=== PATIENT | male | born 1965 | race Caucasian/White ===

== ENCOUNTER 2018-06-07 02:07 | Emergency (ER) | payer OTHER, SELFPAY ==
[2018-06-07 02:08] VITALS: BP 114/82; PULSE 81; RESP 20; TEMP 36.8; O2SAT 96; BMI 32.8
--- NOTE | 2018-06-07 02:18 | EKG12_ITS ---
Test Reason : ABDOMINAL PAIN Blood Pressure : / mmHG Vent. Rate : 069 BPM Atrial Rate : 069 BPM P-R Int : 164 ms QRS Dur : 090 ms QT Int : 382 ms P-R-T Axes : 047 008 034 degrees QTc Int : 409 ms Normal sinus rhythm Normal ECG Confirmed by NATALIE BOLTON, BHAVNA ([id number]), assistant production editor SHELBY NEGRETE ([id number]) on 06/09/2018 8:19:34 AM Referred By: DAREN Confirmed By:BHAVNA ESTRADA MD
--- NOTE | 2018-06-07 02:18 | CT_ITS ---
STUDY: CT ABDOMEN AND PELVIS WITH CONTRAST REASON FOR EXAM: Male, 52 years old. Abdominal pain RADIATION DOSAGE (If Supplied By Facility): CTDIvol = ( 18.95 ) mGy, DLP = ( 1915.61 ) mGycm TECHNIQUE: Transaxial images were obtained from the dome of the diaphragm to the symphysis pubis without oral contrast. 100ml ml of Isovue 300 contrast was administered. Sagittal and coronal images were reconstructed. Individualized dose optimization techniques were used for this CT. COMPARISON: None. FINDINGS: The visualized lung bases are unremarkable. The visualized portions of the heart are within normal limits. Normal liver. Normal gallbladder and extrahepatic biliary system. Normal spleen. The pancreas is slightly edematous. There are numerous calcifications. Findings suggest possibility of mild acute pancreatitis on chronic pancreatitis. There is NO mass, abscess or pseudocyst. Normal bilateral adrenal glands. Normal right kidney. Normal left kidney. Normal visualized stomach. Normal small intestine. Normal colon. The appendix is visualized and appears normal. Normal abdominal aorta. Normal inferior vena cava. Normal retroperitoneum. Normal urinary bladder. There is NO ascites, free air, abscess or adenopathy. Normal abdominal wall. Normal osseous structures. CT/Abdomen/Pelvis W IV Cont ONLY IMPRESSION: The pancreas is slightly edematous. There are numerous calcifications. Findings suggest possibility of mild acute pancreatitis on chronic pancreatitis. There is NO mass, abscess or pseudocyst. Normal bilateral adrenal glands. Normal right kidney. Normal left kidney. Normal visualized stomach. Normal small intestine. Normal colon. The appendix is visualized and appears normal. Normal abdominal aorta. Normal inferior vena cava. Normal retroperitoneum. Normal urinary bladder. There is NO ascites, free air, abscess or adenopathy. Electronically Signed: Gautam Ospina MD at 3:48 EST , Service support ,
--- NOTE | 2018-06-07 02:19 | CT_ITS ---
STUDY: CT CHEST WITH CONTRAST REASON FOR EXAM: Male, 52 years old. Abdominal pain and chest pain RADIATION DOSAGE (If Supplied By Facility): CTDIvol = ( 18.95 ) mGy, DLP = ( 1915.61 ) mGycm TECHNIQUE: Transaxial imaging was performed following intravenous administration of 100ml ml of Isovue 300 contrast material. Individualized dose optimization techniques were used for this CT. COMPARISON: None. FINDINGS: The lungs are normal. There is no demonstrated pleural abnormality. Normal heart and pericardium. Normal mediastinum. Normal hilar regions. Normal enhanced pulmonary arteries. Normal aorta arch and descending thoracic aorta. Normal osseous structures. CT/Chest WITH Contrast IMPRESSION: Normal enhanced CT Chest examination. Electronically Signed: Gautam Ospina MD at 3:53 EST , Service support ,
--- NOTE | 2018-06-07 02:21 | ED.RN ---
NO OLD EKGS IN MUSE
[2018-06-07 02:29] VITALS: PULSE 70; RESP 13; O2SAT 97
[2018-06-07] MEDS: 0.9% Normal Saline 1,000 ML 1000 ML IV (02:29)
[2018-06-07 02:45] LABS: ALB/GLOB Ratio 0.8 RATIO (0.9-2.4); AST(SGOT) 12 U/L (15-37); Alanine Aminotransfer ALT/SGPT 28 U/L (16-61); Albumin, Serum 3.6 g/dL (3.2-5.0); Alkaline Phosphatase 111 U/L (45-117); Anion Gap 9 (5-15); BUN 10 mg/dL (7-18); BUN/Creat Ratio 11.8 RATIO (10-20); Calcium,Total 8.6 mg/dL (8.5-10.1); Chloride 105 mmol/L (98-107); Creatinine, Serum 0.84 mg/dL (0.70-1.30); EST Glomerular Filtration Rate 101 mL/min (>60); Est Glom Filt Rate - Afr Amer 123 mL/min (>60); Estimated Creatinine Clearance 97.27 ml/min; Globulin 4.4 g/dL (2.2-4.2); Glucose 117 mg/dL (74-106); Potassium 3.6 mmol/L (3.5-5.1); Sodium Level 141 mmol/L (136-145)
[2018-06-07 03:02] LABS: Lipase 2920 U/L (73-393)
[2018-06-07 03:10] LABS: Absolute Lymphocyte Count 2.57 X10^3/ul (0.83-4.51); Absolute Neutrophil Count 6.9 X10^3/uL (2.0-7.7); Basophil# 0.06 X10^3/uL; Basophil% 0.5 % (0-1); Eosinophil# 0.36 X10^3/uL; Eosinophils% 3.2 % (0-5); Hematocrit 43.9 % (40-54); Hemoglobin 14.8 g/dl (13.0-16.5); Lymphocyte # 2.57 X10^3/ul (4.0); Lymphocyte % 23.2 % (19-41); Mean Corp Hgb Conc 33.7 g/gl (32-36); Mean Corpuscular Hgb 28.3 pg (27.0-32.0); Mean Corpuscular Volume 83.9 fL (80-94); Mean Platelet Vol. 9.9 fl (6.2-12.0); Monocyte# 1.21 X10^3/uL; Monocyte% 10.9 % (0-10); Neutrophil # 6.86 X10^3/uL (2.7-7.7); Neutrophil % 61.9 % (47-70); POSITIVE COUNT NO; POSITIVE DIFFERENTIAL NO; POSITIVE MORPHOLOGY NO; Platelet Count 298 K/mm3 (150-450); Red Blood Count 5.23 M/mm3 (4.6-6.2); White Blood Count 11.1 K/mm3 (4.4-11.0)
--- NOTE | 2018-06-07 04:04 | ED.VISSUMM ---
- ER Visit Summary Date of Service: 06/07/18 Chief Complaint: [abd pain, back pain] History of Present Illness: The patient is a 52 M [that presents with upper abdominal and back pain for the last 4-5 days. He denies any nausea or vomiting. No other radiation of the pain. He denies any fall or injury. No history of aneurysm. No neurological symptoms. He denies any chest pain or dyspnea. He overall appears well and nontoxic. He has no other complaints.] Physical Examination: [General: The patient appears well and in no apparent distress. Patient is resting comfortably on cart. Skin: Warm, dry, no pallor noted. No rash. Head: Normocephalic, atraumatic Neck: Supple, nontender. Eye: PERRLA, EOMI ENT: Moist mucus membranes, pharynx within normal limits. Cardiovascular: Regular Rate and Rhythm, no gallups or rubs Respiratory: Patient is in no distress, no accessory muscle use, lungs are clear to auscultation, no wheezing, rales or rhonchi Musculoskeletal: normal ROM, no deformity, no tenderness, no swelling. 2+ radial and DP pulses symmetric. GI: Mild epigastric tenderness to palpation, no masses appreciated. No rebound, guarding, or rigidity noted. Neurological: A&O, normal strength and sensation. GCS 15. Psychiatric: Cooperative] Test Results: [] Emergency Department Course and Treatment: [Blood work shows elevated lipase, remainder of transaminases and bilirubin are normal. EKG shows sinus rhythm with a rate of 69, no acute ischemic changes or arrhythmia. Normal intervals. No heart block. Patient was ordered morphine and Zofran however he declined. He would only accept Tylenol for pain which he took and tolerated without difficulty. On reevaluation at 0400 he is resting comfortably and states he feels improved. CT imaging shows edematous pancreas consistent with acute pancreatitis. CT imaging of the chest shows no acute process. There is no evidence of mass or other acute process. At this time I do not feel patient requires hospitalization. His pain is well controlled and he is not actively vomiting. I will write him a prescription for [place] to use for breakthrough pain if needed and instructed him on the use of this medication. He will otherwise use Tylenol [id number] as needed and as directed for pain I instructed him to follow closely with his primary provider within 24 hours He will call first thing this morning for a close follow-up appointment and I instructed him to return to the emergency department with any new or worsening symptoms. He denies any new medications. No significant alcohol intake. Patient and family understand and are agreeable with this plan of care. Patient was discharged home in stable and improved condition.] Treatment Plan: [see above] Disposition: [Discharge home, stable and improved condition] Impression: [Acute pancreatitis ] This note was generated with [employer] dictation software. It may contain incorrect words, spelling, and punctuation that were not noted in review of the chart prior to signing ED Disposition - Plan for ED Patient: Disposition: Home or Assisted Living Chief Complaint: Abd Pain Instructions: ED Pancreatitis Prescriptions: Hydrocodone Bitart/Apap 5-325 [[place] 5MG-325MG] 1 tab PO Q6H PRN PRN 3 Days #12 tab PRN Reason: Pain Referrals: Doe Mcrae, DRIVE IN TELLER-C [Primary Care Provider] -
[2018-06-07] MEDS: Acetaminophen 500 MG Tablet 1000 MG PO (04:07)
--- NOTE | 2018-06-07 04:09 | ED.DCSUM_ITS ---
- ER Visit Summary Date of Service: 06/07/18 Chief Complaint: [abd pain, back pain] History of Present Illness: The patient is a 52 M [that presents with upper abdominal and back pain for the last 4-5 days. He denies any nausea or vomiting. No other radiation of the pain. He denies any fall or injury. No history of aneurysm. No neurological symptoms. He denies any chest pain or dyspnea. He overall appears well and nontoxic. He has no other complaints.] Physical Examination: [General: The patient appears well and in no apparent distress. Patient is resting comfortably on cart. Skin: Warm, dry, no pallor noted. No rash. Head: Normocephalic, atraumatic Neck: Supple, nontender. Eye: PERRLA, EOMI ENT: Moist mucus membranes, pharynx within normal limits. Cardiovascular: Regular Rate and Rhythm, no gallups or rubs Respiratory: Patient is in no distress, no accessory muscle use, lungs are clear to auscultation, no wheezing, rales or rhonchi Musculoskeletal: normal ROM, no deformity, no tenderness, no swelling. 2+ radial and DP pulses symmetric. GI: Mild epigastric tenderness to palpation, no masses appreciated. No rebound, guarding, or rigidity noted. Neurological: A&O, normal strength and sensation. GCS 15. Psychiatric: Cooperative] Test Results: [] Emergency Department Course and Treatment: [Blood work shows elevated lipase, remainder of transaminases and bilirubin are normal. EKG shows sinus rhythm with a rate of 69, no acute ischemic changes or arrhythmia. Normal intervals. No heart block. Patient was ordered morphine and Zofran however he declined. He would only accept Tylenol for pain which he took and tolerated without difficulty. On reevaluation at 0400 he is resting comfortably and states he feels improved. CT imaging shows edematous pancreas consistent with acute pancreatitis. CT imaging of the chest shows no acute process. There is no evidence of mass or other acute process. At this time I do not feel patient requires hospitalization. His pain is well controlled and he is not actively vomiting. I will write him a prescription for [place] to use for breakthrough pain if needed and instructed him on the use of this medication. He will otherwise use Tylenol [id number] as needed and as directed for pain I instructed him to follow closely with his primary provider within 24 hours He will call first thing this morning for a close follow-up appointment and I instructed him to return to the emergency department with any new or worsening symptoms. He denies any new medications. No significant alcohol intake. Patient and family understand and are agreeable with this plan of care. Patient was discharged home in stable and improved condition.] Treatment Plan: [see above] Disposition: [Discharge home, stable and improved condition] Impression: [Acute pancreatitis ] This note was generated with [employer] dictation software. It may contain incorrect words, spelling, and punctuation that were not noted in review of the chart prior to signing ED Disposition - Plan for ED Patient: Disposition: Home or Assisted Living Chief Complaint: Abd Pain Instructions: ED Pancreatitis Prescriptions: Hydrocodone Bitart/Apap 5-325 [[place] 5MG-325MG] 1 tab PO Q6H PRN PRN 3 Days #12 tab PRN Reason: Pain Referrals: Doe Mcrae, DOCK GRADER-C [Primary Care Provider] -
[2018-06-07 04:18] VITALS: BP 127/76; PULSE 60; O2SAT 98
== END 2018-06-07 04:18 | disposition home or self-care (01) ==
PROVIDERS: Emergency Provider Emergency Medicine; Family Provider Nurse Practitioner Family; PCP Nurse Practitioner Family
DX: K85.90 Acute pancreatitis without necrosis or infection, unspecified (principal); Z72.0 Tobacco use
CPT/HCPCS: 71260; 74177; 80053; 83690; 84484; 85025; 93005; 96360; 96361; 99284; J7030; Q9967; A4216; J2405

== ENCOUNTER → 2018-07-13 10:16 | Outpatient (CLI) | payer OTHER, SELFPAY ==
[2018-07-13 12:35] LABS: AST(SGOT) 16 U/L (15-37); Alanine Aminotransfer ALT/SGPT 28 U/L (16-61); Albumin, Serum 3.6 g/dL (3.2-5.0); Alkaline Phosphatase 95 U/L (45-117); Bilirubin, Direct 0.11 mg/dL (0.00-0.30); Globulin 3.8 g/dL (2.2-4.2); Lipase 117 U/L (73-393); Protein, Total 7.4 g/dL (6.4-8.2)
== END ==
PROVIDERS: Family Provider Nurse Practitioner Family; PCP Nurse Practitioner Family; Referring Provider Internal Medicine Gastroenterology; Visit Provider Internal Medicine Gastroenterology
DX: K85.90 Acute pancreatitis without necrosis or infection, unspecified (principal); R10.9 Unspecified abdominal pain; R11.0 Nausea; R63.4 Abnormal weight loss
CPT/HCPCS: 36415; 80076; 83690

== ENCOUNTER 2018-08-25 10:17 | Emergency (ER) | payer OTHER, SELFPAY ==
[2018-08-25 10:18] VITALS: BP 98/86; PULSE 82; RESP 14; TEMP 36.6; O2SAT 96; BMI 31.1
--- NOTE | 2018-08-25 10:31 | EKG12_ITS ---
Test Reason : Blood Pressure : / mmHG Vent. Rate : 073 BPM Atrial Rate : 073 BPM P-R Int : 146 ms QRS Dur : 084 ms QT Int : 388 ms P-R-T Axes : 048 036 043 degrees QTc Int : 427 ms Normal sinus rhythm Normal ECG Confirmed by NATALIE BOLTON, BHAVNA ([id number]), pictures editor JORGE BATISTA ([id number]) on 08/29/2018 10:22:00 AM Referred By: MATTHEW Confirmed By:BHAVNA ESTRADA MD
--- NOTE | 2018-08-25 10:32 | RAD_ITS ---
STUDY: X-RAY CHEST REASON FOR EXAM: Male, 53 years old. Dizziness. Hypotension. TECHNIQUE: Single AP portable view of the chest. COMPARISON: None. FINDINGS: EKG electrodes are seen. The lungs are clear and expanded. There is no demonstrated pleural abnormality. Normal size heart. Normal mediastinum and sobia. Normal visualized pulmonary arteries. Normal visualized aortic arch and descending thoracic aorta. Normal visualized thoracic spine. Normal visualized ribs, clavicles, and shoulders. There is no demonstrated abnormality of the visualized soft tissue structures of the upper abdomen. RAD/Chest 1 View (Portable) IMPRESSION: Normal x-ray examination of the chest. Electronically Signed: Ayo Kwon, at 11:13 EDT , Service support ,
--- NOTE | 2018-08-25 10:51 | ED.VISSUMM ---
- ER Visit Summary Date of Service: 08/25/18 Chief Complaint: [] Vomiting blood today x1 History of Present Illness: The patient is a 53 M [] he indicates he suddenly vomited at least one cupful of bright red blood today, he has no history of GI bleeding nonsteroidal use for anticoagulants, no blood per rectum problems have been normal, he does indicate he has a history of nonspecific abdominal pain he had pancreatitis in June, he was told to take proton pump inhibitors which she has been doing the abdominal discomfort has persisted it is not any different than its baseline, he was seen by Dr. Solo of GI had what sounds like an EGD that showed nothing acute, no ulcers no varices, He has no history of alcohol abuse liver disorder no cardiovascular history, he is known to have a blood pressure of 90 over palp and indicates his normal blood pressure is 120/80 Physical Examination: [] General, no distress resting comfortably he has blood to his mustache HEENT is generally unremarkable The neck is supple no adenopathy Cardiovascular, regular rate and rhythm Lungs, clear bilateral Abdomen, soft nontender, rectal exam shows brown stool Extremities, no clubbing cyanosis or edema Neurologic, awake alert answering questions appropriately moving all 4 extremities Test Results: [] Emergency Department Course and Treatment: [] Given all the above and the hypotension IV fluids x2 fluid bolus, type and screen Protonix, we reached out to [facility] they are both full and cannot accept him, will be calling other tertiary care centers as there is no GI services available here at this facility and arrange for his transfer to an appropriate tertiary care center that has capacity to manage his condition I discussed all the above with him and he agrees, he remains him dynamically stable Treatment Plan: [] The patient's blood pressure after IV fluids is now 105 over about 70, his heart rate is 80 NG tube was placed and is productive about 50-100 cc of red blood on initial insertion and none afterwards, his hemoglobin is 12 his baseline hemoglobin is 15 and the rest of his labs are unremarkable EKG shows a sinus rhythm nothing acute the chest x-ray was unremarkable No GI capability at this facility, as a result we called multiple tertiary care centers to arrange for his transfer including [facility] that could not accept him, [facility] they could not accept him, [facility] but could not accept him and recommended we contact [facility], I felt the patient should be seen at tertiary care center, I called [facility] who accepted him in transfer discussed all the above with the patient and they agree to transfer via paramedics to [facility] he will be taken directly to the emergency department Disposition: [] Transfer to [facility] for management of upper GI bleed Impression: [] Vomiting blood, upper GI bleed, hypotension, history of gastritis This note was generated with [employer] dictation software. It may contain incorrect words, spelling, and punctuation that were not noted in review of the chart prior to signing ED Disposition - Plan for ED Patient: Referrals: Doe Mcrae, FINISHING ROOM OPERATOR-C [Primary Care Provider] -
--- NOTE | 2018-08-25 10:54 | ED.DCSUM_ITS ---
- ER Visit Summary Date of Service: 08/25/18 Chief Complaint: [] Vomiting blood today x1 History of Present Illness: The patient is a 53 M [] he indicates he suddenly vomited at least one cupful of bright red blood today, he has no history of GI bleeding nonsteroidal use for anticoagulants, no blood per rectum problems have been normal, he does indicate he has a history of nonspecific abdominal pain he had pancreatitis in June, he was told to take proton pump inhibitors which she has been doing the abdominal discomfort has persisted it is not any different than its baseline, he was seen by Dr. Solo of GI had what sounds like an EGD that showed nothing acute, no ulcers no varices, He has no history of alcohol abuse liver disorder no cardiovascular history, he is known to have a blood pressure of 90 over palp and indicates his normal blood pressure is 120/80 Physical Examination: [] General, no distress resting comfortably he has blood to his mustache HEENT is generally unremarkable The neck is supple no adenopathy Cardiovascular, regular rate and rhythm Lungs, clear bilateral Abdomen, soft nontender, rectal exam shows brown stool Extremities, no clubbing cyanosis or edema Neurologic, awake alert answering questions appropriately moving all 4 extremities Test Results: [] Emergency Department Course and Treatment: [] Given all the above and the hypotension IV fluids x2 fluid bolus, type and screen Protonix, we reached out to [facility] they are both full and cannot accept him, will be calling other tertiary care centers as there is no GI services available here at this facility and arrange for his transfer to an appropriate tertiary care center that has capacity to manage his condition I discussed all the above with him and he agrees, he remains him dynamically stable Treatment Plan: [] The patient's blood pressure after IV fluids is now 105 over about 70, his heart rate is 80 NG tube was placed and is productive about 50-100 cc of red blood on initial insertion and none afterwards, his hemoglobin is 12 his baseline hemoglobin is 15 and the rest of his labs are unremarkable EKG shows a sinus rhythm nothing acute the chest x-ray was unremarkable No GI capability at this facility, as a result we called multiple tertiary care centers to arrange for his transfer including [facility] that could not accept him, [facility] they could not accept him, [facility] but could not accept him and recommended we contact [facility], I felt the patient should be seen at tertiary care center, I called [facility] who accepted him in transfer discussed all the above with the patient and they agree to transfer via paramedics to [facility] he will be taken directly to the emergency department Disposition: [] Transfer to [facility] for management of upper GI bleed Impression: [] Vomiting blood, upper GI bleed, hypotension, history of gastritis This note was generated with [employer] dictation software. It may contain incorrect words, spelling, and punctuation that were not noted in review of the chart prior to signing ED Disposition - Plan for ED Patient: Referrals: Doe Mcrae, PREPARATION CENTER COORDINATOR-C [Primary Care Provider] -
[2018-08-25] MEDS: 0.9% Normal Saline 1,000 ML 999 ML IV (11:01)
[2018-08-25 11:03] LABS: Absolute Lymphocyte Count 1.04 X10^3/ul (0.83-4.51); Absolute Neutrophil Count 6.7 X10^3/uL (2.0-7.7); Basophil# 0.02 X10^3/uL; Basophil% 0.2 % (0-1); Eosinophil# 0.08 X10^3/uL; Eosinophils% 0.9 % (0-5); Hematocrit 37.5 % (40-54); Hemoglobin 12.2 g/dl (13.0-16.5); Lymphocyte # 1.04 X10^3/ul (4.0); Lymphocyte % 12.1 % (19-41); Mean Corp Hgb Conc 32.5 g/gl (32-36); Mean Platelet Vol. 9.4 fl (6.2-12.0); Monocyte# 0.81 X10^3/uL; Monocyte% 9.4 % (0-10); Neutrophil # 6.66 X10^3/uL (2.7-7.7); Neutrophil % 77.2 % (47-70); Platelet Count 249 K/mm3 (150-450); RBC Distribution Width CV 13.7 % (11.6-14.6); RBC Distribution Width SD 40.6 fl (35.1-43.9); Red Blood Count 4.52 M/mm3 (4.6-6.2); White Blood Count 8.6 K/mm3 (4.4-11.0)
[2018-08-25 11:05] LABS: POSITIVE COUNT NO; POSITIVE DIFFERENTIAL NO; POSITIVE MORPHOLOGY NO
[2018-08-25] MEDS: Ondansetron 4 MG/2 ML Vial IV (11:06)
[2018-08-25 11:10] LABS: International Normalized Ratio 1.1; Prothrombin Time (Protime)PT. 14.3 SECONDS (11.7-14.9)
--- NOTE | 2018-08-25 11:11 | CASEMGMT ---
According to patient insurance [facility] [employer] Fund OA Plus, In Network Hospitals are: [facility], [place], [facility], [facility], , [facility], [facility], [facility], [facility], [facility]. JOVANA GibsonCM
[2018-08-25 11:20] LABS: AST(SGOT) 20 U/L (15-37); Alanine Aminotransfer ALT/SGPT 30 U/L (16-61); Albumin, Serum 3.2 g/dL (3.2-5.0); Alkaline Phosphatase 98 U/L (45-117); Anion Gap 5 (5-15); BUN 11 mg/dL (7-18); BUN/Creat Ratio 13.6 RATIO (10-20); Bilirubin, Direct 0.15 mg/dL (0.00-0.30); Calcium,Total 8.1 mg/dL (8.5-10.1); Chloride 106 mmol/L (98-107); Creatinine, Serum 0.81 mg/dL (0.70-1.30); EST Glomerular Filtration Rate 106 mL/min (>60); Est Glom Filt Rate - Afr Amer 129 mL/min (>60); Estimated Creatinine Clearance 99.74 ml/min; Globulin 3.6 g/dL (2.2-4.2); Glucose 159 mg/dL (74-106); Lipase 68 U/L (73-393); Protein, Total 6.8 g/dL (6.4-8.2); Sodium Level 138 mmol/L (136-145)
--- NOTE | 2018-08-25 11:22 | RAD_ITS ---
STUDY: X-RAY - ABDOMEN/PELVIS REASON FOR EXAM: Male, 53 years old. Nasogastric tube placement. TECHNIQUE: Single AP view of the abdomen / pelvis. COMPARISON: None. FINDINGS: Normal visualized lung bases. The tip of the nasogastric tube is in the body of the stomach. There is a moderate amount of colonic fecal material. The visualized liver, spleen and kidneys are grossly normal in size and morphology. Normal soft tissue structures. Normal visualized osseous structures. RAD/Abdomen Single View (Portable) IMPRESSION: The tip of the nasogastric tube is in the body of the stomach. Electronically Signed: Ayo Kwon, at 12:41 EDT , Service support ,
[2018-08-25] MEDS: Oxymetazoline 0.05% 1 SPRAY SPRAY.BTL NASAL (11:23)
[2018-08-25 11:36] LABS: BNP,B-Type NATRIURETIC PEPTIDE 20.2 pg/mL (0-100)
[2018-08-25 12:16] VITALS: BP 109/75; PULSE 65; RESP 16; O2SAT 98
[2018-08-25 12:31] VITALS: BP 109/75; PULSE 71; RESP 16; TEMP 36.2; O2SAT 98
--- NOTE | 2018-08-25 12:36 | ED.RN ---
CALLED [facility] LINE TO GET THE NUMBER TO CALL NURSE TO NURSE REPORT AND WAS TOLD THE PT IS GOING TOT THE ER AND THEY HAVE ALL THE INFORMATION FROM THE ER DR. REPORT IS NOT NEEDED UNLESS THERE IS A CHANGE IN STATUS.
== END 2018-08-25 13:07 | disposition short-term general hospital (02) ==
LOC: ED 10:41
PROVIDERS: Emergency Provider Emergency Medicine; Family Provider Nurse Practitioner Family; PCP Nurse Practitioner Family
DX: K92.0 Hematemesis (principal); I95.9 Hypotension, unspecified; Z87.19 Personal history of other diseases of the digestive system
CPT/HCPCS: 71045; 74018; 80048; 80076; 83690; 83880; 84484; 85025; 85610; 86850; 86900; 93005; 96361; 96365; 96366; 96375; 99285; J7030; A4216; J2405; J3490

== ENCOUNTER 2018-11-11 09:43 | Day surgery (SDC) | payer OTHER, SELFPAY ==
[2018-11-09 09:10] VITALS: BMI 30.4
[2018-11-11] VITALS (7 sets, daily range): BP systolic 90–98; BP diastolic 58–67; PULSE 53–61; RESP 16; TEMP 36.1–36.7; O2SAT 94–98; BMI 30.7
--- NOTE | 2018-11-11 10:34 | HP.PCM_ITS ---
Problem List (1) Encounter for adjustment or management of vascular access device Status: Acute History and Physical Date of Admission: 11/11/18 Intake Vital Signs 11/09/18 Body Mass Index (BMI) 30.4 11/09/18 Height 5 ft 8 in 11/09/18 Weight: 202 lb 11/09/18 Body Mass Index (BMI) 30.7 11/09/18 Blood Pressure 108/69 11/09/18 Blood Pressure Location Lt brachial 11/09/18 Blood Pressure Position Standing 11/09/18 Respiratory Rate 18 Intake Visit Reasons: Port Placement Chief Complaint: Chemotherapy Education- [employer] Required: No Is patient in pain?: No Allergies No Known Allergies Allergy (Verified 11/09/18 09:10) Medications Omeprazole 40 mg PO DAILY 08/25/18 [History Confirmed 11/09/18] Calcium 600 + Vit D Tablet 11/07/18 [History Confirmed 11/09/18] Lidocaine/Prilocaine [Lidocaine-Prilocaine Cream] 1 applicatio TP DAILY PRN PRN 30 Days #1 tube 11/08/18 [Rx Confirmed 11/09/18] Ondansetron [Ondansetron Odt] 8 mg PO Q8H PRN PRN 30 Days #30 tab.rapdis 11/08/18 [Rx Confirmed 11/09/18] PFSH Medical History Adenocarcinoma of duodenum (Acute) H/O angiography (Acute) Liver lesion (Acute) Pancreatitis, chronic (Chronic) Surgical History History of esophagogastroduodenoscopy (EGD) (Acute) History of liver biopsy (Acute) Family History (Updated 11/09/18 @ 09:08 by Patsy Bernal) Uncle Lung cancer Sister CVA (cerebral vascular accident) Mother Hypertension Kidney disease Grandmother Diabetes Grandfather Diabetes Social History (Updated 11/09/18 @ 09:19 by Kurtis Anderson MD) Smoking Status: Current every day smoker alcohol intake: never HPI HPI HPI: RIZWANA CARTER is a 53 M who presents to the office today for HPI HPI Surgical H&P: Yes HPI: RIZWANA CARTER is a 53 M who presents to the office today for port placement. Patient was diagnosed with metastatic duodenal adenocarcinoma and needs access for port placement. He was originally diagnosed due to upper GI bleed. ROS General General: Yes weight change and fatigue Musc Musculoskeletal: Yes back problems Cardio Cardiovascular: Yes murmur; no pacemaker, heart disease, atrial fibrillation, high blood pressure, heart attack, heart stent, palpitations, shortness of breat with exertion or chest pain Psych Psychiatric: No depression or anxiety Resp Respiratory: No shortness of breath, No sleep apnea, No cough, No COPD, No asth ma, No emphysema, No wheezing Gastro Gastrointestinal: No abdominal pain, No nausea or vomiting, No diarrhea, No constipation, No blood in stool, No acid reflux, No hemorrhoids, Yes ulcers, No gallbladder problem, No black,tarry stools Ant Hematologic: No blood thinners Exam Const General: cooperative Orientation: alert, oriented x3 Resp Effort & Inspection: normal respiratory effort Auscultation: clear to auscultation bilaterally Cardio Rate: regular rate Rhythm: regular rhythm Heart Sounds: murmur GI Inspection: non-distended Palpation: soft, nontender Assessment & Plan Problems 1. 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 Encounter for insertion of venous access port Z45.2 Plan Patient has need for skilled access for chemotherapy for metastatic duodenal adenocarcinoma. I explained port placement to the patient in detail. I explained the risks including but not limited to bleeding, infection, pneumothorax, DVT, line infection. Patient understands the risks and is willing to proceed with surgery. Kurtis Anderson MD Pager: [facility] [address] [place] [address], [address] [place] [address] Office:
[2018-11-11] MEDS: Cefazolin 2 GM in 0.9% Normal Saline 100 ML IV (11:38)
[2018-11-11] MEDS: Bupiv/Epi 0.5% Mpf 30 ML Vial (11:58)
--- NOTE | 2018-11-11 12:22 | RAD_ITS ---
STUDY: X-RAY CHEST REASON FOR EXAM: Male, 53 years old. Port placement. TECHNIQUE: Single AP portable view of the chest. COMPARISON: Comparison is made with prior study dated August 25, 2018. FINDINGS: A right-sided portacatheter has been placed. The tip is in the midportion of the superior vena cava. The lungs are clear and expanded. There is no demonstrated pleural abnormality. Normal size heart. Normal mediastinum and sobia. Normal visualized pulmonary arteries. Normal visualized aortic arch and descending thoracic aorta. Normal visualized thoracic spine. Normal visualized ribs, clavicles, and shoulders. There is no demonstrated abnormality of the visualized soft tissue structures of the upper abdomen. RAD/CXR for Line Placement IMPRESSION: The tip of the right PICC line catheter is in the midportion of the superior vena cava. Electronically Signed: Ayo Kwon, at 13:16 EDT , Service support ,
--- NOTE | 2018-11-11 12:22 | PCM.OPRPT ---
Problem List (1) Encounter for adjustment or management of vascular access device Status: Acute Report of Operation Date of Procedure: 11/11/18 Pre-Operative Diagnosis: Need for vascular access for chemotherapy Post-Operative Diagnosis: Same Surgery/Procedure Performed:: Ultrasound and fluoroscopy guided right chest port utilizing right IJ Description of Procedure: After obtaining informed consent patient was brought back to the operating room MAC anesthesia was induced and the right chest and neck were prepped in normal sterile fashion. Ultrasound was used to evaluate both IJs and the right IJ was selected. Next, using a needle, the right IJ was accessed and a guidewire was passed on into the superior vena cava under fluoroscopy guidance. A small incision was made over the puncture site and the dilator introducer was placed over the guidewire. Next this was capped and the pocket was made for the port. 1% lidocaine with epinephrine was injected in the proposed port site. An incision was made with scalpel. Electrocautery was used to make a pocket under the skin and subcutaneous tissue. Hemostasis was obtained. Next, the catheter was tunneled up to the neck incision site and placed through the introducer. The peel-away introducer was removed and the position of the catheter was confirmed on fluoroscopy. Next, the catheter was trimmed and attached to the port with the locking device. Interrupted 2-0 Vicryl sutures were used to anchor the port to the chest wall and then the port was placed inside the pocket. The pocket was then flushed with saline and the port irrigated with saline. There was good blood return and the port flushed easily. Next, heparin was injected into the port. The skin was closed with subcutaneous interrupted 3-0 Vicryl sutures Steri-Strips. A single 3-0 Vicryl sutures placed under the skin at the neck incision site. Steri-Strips were placed as well as op sites. Patient tolerated procedure well, was taken to PACU in stable condition. Chest x-ray will be obtained. Grafts/Implants Used: 8 [employer] - Admit VTE Documentation VTE Mechan Device Prophylaxis: SCD's
--- NOTE | 2018-11-11 12:24 | DCINST_ITS ---
Discharge Diet: No Restrictions - Pain medication may cause nausea. You should typically eat light foods as you take your pain medication. Discharge Activity: Return to Normal Activity, May Shower - with your bandage in place in 1-2 days after surgery. DO NOT SHOWER WHEN YOUR PORT IS ACCESSED. Call your doctor if your incision/area has: Continuous Slow Oozing, Sudden Increased Bleeding, Increased Pain/ Swelling, Increased Redness Call your doctor if you observe: Fever of 101 or Higher Remove Dressing in (days):: 2 - When you remove the bandage, leave the steri- strips intact until they fall off. Allergies/Adverse Reactions: Allergies No Known Allergies Allergy (Verified 11/09/18 12:17) Medications to take at Discharge Omeprazole 40 mg PO BID 08/25/18 Primary Care Physician: Doe Mcrae, ROBERT-C [Primary Care Provider] - Test Results: Test results from this visit will be discussed in further detail at your follow- up appointment, if applicable. Please Follow Up With: Kurtis Anderson MD When: Please call to schedule 2 week follow up appointment. [phone]
== END 2018-11-11 14:00 | disposition home or self-care (01) ==
LOC: SDC 09:43 → AC 09:44
PROVIDERS: Family Provider Nurse Practitioner Family; PCP Nurse Practitioner Family; Referring Provider Surgery; Visit Provider Surgery
PROC: (CPT 36561; principal; 2018-11-11 11:40)
DX: Z45.2 Encounter for adjustment and management of vascular access device (principal); C17.0 Malignant neoplasm of duodenum; F17.200 Nicotine dependence, unspecified, uncomplicated; C78.7 Secondary malignant neoplasm of liver and intrahepatic bile duct; R01.1 Cardiac murmur, unspecified
CPT/HCPCS: 36561; 71045; 77001; J7120; C1788

== ENCOUNTER → 2019-01-12 06:19 | Outpatient (CLI) | payer OTHER, SELFPAY ==
[2019-01-02 08:30] VITALS: BMI 30.1
--- NOTE | 2019-01-12 06:21 | CT_ITS ---
STUDY: CT ABDOMEN AND PELVIS WITH CONTRAST REASON FOR EXAM: Male, 53 years old. 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 RADIATION DOSAGE (If Supplied By Facility): CTDIvol = ( 14.34 ) mGy, DLP = ( 963.22 ) mGycm TECHNIQUE: Transaxial images were obtained from the dome of the diaphragm to the symphysis pubis with oral contrast. 100cc IV/Oral Isovue 300 was administered. Sagittal and coronal images were reconstructed. Individualized dose optimization techniques were used for this CT. COMPARISON: Comparison is made with prior study dated December 05, 2018. FINDINGS: The visualized lung bases are unremarkable. The visualized portions of the heart are within normal limits. There is decreased attenuation of the liver consistent with steatosis. Normal gallbladder and extrahepatic biliary system. Normal spleen. There are pancreatic calcifications in the distribution of the ducts consistent with chronic pancreatitis. Since prior study, the head and uncinate process of the pancreas have decreased in size. Surgical clips are seen in the region of the uncinate process of the pancreas. Normal bilateral adrenal glands. Normal right kidney. Normal left kidney. The stomach is distended with oral contrast and residual particles. Normal small intestine. Normal colon. The appendix is visualized and appears normal. Normal abdominal aorta. Normal inferior vena cava. Normal retroperitoneum. Normal urinary bladder. Normal abdominal wall. There are mild degenerative changes of the visualized lumbar spine. CT/Abdomen/Pelvis WITH Contrast IMPRESSION: Fatty infiltration of the liver. Stable calcifications throughout the pancreas suggestive of chronic pancreatitis. Interval decrease in size of the head and uncinate process of the pancreas. Dilatation of the stomach with the oral contrast and residual food particles. Electronically Signed: Ayo Kwon, at 14:07 EDT , Service support ,
== END ==
PROVIDERS: Family Provider Nurse Practitioner Family; PCP Nurse Practitioner Family; Referring Provider Internal Medicine Medical Oncology; Visit Provider Internal Medicine Medical Oncology
DX: C17.0 Malignant neoplasm of duodenum (principal)
CPT/HCPCS: 74177; Q9967; A4216

== ENCOUNTER → 2019-03-16 07:24 | Outpatient (CLI) | payer OTHER, SELFPAY ==
[2019-03-06 08:30] VITALS: BMI 29.9
--- NOTE | 2019-03-16 07:27 | CT_ITS ---
STUDY: CT ABDOMEN AND PELVIS WITH CONTRAST REASON FOR EXAM: Male, 53 years old. Follow-up examination for duodenal carcinoma. Patient received chemotherapy. Prior treatment for fistula. RADIATION DOSAGE (If Supplied By Facility): CTDIvol = ( 13.17 ) mGy, DLP = ( 831.04 ) mGycm TECHNIQUE: Transaxial images were obtained from the dome of the diaphragm to the symphysis pubis with oral contrast. Oral and amp; IV Readi-CAT and amp; 100mL Isovue-300 100 was administered. Sagittal and coronal images were reconstructed. Individualized dose optimization techniques were used for this CT. COMPARISON: Comparison is made with prior examination dated January 12, 2019. FINDINGS: The visualized lung bases are unremarkable. The visualized portions of the heart are within normal limits. There is decreased attenuation of the liver consistent with steatosis. Mild hepatomegaly. The gallbladder is contracted. Small amount of pericholecystic fluid. There is mild splenomegaly. There are pancreatic calcifications in the distribution of the ducts consistent with chronic pancreatitis. Once again, surgical clips are seen in the region of the uncinate process of the pancreas. Normal bilateral adrenal glands. Normal right kidney. Normal left kidney. There is a marked degree of distention of the stomach with oral contrast and fluid as well as residual food particles. There is dilatation of the second portion of the duodenum as well. Normal colon. The appendix is visualized and appears normal. There is scattered atherosclerotic calcification of the abdominal aorta, without a demonstrated aneurysm. Normal inferior vena cava. Normal retroperitoneum. Normal urinary bladder. There are prostatic calcifications. There is a small umbilical hernia containing fat. There are mild degenerative changes of the visualized lumbar spine. CT/Abdomen/Pelvis WITH Contrast IMPRESSION: Mild degree of splenomegaly and hepatomegaly with diffuse fatty infiltration of the liver. Contracted gallbladder with a small amount of pericholecystic fluid. Persistent dilatation of the stomach and second portion of the duodenum with retention of fluid, oral contrast and food particles. Electronically Signed: Ayo Kwon, at 14:58 EST , Service support ,
[2019-03-16] MEDS: 0.9% Saline Lock 10 ML Syringe IV (07:50)
== END ==
PROVIDERS: Family Provider Nurse Practitioner Family; PCP Nurse Practitioner Family; Referring Provider Nurse Practitioner Family; Visit Provider Nurse Practitioner Family
DX: C17.0 Malignant neoplasm of duodenum (principal)
CPT/HCPCS: 74177; Q9967; A4216

== ENCOUNTER 2019-03-31 16:29 | Observation (INO) | payer OTHER, SELFPAY ==
[2019-03-20 08:55] VITALS: BMI 30.7
[2019-03-31] VITALS (10 sets, daily range): BP systolic 114–127; BP diastolic 70–82; PULSE 71–94; RESP 14–26; TEMP 37.3; O2SAT 91–98; BMI 31.0; BMI 30.6
--- NOTE | 2019-03-31 16:33 | EKG12_ITS ---
Test Reason : AM EKG Blood Pressure : / mmHG Vent. Rate : 087 BPM Atrial Rate : 087 BPM P-R Int : 148 ms QRS Dur : 086 ms QT Int : 348 ms P-R-T Axes : 055 032 039 degrees QTc Int : 418 ms Normal sinus rhythm Normal ECG When compared with ECG of 31-MAR-2019 16:50, MANUAL COMPARISON REQUIRED, DATA IS UNCONFIRMED Confirmed by BRETT BIRMINGHAM ([id number]), tape editor SHELBY NEGRETE ([id number]) on 04/07/2019 11:54:15 AM Referred By: Tania Kithcen Confirmed By:BRETT BIRMINGHAM
--- NOTE | 2019-03-31 16:43 | CT_ITS ---
STUDY: CTA CHEST REASON FOR EXAM: Male, 53 years old. Shortness of breath, duodenal cancer RADIATION DOSAGE (If Supplied By Facility): CTDIvol = ( 10.91 ) mGy, DLP = ( 432.29 ) mGycm TECHNIQUE: The examination was performed with the intravenous administration of IV Isovue 370 100. Post-processing of the angiographic images was performed, with multiplanar reformation and 3D reconstruction. Individualized dose optimization techniques were used for this CT. COMPARISON: 07 June 2018 FINDINGS: There is an isolated heterogeneous density in the left lower lobe anterior segmental pulmonary artery, possibly artifact versus small volume of pulmonary embolism. Remainder of the pulmonary arteries are clear. Occlusive index is estimated at less than 5%. Central pulmonary artery and right ventricle are normal without strain. Lung parenchyma is clear. Airways are patent. Pleural surfaces are intact. There is no pulmonary edema or pneumothorax. There are ill-defined subcarinal mediastinal lymph nodes measuring up to 1.1 cm. Aorta is normal. Cardiac chambers are normal in size and shape. Pericardium is normal. There are calcifications in the pancreas, refer to abdominal imaging. Osseous structures are intact. Infusion port is present in the right upper chest entering the jugular entry meeting with its tip in the SVC. CT/CTA Chest W/WO Contrast IMPRESSION: 1. Possible low volume isolated segmental pulmonary embolism. Recommend ultrasonography of the lower extremities for complete risk stratification of this patient at risk for venous thrombi embolism. 2. If pulmonary embolism is confirmed, occlusive index is low, less than 5%. 3. No acute thoracic findings. Electronically Signed: Johanna Gonzales, at 18:27 EST Tel , Service support ,
--- NOTE | 2019-03-31 16:44 | ED.DCSUM_ITS ---
- ER Visit Summary Date of Service: 03/31/19 Chief Complaint: Shortness of breath History of Present Illness: The patient is a 53 M presenting with shortness of breath and left side pain. He states this started today. Pain is worsened with deep inspiration. 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 Last chemo was 2 weeks ago. He has had chills with no fever. He has mild cough with no sputum production. Denies abdominal pain. Denies back pain. Denies other complaints. Physical Examination: Vitals are stable. Temperature 99.2. Patient is afebrile. Alert no acute distress. HEENT exam is unremarkable. Neck is supple. Lungs are clear and equal bilaterally. Heart is regular rate and rhythm. Abdomen is soft nontender nondistended. Extremities are unremarkable. Skin is warm and dry. No focal neurologic deficit. Remainder of exam is unremarkable. Emergency Department Course and Treatment: EKG is sinus rate of 76 with no acute ischemic changes. Patient was given IV fluids, morphine, Zofran. CBC shows hemoglobin 12.4, platelet 123. Chemistries show glucose 171. Urinalysis unremarkable. Troponin is negative. Lactic acid is normal. CTA chest shows possible low volume isolated segmental pulmonary embolism. Recommend ultrasonography of the lower extremities for complete risk stratification of this patient at risk for venous thrombi embolism. If pulmonary embolism is confirmed, occlusive index is low, less than 5%. Bilateral lower extremity venous Doppler shows no evidence of DVT. Patient was given Lovenox subcutaneously. He continues to have significant pain with changing positions. Discussed with hospitalist for admission. Disposition: Admission Impression: Chest pain This note was generated with [employer] dictation software. It may contain incorrect words, spelling, and punctuation that were not noted in review of the chart prior to signing ED Disposition - Plan for ED Patient:
[2019-03-31 17:17] LABS: Absolute Lymphocyte Count 1.78 X10^3/uL (0.83-4.51); Absolute Neutrophil Count 5.7 X10^3/uL (2.0-7.7); Basophil# 0.03 X10^3/uL; Basophil% 0.3 % (0-1); Eosinophil# 0.08 X10^3/uL; Eosinophils% 0.9 % (0-5); Hematocrit 38.6 % (40-54); Hemoglobin 12.4 g/dL (13.0-16.5); Lymphocyte # 1.78 X10^3/ul (4.0); Lymphocyte % 20.1 % (19-41); Mean Corp Hgb Conc 32.1 g/dL (32-36); Mean Corpuscular Hgb 29.2 pg (27.0-32.0); Mean Platelet Vol. 9.4 fl (6.2-12.0); Monocyte# 1.27 X10^3/uL; Monocyte% 14.3 % (0-10); NRBC Flagged by Analyzer 0 % (0-5); Neutrophil # 5.67 X10^3/uL (2.7-7.7); Neutrophil % 63.9 % (47-70); Platelet Count 123 K/mm3 (150-450); RBC Distribution Width CV 19.3 % (11.6-14.6); RBC Distribution Width SD 63.8 fl (35.1-43.9); Red Blood Count 4.24 M/mm3 (4.6-6.2); White Blood Count 8.9 K/mm3 (4.4-11.0)
[2019-03-31 17:18] LABS: Bacteria 0 SEEN /hpf (None Seen); Mucous, Urine 0 SEEN /hpf (<or=2+); Red Blood Cells-Urine 0 SEEN /hpf (0-5); Squamous Epithelial Cells - UA 0 SEEN /hpf (0-5); White Blood Cells 0 SEEN /hpf (0-5)
[2019-03-31] MEDS: 0.9% Normal Saline 1,000 ML 1000 ML IV (17:18)
[2019-03-31] MEDS: Ondansetron 4 MG/2 ML Vial IV (17:18)
[2019-03-31] MEDS: Morphine 4 MG/ML Syringe IV (17:18)
[2019-03-31 17:41] LABS: Anion Gap 8 (5-15); BUN 6 mg/dL (7-18); BUN/Creat Ratio 8.2 RATIO (10-20); Calcium,Total 8.8 mg/dL (8.5-10.1); Chloride 106 mmol/L (98-107); Creatinine, Serum 0.74 mg/dL (0.70-1.30); EST Glomerular Filtration Rate 119 mL/min (>60); Est Glom Filt Rate - Afr Amer 144 mL/min (>60); Estimated Creatinine Clearance 109.17 ml/min; Glucose 171 mg/dL (74-106); Potassium 3.8 mmol/L (3.5-5.1); Sodium Level 139 mmol/L (136-145)
[2019-03-31 17:46] LABS: Lactic Acid 1.3 mmol/L (0.4-2.0)
[2019-03-31 17:48] LABS: Color, Urine Yellow (Yellow); Glucose, Dipstick Normal (Normal); Ketone-Dipstick Negative (Negative); Leukocyte Esterase-Dipstick Negative /ul (Negative); Nitrite-Dipstick Negative (Negative); Occult Blood-Urine Negative /ul (Negative); Protein-Dipstick Negative (Negative); Specific Gravity, Urine 1.005 (1.002-1.030); Urine Bilirubin Dipstick Negative (Negative); Urine Clarity Clear (Clear); Urine Urobilinogen Normal (Normal); Urine pH 6.5 (5.0 - 8.0)
--- NOTE | 2019-03-31 18:37 | US_ITS ---
STUDY: VENOUS DOPPLER ULTRASOUND - BILATERAL LOWER EXTREMITIES REASON FOR EXAM: Male, 53 years old. Shortness of breath TECHNIQUE: Ultrasound evaluation of the deep vein system to include knott-scale imaging and compression was performed. Knott-scale imaging and Doppler sonographic evaluation, including duplex spectral analysis and qualitative color flow sonography, was performed. COMPARISON: None. FINDINGS: RIGHT LEG Common Femoral Vein: Normal compression, spontaneity and augmentation. Normal color Doppler. Common Femoral Vein/Greater Saphenous Junction: Normal compression, spontaneity and augmentation. Normal color Doppler. Superficial Femoral Proximal: Normal compression, spontaneity and augmentation. Normal color Doppler. Superficial Femoral Middle: Normal compression, spontaneity and augmentation. Normal color Doppler. Superficial Femoral Distal: Normal compression, spontaneity and augmentation. Normal color Doppler. Popliteal Vein: Normal compression, spontaneity and augmentation. Normal color Doppler. Posterior Tibial Vein: Normal compression, spontaneity and augmentation. Normal color Doppler. Peroneal Vein: Normal compression, spontaneity and augmentation. Normal color Doppler. The visualized soft tissues are unremarkable. LEFT LEG Common Femoral Vein: Normal compression, spontaneity and augmentation. Normal color Doppler. Common Femoral Vein/Greater Saphenous Junction: Normal compression, spontaneity and augmentation. Normal color Doppler. Superficial Femoral Proximal: Normal compression, spontaneity and augmentation. Normal color Doppler. Superficial Femoral Middle: Normal compression, spontaneity and augmentation. Normal color Doppler. Superficial Femoral Distal: Normal compression, spontaneity and augmentation. Normal color Doppler. Popliteal Vein: Normal compression, spontaneity and augmentation. Normal color Doppler. Posterior Tibial Vein: Normal compression, spontaneity and augmentation. Normal color Doppler. Peroneal Vein: Normal compression, spontaneity and augmentation. Normal color Doppler. The visualized soft tissues are unremarkable. US/Venous Duplex Imag/Patric Extrem IMPRESSION: Normal venous Doppler ultrasound of the bilateral lower extremities. Electronically Signed: Mansoor Osorio, at 19:11 EST Tel , Service support ,
[2019-03-31] MEDS: HYDROmorphone 1 MG/ML Syringe IV (18:41)
--- NOTE | 2019-03-31 20:06 | PCM.HP.STD ---
Problem List (1) Pulmonary embolism Status: Acute Qualifiers: Pulmonary embolism type: unspecified Chronicity: unspecified Acute cor pulmonale presence: unspecified Qualified Code(s): I26.99 - Other pulmonary embolism without acute cor pulmonale (2) Tobacco use Status: Chronic (3) Duodenal adenocarcinoma Status: Chronic (4) Intractable hiccups Status: Chronic (5) Neutropenia, drug-induced Status: Chronic (6) Tinea versicolor Status: Chronic History of Present Illness Date of Admission: 03/31/19 Chief Complaint: Dyspnea, flank pain The patient is a 53 y/o M w/ PMHx: Obesity, Hx Prior GI Bleed, Duodenal Adenocarcinoma w/ liver lesions following w/ Dr. Alvarado, Chronic Pancreatitis, GERD, Ongoing Tobacco use who presents to the [facility] ED on 03/31/19 with onset of dyspnea and concurrent severe 10 out of 10 left flank pain, worsened with any attempted movement and with increased respiratory effort, sudden onset on day of presentation with concurrent history of recent rhinorrhea, mild congestion as well as dry cough ongoing for the last 1 to 2 weeks with no specific fevers or chills. Work-up in the ED included T 99.2, heart rate 90, BP 127/71, respiratory rate 14, 98% on room air, CBC with WC 8.9, hemoglobin 12.4, platelet 123 with no evidence of left shift with increased monocytes, BMP with BUN/creatinine 6/0.74, glucose 171, lactic acid 1.3, troponin less than 0.015, analysis unremarkable, DVT ultrasound assessment of bilateral lower extremities negative for DVT, CTPA with possible low volume isolated segmental pulmonary embolism in the left lower lobe of the anterior segmental pulmonary artery possible artifact however with remainder of the pulmonary arteries clear with no evidence of strain, lung parenchyma clear, airways patent, ill-defined subcarinal mediastinal lymph node measuring up to 1.1 cm, no pulmonary edema or pneumothorax, infusion port present right upper chest. In the ED patient missed her normal saline, Zofran, morphine and Dilaudid therapy. Past Medical History Past Medical History (Chronic Problems): Chronic Problems (Last Reviewed 03/20/19 @ 08:54 by Na Correia) Duodenal adenocarcinoma (Chronic) Intractable hiccups (Chronic) Neutropenia, drug-induced (Chronic) Tinea versicolor (Chronic) Tobacco use (Chronic) Medical History: Medical History (Last Reviewed 03/20/19 @ 08:54 by Na Correia) Adenocarcinoma of duodenum C17.0 H/O angiography Z92.89 visceral, 08/27/18 Liver lesion K76.9 Pancreatitis, chronic K86.1 Allergies No Known Allergies Allergy (Verified 03/31/19 16:32) Home Medications: Ambulatory Orders Medication Instructions Recorded Omeprazole 40 mg PO BID 90 Days #180 12/19/18 capsule. Clotrimazole/Betamethasone Dip 45 gm TP BID #45 cream..g. 03/20/19 [Lotrisone Cream] Gabapentin [Neurontin] 100 mg PO PRN PRN 03/31/19 Surgical History: Surgical History (Last Reviewed 03/20/19 @ 08:54 by Na Correia) History of esophagogastroduodenoscopy (EGD) Z98.890 With US 09/29/18 With US 08/27/18 History of liver biopsy Z98.890 Surgical History: - - Port, Liver Bx, intervention for bleeding ulcer. Psychiatric History: No pertinent psych hx Lives: Spouse/ Significant Other Smoking Status: Current every day smoker - Patient with ongoing 1/2 pack/day cigarette tobacco usage. Tobacco Use: Cigarettes Alcohol: None Drugs: None - *Family History Maternal Family History: Family History (Last Reviewed 03/20/19 @ 08:54 by Na Correia) Uncle Lung cancer Sister CVA (cerebral vascular accident) Mother Hypertension Kidney disease Grandmother Diabetes Grandfather Diabetes History Items: Hypertension, Renal Disease Paternal Family History: Family History (Last Reviewed 03/20/19 @ 08:54 by Na Correia) Uncle Lung cancer Sister CVA (cerebral vascular accident) Mother Hypertension Kidney disease Grandmother Diabetes Grandfather Diabetes History Items: - - Patient denies any market paternal family history including heart disease, diabetes or cancer. Review of Systems Constitutional: Reports: Malaise, Weakness, Fatigue. Denies: Chills, Fever, Weight Change HEENT: Reports: Nasal Congestion, Sinus Congestion. Denies: Head Aches, Sinus Drainage Cardiovascular: Reports: Chest Pain. Denies: Light Headedness, Orthopnea, Palpitations, Syncope Respiratory: Reports: Cough, Shortness of Breath, Shortness of breath at rest, Shortness of breath upon exertion. Denies: Sputum production, Wheezing Gastrointestinal: Denies: Abdominal Pain, Nausea, Vomiting Genitourinary: Denies: Dysuria Musculoskeletal: Reports: Back Pain. Denies: Joint Pain, Joint Tenderness Skin: Denies: Rash, Wounds Neurological: Denies: Numbness, Tingling, Focal weakness Psychiatric: Denies: Anxiety, Depression, Homicidal Ideations, Suicidal Ideations Hematologic/ Lymphatic: Reports: Anemia, Easy Bruising, Easy Bleeding VTE Information - Inpt Only VTE Present on Admission: No VTE Mechan Device Prophylaxis: SCD's VTE Pharm Prophylaxis ordered?: Yes Patient Problems: Active and Suspected Problems (Last Reviewed 03/20/19 @ 08:54 by Na Correia) Pulmonary embolism (Acute) Subjective: Seated upright in the ED bed, no acute distress except with movement onset of left-sided lateral chest wall and flank severe discomfort, worse with deep respiratory effort for examination. Objective: Physical Examination: General: awake, alert, oriented x 3 and cooperative, seated upright in the ED bed, mildly fatigued appearance, no acute distress except with movement and requested deep inspiratory effort. Skin: normal color, turgor, no icterus, cyanosis. HEENT: AT/NC, EOMI, PERRLA, dry MM, no carotid bruits or JVD noted. Lungs: Decreased effort secondary to discomfort, diminished bases, no obvious rales, rhonchi or wheezing. Heart: Regular rate and rhythm; no gallop, rub audible, no reproducible discomfort with palpation of the left chest and flank region. Abdomen: soft, NTTP, ND, normal BS, no HSM. Extremities: no cyanosis, clubbing, or edema. Neurological: patient awake, alert, oriented x 3; cognitive function intact; pupils equally reactive to light and accomodation; cranial nerves II-XII grossly normal, moving all 4 extremities, no focal deficits, strength severely global decrease secondary to acute complaints. Psychiatric: affect appears fatigued, mildly uncomfortable following examination, no acute evidence of depressive or anxiety feelings. - Physical Exam Vitals/I&O's: Vital Signs Temp Pulse Resp BP Pulse Ox 99.2 F H 80 16 114/73 94 03/31/19 16:30 03/31/19 19:33 03/31/19 19:33 03/31/19 19:33 03/31/19 19:33 Oxygen Delivery Method Room Air Weight: 198 lb 3.129 oz Body Mass Index (BMI) 31.0 Intake and Output for Last 24 Hours 03/29/19 03/30/19 03/31/19 23:59 23:59 23:59 Intake Total 1000 / 1000 Balance 1000 / 1000 Laboratory Results 03/31/19 17:04: WBC 8.9, RBC 4.24 L, Hgb 12.4 L, Hct 38.6 L, MCV 91.0, MCH 29.2, MCHC 32.1, RDW Std Deviation 63.8 H, RDW Coeff of Rc 19.3 H, Plt Count 123 L, MPV 9.4, Immature Gran % (Auto) 0.500, Neut % (Auto) 63.9, Lymph % (Auto) 20.1, [place] % (Auto) 14.3 H, Eos % (Auto) 0.9, Baso % (Auto) 0.3, Absolute Neuts (auto) 5.7, Absolute Lymphs (auto) 1.78, Nucleated RBC % 0 03/31/19 17:04: Sodium 139, Potassium 3.8, Chloride 106, Carbon Dioxide 25.0, Anion Gap 8, BUN 6 L, Creatinine 0.74, Estim Creat Clear Calc 109.17, Est GFR (MDRD) Af Amer 144, Est GFR (MDRD) Non-Af 119, BUN/Creatinine Ratio 8.2 L, Glucose 171 H, Calcium 8.8, Troponin I < 0.015 03/31/19 17:04: Lactic Acid 1.3 03/31/19 17:14: Urine Color Yellow, Urine Clarity Clear, Urine pH 6.5, Ur Specific [place] 1.005, Urine Protein Negative, Urine Glucose (UA) Normal, Urine Ketones Negative, Urine Occult Blood Negative, Urine Nitrite Negative, Urine Bilirubin Negative, Urine Urobilinogen Normal, Ur Leukocyte Esterase Negative, Urine RBC 0 SEEN, Urine WBC 0 SEEN, Ur Squamous Epith Cells 0 SEEN, Urine Bacteria 0 SEEN, Urine Mucus 0 SEEN Assessment/Plan All Active Problems (Last Reviewed 03/20/19 @ 08:54 by Na Correia) Encounter for education (Acute) Encounter for adjustment or management of vascular access device (Acute) Chemotherapy management, encounter for (Acute) Toothache (Acute) Pulmonary embolism (Acute) The patient is a 53 y/o M w/ PMHx: Obesity, Hx Prior GI Bleed, Duodenal Adenocarcinoma w/ liver lesions following w/ Dr. Alvarado, Chronic Pancreatitis, GERD, Ongoing Tobacco use who presents to the [facility] ED on 03/31/19 with onset of dyspnea and concurrent severe 10 out of 10 left flank pain, worsened with any attempted movement and with increased respiratory effort, sudden onset on day of presentation with concurrent history of recent rhinorrhea, mild congestion as well as dry cough ongoing for the last 1 to 2 weeks with no specific fevers or chills. 1. Dyspnea, pleuritic chest discomfort, questionable pulmonary embolism: DVT ultrasound assessment of bilateral lower extremities negative for DVT, CTPA with possible low volume isolated segmental pulmonary embolism in the left lower lobe of the anterior segmental pulmonary artery possible artifact however with remainder of the pulmonary arteries clear with no evidence of strain, lung parenchyma clear, airways patent, ill-defined subcarinal mediastinal lymph node measuring up to 1.1 cm, no pulmonary edema or pneumothorax, infusion port present right upper chest, EKG without acute findings, trop x 1 normal. Will admit to PCU, maintain on cardiac telemetry, obtain cardiac enzyme series, obtain mag and supplement if needed, obtain repeat AM EKG, also per discussion with ED physician will initiate therapeutic lovenox as a caution but still lower suspicion for PE, will hydrate, repeat CXR in AM and obtain respiratory viral panel as possibly viral etiology. If decision to continue therapeutic lovenox will need cost investigation. 2. Duodenal Adenocarcinoma: Patient w/ duodenal adenocarcinoma w/ liver lesions following w/ Dr. Alvarado, EGD on 09/29/2018 which showed a 4 cm nonobstructing, nonbleeding duodenal ulcer w/ Bx duodenal ulcer showed poorly differentiated carcinoma with ulceration, follow-up CT chest abdomen and pelvis on 10/20/2018 showed no metastasis in the lungs, abdomen showed 2 hypodense lesions suggestive of metastatic disease 1.5 and 1.6 cm each w/ CT-guided biopsy of the liver lesions 11/02/2018 w/ adenocarcinoma poorly differentiated, findings compatible with metastatic adenocarcinoma of duodenal origin. 03/20/19 Dr. Alvarado visit w/ noted planned chemotherapy with folfox q 2 weeks without 5FU bolus and Oxaliplatin 75mg/m2, most recently CT on 03/16/2019 shows no liver lesions, dilated duodenum, planned outpatient EGD per Dr. Solo. Will consult Dr. Alvarado, obtain mag and phos levels and replete. 3. Chronic Normocytic Anemia: Admission Hgb 12.4, appears baseline 4. Chronic Thrombocytopenia: Admission Plt 123, stable from prior, ongoing chemotherapy as etiology. 5. Tinea Versicolor: Initiated recently on treatment with Lotrisone. 6. Chronic Hiccups: Continued on neurontin therapy. 7. Tobacco Abuse: Encouraged cessation, inpatient consultation per RT, NR if desired. 8. GERD w/ Hx GI Bleed: Maintain on protonix, complicates presentation. 9. DVT Prophylaxis: SCDs, lovenox. Code Visit OBSV E&M: 26876 Initial observation care L3
[2019-03-31] MEDS: Enoxaparin 100 MG/ML Syringe 90 MG SC (20:43)
--- NOTE | 2019-03-31 21:13 | ECHOD_ITS ---
Reason For Study: Dyspnea/SOB Procedure This was a 2D Doppler, Color Flow transthoracic echocardiogram. Myocardial strain analysis was performed in this exam to aid in the assessment of cardiac function. Exam performed portable in patient room. Left Ventricle Normal LV size. Left ventricular systolic function is normal. The estimated ejection fraction is 60 %. Stage 2 diastolic dysfunction. No regional wall motion abnormalities noted. Right Ventricle Normal RV size. Normal systolic function. Atria Normal left atrium. Normal right atrium. Mitral Valve Normal mitral valve. Tricuspid Valve Normal tricuspid valve. Mild (1+) tricuspid valve insufficiency. Pulmonary artery systolic pressure is 36 mmHg. Aortic Valve Normal aortic valve. Pulmonic Valve Normal pulmonic valve. Great Vessels Normal aortic root. Pericardium/Pleural No pericardial effusion. MMode/2D Measurements & Calculations LVIDd: 5.3 cm IVSd: 1.0 cm Ao root diam: 3.2 cm LVIDs: 3.5 cm LVPWd: 0.97 cm RVDd: 4.3 cm FS: 33.7 % LAV(MOD-bp): 46.1 ml LVAd ap4: 37.1 cm2 SV(MOD-sp4): 90.7 ml LAV(MOD-bp) Indexed: 22.9 ml/m2 EDV(MOD-sp4): 133.2 ml LAV(MOD-sp2): 45.7 ml EDV(sp4-el): 135.7 ml LAV(MOD-sp4): 40.4 ml LVAs ap4: 18.3 cm2 ESV(MOD-sp4): 42.5 ml ESV(sp4-el): 42.7 ml EF(MOD-sp4): 68.1 % EF(sp4-el): 68.5 % SV(sp4-el): 93.0 ml LA A4 area: 16.6 cm2 LA dimension(2D): 3.9 cm RA A4 area: 18.7 cm2 Doppler Measurements & Calculations MV E max patrice: 87.6 cm/sec Lat Peak E' Patrice: 12.8 cm/sec Med Peak E' Patrice: 10.5 cm/sec MV A max patrice: 74.7 cm/sec E/E' lat: 6.9 E/E' med: 8.3 MV E/A: 1.2 Ao V2 max: 181.2 cm/sec LV V1 max: 151.1 cm/sec PA V2 max: 116.3 cm/sec Ao max P.1 mmHg LV V1 max P.1 mmHg Ao V2 mean: 125.2 cm/sec Ao mean P.0 mmHg Ao V2 VTI: 30.4 cm TR max patrice: 285.3 cm/sec TR max P.6 mmHg Interpretation Summary Normal LV size. Left ventricular systolic function is normal. The estimated ejection fraction is 60 %. Stage 2 diastolic dysfunction. Mild (1+) tricuspid valve insufficiency. Pulmonary artery systolic pressure is 36 mmHg. The global longitudinal strain = -21.2% (abnormal). Ordering Physician: Tania Kitchen Referring Physician: Doe Mcrae Performed By: Briseyda Rhodes, PACO, RVT
[2019-03-31 21:30] LABS: Magnesium 2.2 mg/dL (1.6-2.6); Phosphorus 3.2 mg/dL (2.5-4.9)
[2019-03-31] MEDS: 0.9% Normal Saline 1,000 ML 100 ML IV (21:35)
[2019-03-31 21:39] LABS: BNP,B-Type NATRIURETIC PEPTIDE 3.8 pg/mL (0-100)
[2019-03-31] MEDS: HYDROcodone Bitartrate/Apap 5/325 Tablet PO (22:39)
[2019-03-31] MEDS: Pantoprazole Sodium 40 MG Tablet PO (22:39)
[2019-03-31] MEDS: Ipratropium/Albuterol Sulfate 3 ML AMPUL.NEB INHALATION (23:06)
[2019-04-01 03:15] VITALS: PULSE 86
[2019-04-01 03:30] VITALS: BP 98/68; PULSE 91; RESP 16; TEMP 37.3; O2SAT 96
[2019-04-01 03:53] LABS: Absolute Lymphocyte Count 1.71 X10^3/uL (0.83-4.51); Absolute Neutrophil Count 5.2 X10^3/uL (2.0-7.7); Basophil# 0.03 X10^3/uL; Basophil% 0.3 % (0-1); Eosinophil# 0.05 X10^3/uL; Eosinophils% 0.6 % (0-5); Hematocrit 34.9 % (40-54); Hemoglobin 11.2 g/dL (13.0-16.5); Lymphocyte # 1.71 X10^3/ul (4.0); Lymphocyte % 19.5 % (19-41); Mean Corp Hgb Conc 32.1 g/dL (32-36); Mean Corpuscular Hgb 29.5 pg (27.0-32.0); Mean Corpuscular Volume 91.8 fL (80-94); Mean Platelet Vol. 8.9 fl (6.2-12.0); Monocyte# 1.76 X10^3/uL; NRBC Flagged by Analyzer 0 % (0-5); Neutrophil # 5.19 X10^3/uL (2.7-7.7); POSITIVE DIFFERENTIAL YES; POSITIVE MORPHOLOGY YES; Platelet Count 102 K/mm3 (150-450); RBC Distribution Width CV 19.5 % (11.6-14.6); RBC Distribution Width SD 65.2 fl (35.1-43.9); White Blood Count 8.8 K/mm3 (4.4-11.0)
[2019-04-01 04:06] LABS: Anion Gap 7 (5-15); BUN 6 mg/dL (7-18); BUN/Creat Ratio 9.4 RATIO (10-20); Calcium,Total 8.4 mg/dL (8.5-10.1); Chloride 106 mmol/L (98-107); Creatinine, Serum 0.64 mg/dL (0.70-1.30); EST Glomerular Filtration Rate 139 mL/min (>60); Est Glom Filt Rate - Afr Amer 168 mL/min (>60); Estimated Creatinine Clearance 126.23 ml/min; Glucose 101 mg/dL (74-106); Potassium 3.9 mmol/L (3.5-5.1); Sodium Level 140 mmol/L (136-145)
[2019-04-01 04:08] LABS: Differential Indicated SCAN CRITERIA MET
[2019-04-01 04:40] LABS: Anisocytosis 1+; Differential Comment SCANNED
[2019-04-01] MEDS: 0.9% Saline Lock 10 ML Syringe IV (05:25)
[2019-04-01] MEDS: Enoxaparin 100 MG/ML Syringe 90 MG SC (05:25)
--- NOTE | 2019-04-01 05:55 | EKG12_ITS ---
Test Reason : SOB Blood Pressure : / mmHG Vent. Rate : 076 BPM Atrial Rate : 076 BPM P-R Int : 158 ms QRS Dur : 084 ms QT Int : 364 ms P-R-T Axes : 058 022 044 degrees QTc Int : 409 ms Normal sinus rhythm Normal ECG Confirmed by DEBI BOLTON, APRIL ([id number]), city editor MURPHY MCCLENDON ([id number]) on 04/03/2019 9:46:50 AM Referred By: Tania Kitchen Confirmed By:APRIL CARRERA MD
[2019-04-01] MEDS: 0.9% Normal Saline 1,000 ML 100 ML IV (06:50)
[2019-04-01] MEDS: Ipratropium/Albuterol Sulfate 3 ML AMPUL.NEB INHALATION ×2 (06:51→10:35)
[2019-04-01 06:52] VITALS: PULSE 81; RESP 18; O2SAT 90
[2019-04-01 07:03] VITALS: PULSE 80
--- NOTE | 2019-04-01 07:45 | RAD_ITS ---
STUDY: X-RAY CHEST REASON FOR EXAM: Male, 53 years old. Shortness of breath, chest pain. TECHNIQUE: PA and lateral views of the chest. COMPARISON: 11/11/2018. FINDINGS: There is a right-sided Port-A-Cath with its tip in stable position in the superior vena cava. There is mild stranding in the left lung base. There is blunting of the left costophrenic angle. Normal size heart. Normal mediastinum and sobia. Normal visualized pulmonary arteries. Normal visualized aortic arch and descending thoracic aorta. The osseous structures are unchanged. There is no demonstrated abnormality of the visualized soft tissue structures of the upper abdomen. RAD/Chest PA and Lateral IMPRESSION: Mild left lower lung infiltrate or atelectasis and small left pleural effusion. Electronically Signed: Arden Stewart MD at 14:53 EST Tel , Service support ,
[2019-04-01] MEDS: Clotrimazole/Betamethasone 1 Tube 1 APPLIC TOPICAL (08:04)
[2019-04-01] MEDS: Pantoprazole Sodium 40 MG Tablet PO (08:05)
[2019-04-01 09:30] VITALS: BP 104/70; PULSE 77; RESP 14; TEMP 37.1; O2SAT 95
[2019-04-01 10:35] VITALS: PULSE 77; RESP 18
--- NOTE | 2019-04-01 11:53 | DCINST_ITS ---
- Discharge Diagnoses Current Active Problems: Current Active and Chronic Problems (Last Reviewed 03/20/19 @ 08:54 by Na Correia) Pulmonary embolism (Acute) Tobacco use (Chronic) You will use the following diet at home:: No restrictions Your food should be the consistency of: Regular Your liquids should be the consistency of: Regular/Thin Discharge Activity: Return to Normal Activity Weight Bearing Status: Full weight bearing Additional Instructions: take Tylenol only for pain-do not take Ibuprofen, aspirin, or Alleve for pain Allergies/Adverse Reactions: Allergies No Known Allergies Allergy (Verified 03/31/19 16:32) Medications to take at Discharge Omeprazole 40 mg PO BID 90 Days #180 capsule.dr 12/19/18 Clotrimazole/Betamethasone Dip [Lotrisone Cream] 45 gm TP BID #45 cream..g. 03/20/19 Gabapentin [Neurontin] 100 mg PO PRN PRN 03/31/19 Primary Care Physician: Doe Mcrae, ROBERT-C [Primary Care Provider] - Please follow up with your Primary Care Physician in: in 2 weeks Test Results: Test results from this visit will be discussed in further detail at your follow- up appointment, if applicable.
--- NOTE | 2019-04-02 08:47 | DS.PCM_ITS ---
Discharge Date and Diagnosis Date of Admission: 03/31/19 Date of Discharge: 04/01/19 - Primary Discharge Diagnosis #1 musculoskeletal chest pain #2 duodenal cancer metastatic to the liver - Secondary Discharge Diagnosis Chronic Problems (Last Reviewed 03/20/19 @ 08:54 by Na Correia) Duodenal adenocarcinoma (Chronic) Intractable hiccups (Chronic) Neutropenia, drug-induced (Chronic) Tinea versicolor (Chronic) Tobacco use (Chronic) Hospital Course and Treatment Operations: None Procedures: 2-D Echocardiogram Summary of Care Provided: The patient is a 53 year old M seen in the emergency room at [facility] with a chief complaint of left-sided chest discomfort, patient has a history of duodenal carcinoma which was recently diagnosed, it is metastatic to liver and he has received chemotherapy. Patient also had a history of recent upper GI bleed secondary to his duodenal cancer. Work-up in the emergency room included an EKG which showed no evidence of ischemic changes, patient had a CTA of his chest which indicated a possible PE-this was however question and not definite. Cardiac enzymes were unremarkable. Patient was placed in observation status on MedSurg, cardiac enzymes were cycled and these remain normal. Echocardiogram was ordered-this was performed and did not show any evidence of LV dysfunction or reduced ejection fraction. Patient underwent Doppler scan of his veins of his lower extremities, no evidence of VTE was noted. I had a lengthy discussion with the patient, I did not feel the patient had a PE, I felt his complaints of chest discomfort was much more in keeping with musculoskeletal chest pain. On 04/01/2019, patient was seen and examined: On examination he appeared in good health and spirits. Vital signs as documented. Skin warm and dry and without overt rashes. Neck without JVD. Lungs clear. Heart exam notable for regular rhythm, normal sounds and absence of murmurs, rubs or gallops. Abdomen unremarkable and without evidence of organomegaly, masses, or abdominal aortic enlargement. Extremities nonedematous. Neuro: Cranial nerves II through XII are grossly intact, no focal motor deficits were noted, sensation to light touch and pinprick intact. Psych: Patient is alert and oriented x3, he does not appear anxious or depressed On 04/01/2019, patient was seen and examined and felt to be in stable condition for discharge home. I had a lengthy discussion with the patient and his concerning his diagnosis. - Physical Exam Vitals/I&O's: Vital Signs Temp Pulse Resp BP Pulse Ox 98.7 F 77 18 104/70 95 04/01/19 09:30 04/01/19 10:35 04/01/19 10:35 04/01/19 09:30 04/01/19 09:30 Oxygen Delivery Method Room Air Weight: 88.6 kg Body Mass Index (BMI) 30.6 Intake and Output for Last 24 Hours 03/31/19 04/01/19 04/02/19 23:59 23:59 23:59 Intake Total 1693.33 / 1693.33 2348.34 / 2348.34 Balance 1693.33 / 1693.33 2348.34 / 2348.34 Microbiology Past 72 Hours 03/31/19 23:10 Mucosa - Nose Respiratory Panel (PCR) - Final Discharge Activity: Return to Normal Activity Weight Bearing Status: Full weight bearing Home Medications: Medications to take at Discharge Omeprazole 40 mg PO BID 90 Days #180 capsule.dr 12/19/18 Clotrimazole/Betamethasone Dip [Lotrisone Cream] 45 gm TP BID #45 cream..g. 03/20/19 Gabapentin [Neurontin] 100 mg PO PRN PRN 03/31/19 Primary Care Physician: Deo Mcrae NP-C [Primary Care Provider] - Please follow up with your Primary Care Physician in: in 2 weeks Disposition: Home Minutes spent on discharge:: 30 Patient Condition:: Stable Medical Necessity - Tobacco Use Smoking Status: Current every day smoker Tobacco Use: Cigarettes Meaningful Use Info Meaningful Use Diagnoses (Choose all that apply): None applicable Code Visit OBSV E&M: 55997 Observation care discharge
== END 2019-04-01 11:54 | disposition home or self-care (01) ==
LOC: ED 16:49 → PCU 20:35
PROVIDERS: Admitting Provider Family Medicine; Emergency Provider Emergency Medicine; Family Provider Nurse Practitioner Family; PCP Nurse Practitioner Family; Referring Provider Family Medicine; Visit Provider Internal Medicine
DX: R07.89 Other chest pain (principal); I26.99 Other pulmonary embolism without acute cor pulmonale; R06.02 Shortness of breath; C17.0 Malignant neoplasm of duodenum; C78.7 Secondary malignant neoplasm of liver and intrahepatic bile duct; K86.1 Other chronic pancreatitis; K21.9 Gastro-esophageal reflux disease without esophagitis; E66.9 Obesity, unspecified; F17.210 Nicotine dependence, cigarettes, uncomplicated; D64.9 Anemia, unspecified; B36.0 Pityriasis versicolor; R06.6 Hiccough; D69.59 Other secondary thrombocytopenia; T45.1X5A Adverse effect of antineoplastic and immunosuppressive drugs, initial encounter; D70.2 Other drug-induced agranulocytosis; Z68.30 Body mass index [BMI] 30.0-30.9, adult; Z79.899 Other long term (current) drug therapy; Z71.3 Dietary counseling and surveillance
CPT/HCPCS: 36591; 71046; 71275; 80048; 81001; 83605; 83735; 83880; 84100; 84484; 85025; 87633; 93005; 93306; 93970; 94640; 96361; 96365; 96372; 96374; 96375; 99218; 99251; 99285; J7030; Q9967; A4216; G0378; G0463; J2405

== ENCOUNTER 2019-08-16 04:43 | Emergency (ER) | payer OTHER, SELFPAY ==
[2019-07-11 14:16] VITALS: BMI 29.7
[2019-08-09 08:10] VITALS: BMI 29.6
[2019-08-16 04:45] VITALS: BP 108/72; PULSE 65; RESP 16; TEMP 36.6; O2SAT 98; BMI 30.4
[2019-08-16] MEDS: Ondansetron 4 MG/2 ML Vial IV (05:15)
[2019-08-16] MEDS: Morphine 4 MG/ML Syringe IV (05:15)
[2019-08-16] MEDS: 0.9% Normal Saline 1,000 ML 1000 ML IV (05:15)
[2019-08-16 05:33] LABS: Absolute Lymphocyte Count 0.83 X10^3/uL (0.83-4.51); Absolute Neutrophil Count 4.2 X10^3/uL (2.0-7.7); Basophil# 0.03 X10^3/uL; Basophil% 0.5 % (0-1); Eosinophil# 0.19 X10^3/uL; Eosinophils% 3.2 % (0-5); Hematocrit 30.3 % (40-54); Hemoglobin 10.1 g/dL (13.0-16.5); Lymphocyte # 0.83 X10^3/ul (4.0); Lymphocyte % 13.9 % (19-41); Mean Corp Hgb Conc 33.3 g/dL (32-36); Mean Corpuscular Hgb 28.6 pg (27.0-32.0); Mean Corpuscular Volume 85.8 fL (80-94); Monocyte# 0.67 X10^3/uL; Monocyte% 11.2 % (0-10); NRBC Flagged by Analyzer 0 % (0-5); Neutrophil # 4.23 X10^3/uL (2.7-7.7); Neutrophil % 70.7 % (47-70); Platelet Count 194 K/mm3 (150-450); RBC Distribution Width SD 41.1 fl (35.1-43.9); Red Blood Count 3.53 M/mm3 (4.6-6.2)
[2019-08-16 05:53] LABS: AST(SGOT) 21 U/L (15-37); Alanine Aminotransfer ALT/SGPT 43 U/L (16-61); Albumin, Serum 3.3 g/dL (3.2-5.0); Alkaline Phosphatase 165 U/L (45-117); Anion Gap 4 (5-15); BUN 7 mg/dL (7-18); BUN/Creat Ratio 11.2 RATIO (10-20); Calcium,Total 8.8 mg/dL (8.5-10.1); Chloride 108 mmol/L (98-107); Creatinine, Serum 0.62 mg/dL (0.70-1.30); EST Glomerular Filtration Rate 143 mL/min (>60); Est Glom Filt Rate - Afr Amer 174 mL/min (>60); Estimated Creatinine Clearance 128.82 ml/min; Globulin 3.4 g/dL (2.2-4.2); Glucose 122 mg/dL (74-106); Lipase 40 U/L (73-393); Potassium 3.6 mmol/L (3.5-5.1); Protein, Total 6.7 g/dL (6.4-8.2); Sodium Level 140 mmol/L (136-145)
--- NOTE | 2019-08-16 06:21 | ED.DCSUM_ITS ---
- ER Visit Summary Date of Service: 08/16/19 Chief Complaint: Abdominal pain History of Present Illness: The patient is a [address] Alvarado. He has a history of duodenal adenocarcinoma that he is getting palliative radiation and chemotherapy for. Last dose of chemo was 4 days ago. Last dose of radiation was 4 days ago. He reports that he was admitted at [facility] for the past 3 days for an upper GI bleed. Patient reports that 8 PM last night he had the onset of a sharp epigastric p ain. Is 10 of 10 at worst and 7 out of 10 currently. Is worsened by nothing. Is taken oxycodone with minimal relief. Denies any associated nausea, vomiting, or diarrhea. His last bowel was today. No melena medication. No dysuria or frequency. He reports that he has had this previously with pancreatitis. Physical Examination: Vitals: Stable. Afebrile. General: Well-nourished and well-developed. Head: Normocephalic atraumatic. Neck: Supple, no lymphadenopathy. No JVD. Nontender. Cardiovascular: Regular rate and rhythm. No murmurs. Respiratory: No respiratory distress. Clear to auscultation bilaterally. Abdominal: Soft, moderate epigastric tenderness to palpation, nondistended, normal bowel sounds. No guarding, rebound, or peritoneal signs. Back: Nontender. Extremities: Nontender, no edema. Skin: Normal color, no rash. Neurologic: Alert and oriented ?3. Cranial nerves II through XII are intact. Normal strength and sensation. Psych: Normal affect. Test Results: CBC shows an H&H 10.1 30.3, segmented for 71, lymphocytes 14, monocytes of 11. Chem-7 shows a chloride of 108, glucose 120, creatinine 0.62. LFTs show an alk phos 165. Lipase is 40. Emergency Department Course and Treatment: Patient was given a dose of morphine and Zofran IV. He is resting more comfortably. I had a prolonged discussion with him about possible treatment of his pain on a more long-term basis. We discussed possibility of fentanyl patch. He was given a dose of fentanyl IV to see if this does help with his pain. Treatment Plan: Patient will be discharged with instructions to follow-up with his oncologist in 2 hours as previously scheduled. Speak with him about a fentanyl patch or other opioid pain control. Return to the emergency department for any worsening symptoms. Disposition: To home in improved and stable condition. Impression: 1. Duodenal cancer with metastases. This note was generated with [employer] dictation software. It may contain incorrect words, spelling, and punctuation that were not noted in review of the chart prior to signing ED Disposition - Plan for ED Patient: Instructions: ED Chronic Pain Referrals: Doctor,Your [STAFF PHYSICIAN] - Keep Sara appointment
[2019-08-16] MEDS: fentaNYL 100 MCG/2 ML Ampul 25 MCG IV (06:38)
[2019-08-16 06:45] VITALS: BP 105/69; PULSE 57; RESP 16; O2SAT 98
== END 2019-08-16 06:51 | disposition home or self-care (01) ==
LOC: ED 05:05
PROVIDERS: Emergency Provider Emergency Medicine; PCP Nurse Practitioner Family
DX: C17.0 Malignant neoplasm of duodenum (principal); C79.9 Secondary malignant neoplasm of unspecified site; Z87.19 Personal history of other diseases of the digestive system; Z86.711 Personal history of pulmonary embolism; Z79.899 Other long term (current) drug therapy
CPT/HCPCS: 36591; 80053; 83690; 85025; 96361; 96374; 96375; 99284; J7030; A4216; J2405

== ENCOUNTER 2019-09-12 08:47 | Outpatient (RCR) | payer OTHER, SELFPAY ==
[2019-07-11 14:16] VITALS: BMI 29.7
[2019-09-04 08:45] VITALS: BMI 28.0
== END 2019-10-08 23:59 ==
LOC: NS 08:47
PROVIDERS: PCP Nurse Practitioner Family; Visit Provider Student in an Organized Health Care Education/Training Program
DX: Z71.3 Dietary counseling and surveillance (principal); C17.0 Malignant neoplasm of duodenum
CPT/HCPCS: 97802

== ENCOUNTER 2019-10-11 08:49 | Emergency (ER) | payer OTHER, SELFPAY ==
[2019-07-11 14:16] VITALS: BMI 29.7
[2019-10-05 12:56] VITALS: BMI 28.0
[2019-10-11 08:50] VITALS: BP 126/68; PULSE 53; RESP 18; TEMP 36.6; O2SAT 100; BMI 27.1
--- NOTE | 2019-10-11 08:56 | CT_ITS ---
STUDY: CT ABDOMEN AND PELVIS WITHOUT CONTRAST REASON FOR EXAM: Male, 54 years old. ABD PAIN, HX DUODENAL CANCER RADIATION DOSAGE (If Supplied By Facility): CTDIvol = ( 8.25 ) mGy, DLP = ( 397.91 ) mGycm TECHNIQUE: Transaxial images were obtained from the dome of the diaphragm to the symphysis pubis without oral contrast, and without intravenous contrast. Sagittal and coronal images were reconstructed. Individualized dose optimization techniques were used for this CT. COMPARISON: Comparison is made with prior examination dated March 16, 2019. FINDINGS: The visualized lung bases are unremarkable. The visualized portions of the heart are within normal limits. There is decreased attenuation of the liver consistent with steatosis. There are surgical clips in the gallbladder fossa consistent with a prior cholecystectomy. Normal spleen. There are pancreatic calcifications in the distribution of the ducts consistent with chronic pancreatitis. Surgical clips are seen in the region of the head and uncinate process of the pancreas. Since prior study, there is progressive soft tissue density in the region of the head of the pancreas and adjacent second portion of the duodenum. A repeat scan with oral contrast is recommended for better delineation of the process. Normal bilateral adrenal glands. Normal right kidney. Normal left kidney. Normal visualized stomach. Normal small intestine. Normal colon. The appendix is visualized and appears normal. Normal abdominal aorta. Normal inferior vena cava. Normal retroperitoneum. Normal urinary bladder. Normal abdominal wall. There are degenerative changes of the visualized lumbar spine. CT/Abdomen/Pelvis without Cont IMPRESSION: Since prior study, there has been progressive soft tissue density in the region of the head of the pancreas as well as the posterior pancreas and the descending portion of the duodenum. Progressive neoplastic involvement should be ruled out. A repeat CT scan with oral contrast is recommended. Diffuse pancreatic calcifications suggestive of chronic pancreatitis. Electronically Signed: Ayo Kwon, at 10:31 EDT , Service support ,
[2019-10-11] MEDS: 0.9% Normal Saline 1,000 ML 125 ML IV (09:17)
[2019-10-11] MEDS: Ondansetron 4 MG/2 ML Vial IV (09:19)
[2019-10-11] MEDS: Morphine 4 MG/ML Syringe IV (09:19)
[2019-10-11 09:26] VITALS: BP 126/84; PULSE 47; RESP 18; O2SAT 98
[2019-10-11 09:33] LABS: Absolute Lymphocyte Count 0.59 X10^3/uL (0.83-4.51); Absolute Neutrophil Count 5.1 X10^3/uL (2.0-7.7); Basophil# 0.03 X10^3/uL; Basophil% 0.5 % (0-1); Eosinophil# 0.12 X10^3/uL; Eosinophils% 1.8 % (0-5); Hemoglobin 10.5 g/dL (13.0-16.5); Lymphocyte # 0.59 X10^3/ul (4.0); Mean Corp Hgb Conc 31.8 g/dL (32-36); Mean Corpuscular Hgb 28.3 pg (27.0-32.0); Mean Corpuscular Volume 88.9 fL (80-94); Mean Platelet Vol. 9.6 fl (6.2-12.0); Monocyte# 0.65 X10^3/uL; Monocyte% 9.9 % (0-10); NRBC Flagged by Analyzer 0 % (0-5); Neutrophil # 5.14 X10^3/uL (2.7-7.7); Neutrophil % 78.2 % (47-70); POSITIVE DIFFERENTIAL YES; Platelet Count 362 K/mm3 (150-450); RBC Distribution Width CV 19.9 % (11.6-14.6); RBC Distribution Width SD 64.1 fl (35.1-43.9); Red Blood Count 3.71 M/mm3 (4.6-6.2); White Blood Count 6.6 K/mm3 (4.4-11.0)
[2019-10-11 09:34] LABS: Differential Indicated SCAN CRITERIA MET
[2019-10-11 10:00] LABS: ALB/GLOB Ratio 0.7 RATIO (0.9-2.4); AST(SGOT) 125 U/L (15-37); Alanine Aminotransfer ALT/SGPT 141 U/L (16-61); Albumin, Serum 2.7 g/dL (3.2-5.0); Alkaline Phosphatase 946 U/L (45-117); Anion Gap 6 (5-15); BUN 9 mg/dL (7-18); BUN/Creat Ratio 17.4 RATIO (10-20); Calcium,Total 8.7 mg/dL (8.5-10.1); Chloride 107 mmol/L (98-107); Creatinine, Serum 0.52 mg/dL (0.70-1.30); EST Glomerular Filtration Rate 178 mL/min (>60); Est Glom Filt Rate - Afr Amer 216 mL/min (>60); Globulin 3.8 g/dL (2.2-4.2); Glucose 153 mg/dL (74-106); Lipase 18 U/L (73-393); Potassium 3.5 mmol/L (3.5-5.1); Protein, Total 6.5 g/dL (6.4-8.2); Sodium Level 141 mmol/L (136-145)
[2019-10-11 11:00] VITALS: PULSE 46; RESP 13; O2SAT 100
[2019-10-11 11:11] VITALS: BP 116/76
--- NOTE | 2019-10-11 11:14 | ED.DCSUM_ITS ---
History of Present Illness Chief Complaint: Abd Pain Informant: Patient Onset: Month(s) Current Severity: Mild Maximum Severity: Mild Narrative: The patient has a known history of nonresectable either duodenal or pancreatic cancer He had an extensive evaluation that discovered the above he was seen at [facility] he was to the operating room to have a Whipple procedure a few months ago and during the operative time it was determined that the tumor was not resectable and the incision was closed He has been undergoing radiation therapy, he has been having abdominal pain intermittently for months, the abdominal pain is paroxysmal, nothing makes it better or worse nothing triggers it he had exacerbation of this chronic abdominal pain yesterday it persisted he came in for evaluation This is identical to pain syndrome he is had before, he is had no nausea vomiting fever no cough normal bowel bladder habits no exposures Past Medical History - Allergies and Home Meds Allergies/Adverse Reactions: Allergies No Known Allergies Allergy (Verified 10/11/19 08:50) Primary Care Physician: Doe Mcrae, [employer]-C [Primary Care Provider] - Past Medical History: - - Nonresectable duodenal or pancreatic cancer Surgical History: - Smoking Status: Former smoker Review of Systems General: Denies: Chills, Fever, Sweats Eyes: Denies: Visual changes - bilaterally, Diplopia ENT: Denies: Rhinorrhea, Sore throat Cardiovascular: Denies: Chest pain, Palpitations Respiratory: Denies: Dyspnea, Cough, Dyspnea on exertion Gastrointestinal: Reports: Abdominal pain. Denies: Nausea, Vomiting, Diarrhea, Melena, Hematochezia Genitourinary: Denies: Dysuria, Hematuria, Frequency Musculoskeletal: Denies: Back pain, Extremity Pain Skin: Denies: Rash, Wounds Neurological: Denies: Headache, Weakness, Numbness Physical Exam Vital Signs/Narrative: Vital Signs Temp Pulse Resp BP Pulse Ox 10/11/19 11:11 116/76 10/11/19 11:00 46 L 13 100 10/11/19 09:26 47 L 18 126/84 H 98 10/11/19 08:50 98 F 53 L 18 126/68 H 100 General: Well nourished, Well developed, No Acute Distress Head: Normocephalic, Atraumatic Eyes: Perrl, EOMI ENT: Moist mucous membranes, No rhinorrhea Neck: Supple, Nontender Cardiovascular: Regular rate, Regular rhythm, No murmurs Respiratory: No distress, CTA bilaterally, Chest nontender Abdomen: Soft, Nontender, Nondistended, Normal bowel sounds, - - Nonspecific pain to the right flank that radiates around to the right middle abdomen there is no rebound guarding organomegaly just his complaints of pain there is no fullness no warmth no signs of bowel obstruction Back: Nontender, Normal Inspection Extremities: Nontender, No edema Skin: Normal color, No rash Neurological: Alert, Oriented x3, Cranial nerves II-XII grossly intact, Normal Strength, Normal Sensation Psychological: Normal affect, Normal Mood Diagnostic/Tx/Re-eval - Medical Decision Making Given all the above screening labs CT and pain management He is under the care of oncology he has completed his radiation therapy course he scheduled for additional testing to see about prognosis other management options Patient's ED screening evaluation was unremarkable, the CT scan does show the mass, No other acute abnormalities, He has been medicated feels better at this time he is feeling comfortable discharge home to follow-up with his oncologist in a day or 2 [place] as a rescue medicine and return for change in symptoms Home stable Final impression unresectable abdominal cancer, acute recurrent abdominal pain ED Disposition - Plan for ED Patient: Diagnosis: Abdominal pain, Radiation gastritis Instructions: ED Unknown Causes of Abdominal Pain Male Prescriptions: Hydrocodone Bitart/Apap 5-325 [[place] 5MG-325MG] 1 tab PO Q4H PRN PRN 2 Days #10 tab PRN Reason: Pain Prescription Printed Referrals: Doe Mcrae, ROBERT-C [Primary Care Provider] -
[2019-10-11 11:22] LABS: Red Blood Cells-Urine 0 SEEN /hpf (0-5); Squamous Epithelial Cells - UA 0 SEEN /hpf (0-5); White Blood Cells 0 SEEN /hpf (0-5)
[2019-10-11 11:24] LABS: Color, Urine Yellow (Yellow); Glucose, Dipstick Normal (Normal); Ketone-Dipstick Negative (Negative); Leukocyte Esterase-Dipstick Negative /ul (Negative); Nitrite-Dipstick Negative (Negative); Occult Blood-Urine Negative /ul (Negative); Protein-Dipstick Negative (Negative); Specific Gravity, Urine 1.015 (1.002-1.030); Urine Bilirubin Dipstick Negative (Negative); Urine Clarity Sl. Cloudy (Clear); Urine Urobilinogen Normal (Normal)
[2019-10-11 11:29] LABS: Bacteria 1+ /hpf (None Seen); Mucous, Urine 1+ /hpf (<or=2+)
[2019-10-11 12:38] VITALS: BP 104/59; PULSE 56; RESP 19; O2SAT 100
== END 2019-10-11 12:39 | disposition home or self-care (01) ==
LOC: ED 11:03
PROVIDERS: Emergency Provider Emergency Medicine; PCP Nurse Practitioner Family
DX: K52.0 Gastroenteritis and colitis due to radiation (principal); Z87.891 Personal history of nicotine dependence
CPT/HCPCS: 36591; 74176; 80053; 81001; 83690; 85025; 96361; 96374; 96375; 99282; J2405

== ENCOUNTER → 2019-10-13 07:45 | Outpatient (CLI) | payer OTHER, SELFPAY ==
[2019-07-11 14:16] VITALS: BMI 29.7
[2019-09-04 08:45] VITALS: BMI 28.0
[2019-10-11 08:50] VITALS: BMI 27.1
--- NOTE | 2019-10-13 07:47 | CT_ITS ---
STUDY: CT ABDOMEN AND PELVIS WITH CONTRAST REASON FOR EXAM: Male, 54 years old. ASSESSING RESPONSE TO CHEMO- SMALL BOWEL CANCER RADIATION DOSAGE (If Supplied By Facility): CTDIvol = ( 13.58 ) mGy, DLP = ( 716.40 ) mGycm TECHNIQUE: Transaxial images were obtained from the dome of the diaphragm to the symphysis pubis with oral contrast. Oral and amp; IV and amp; 100mL Isovue-370 was administered. Sagittal and coronal images were reconstructed. Individualized dose optimization techniques were used for this CT. COMPARISON: Comparison is made with prior examination dated October 11, 2019. FINDINGS: The visualized lung bases are unremarkable. The visualized portions of the heart are within normal limits. There is decreased attenuation of the liver consistent with steatosis. There is evidence of a intrahepatic biliary ductal dilatation more pronounced than on prior examination. There are surgical clips in the gallbladder fossa consistent with a prior cholecystectomy. Normal spleen. There are pancreatic calcifications in the distribution of the ducts consistent with chronic pancreatitis. The pancreatic duct is dilated. Normal bilateral adrenal glands. Normal right kidney. Normal left kidney. There is soft tissue density and circumferential narrowing of the distal portion of the stomach involving the antrum and possibly the first portion of the duodenum. This evidence of a 2.3 cm x 1.7 cm soft tissue density within the second portion of the duodenum. Soft tissue density is seen along the anterior aspect of the right pararenal space. Normal colon. The appendix is visualized and appears normal. Normal abdominal aorta. Normal inferior vena cava. Normal retroperitoneum. Normal urinary bladder. Normal abdominal wall. There are degenerative changes of the visualized lumbar spine. CT/Abdomen/Pelvis WITH Contrast IMPRESSION: Intrahepatic bladder ductal dilatation as well as dilated pancreatic duct. Soft tissue mass causing circumferential narrowing of the distal stomach extending into the duodenum. Soft tissue density is also seen in the right anterior pararenal space. Recurrent or progressive carcinoma should be ruled out. Diffuse pancreatic calcifications. The remainder of examination is unchanged. Electronically Signed: Ayo Kwon, at 9:41 EDT , Service support ,
[2019-10-13] MEDS: 0.9% Saline Lock 10 ML Syringe IV (08:02)
== END ==
PROVIDERS: PCP Nurse Practitioner Family; Referring Provider Internal Medicine Medical Oncology; Visit Provider Internal Medicine Medical Oncology
DX: C17.0 Malignant neoplasm of duodenum (principal); Z79.899 Other long term (current) drug therapy
CPT/HCPCS: 74177; Q9967; A4216

== ENCOUNTER 2019-12-07 14:07 | Observation (INO) | payer OTHER, SELFPAY ==
[2019-07-11 14:16] VITALS: BMI 29.7
[2019-12-07 08:15] VITALS: BMI 25.4
[2019-12-07 09:15] LABS: Absolute Lymphocyte Count 0.58 X10^3/uL (0.83-4.51); Absolute Neutrophil Count 6.1 X10^3/uL (2.0-7.7); Basophil# 0.04 X10^3/uL; Basophil% 0.5 % (0-1); Eosinophils% 1.3 % (0-5); Hematocrit 33.3 % (40-54); Lymphocyte # 0.58 X10^3/ul (4.0); Lymphocyte % 7.4 % (19-41); Mean Corpuscular Hgb 27.8 pg (27.0-32.0); Mean Corpuscular Volume 84.3 fL (80-94); Mean Platelet Vol. 9.8 fl (6.2-12.0); Monocyte# 0.87 X10^3/uL; Monocyte% 11.1 % (0-10); NRBC Flagged by Analyzer 0 % (0-5); Neutrophil # 6.11 X10^3/uL (2.7-7.7); Neutrophil % 77.9 % (47-70); POSITIVE DIFFERENTIAL YES; Platelet Count 343 K/mm3 (150-450); RBC Distribution Width CV 18.8 % (11.6-14.6); RBC Distribution Width SD 55.8 fl (35.1-43.9); Red Blood Count 3.95 M/mm3 (4.6-6.2); White Blood Count 7.8 K/mm3 (4.4-11.0)
[2019-12-07 09:22] LABS: Differential Indicated SCAN CRITERIA MET
[2019-12-07 09:42] LABS: AST(SGOT) 294 U/L (15-37); Alanine Aminotransfer ALT/SGPT 339 U/L (16-61); Albumin, Serum 2.3 g/dL (3.2-5.0); Alkaline Phosphatase 1222 U/L (45-117); Anion Gap 3 (5-15); BUN 7 mg/dL (7-18); Bilirubin, Direct 6.52 mg/dL (0.00-0.30); Calcium,Total 8.7 mg/dL (8.5-10.1); Chloride 104 mmol/L (98-107); Creatinine, Serum 0.63 mg/dL (0.70-1.30); EST Glomerular Filtration Rate 140 mL/min (>60); Est Glom Filt Rate - Afr Amer 170 mL/min (>60); Glucose 118 mg/dL (74-106); Potassium 3.9 mmol/L (3.5-5.1); Protein, Total 6.3 g/dL (6.4-8.2); Sodium Level 135 mmol/L (136-145)
[2019-12-07 13:32] VITALS: BP 106/68; PULSE 78; RESP 18; TEMP 36.6; O2SAT 99
[2019-12-07 13:34] VITALS: BMI 24.3
[2019-12-07 13:40] VITALS: BMI 24.3
--- NOTE | 2019-12-07 14:06 | MRI_ITS ---
STUDY: MR MRCP WITHOUT CONTRAST REASON FOR EXAM: Male, 54 years old. Elevated liver enzymes, history duodenal malignancy, jaundice; hx prev cholecystectomy, attempted Whipple procedure TECHNIQUE: Standard MRCP technique was utilized. COMPARISON: CT dated 10/13/19 FINDINGS: This study is limited by patient motion and lack of contrast. The patient is status post cholecystectomy. There is moderate to severe intrahepatic biliary duct dilatation which is increased when compared with the prior exam. The common bile duct is dilated, measuring up to 13 mm. There are no ductal stones identified. The pancreatic duct is dilated, measuring up to 5 mm. There is a 2.5 x 2.0 cm ill-defined soft tissue mass in the region of the duodenum/pancreatic head. This likely represents the patient''s known duodenal malignancy. This is not well evaluated without contrast. There is a small amount of ascites noted. MRI/MRCP Abdomen without Contrast IMPRESSION: Study limited by patient motion and lack of contrast. 2.5 x 2.0 cm ill-defined soft tissue mass in the region of the duodenum/pancreatic head. This is not well evaluated without contrast, but likely represents the patient''s known duodenal malignancy. Moderate to severe intrahepatic biliary duct dilatation which is increased when compared with the prior exam. Dilated common bile duct, measuring up to 13 mm. No ductal stones identified. Dilated pancreatic duct, measuring up to 5 mm Electronically Signed: Franki Irvin, at 16:18 EDT Tel , Service support ,
--- NOTE | 2019-12-07 14:45 | HP.PCM_ITS ---
Problem List (1) Obstructive jaundice Status: Acute (2) Duodenal adenocarcinoma Status: Chronic History of Present Illness Date of Admission: 12/07/19 The patient is a 54 year old M who presented to my office today for EGD to evaluate a PET avid lesion in the duodenum. 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 The patient notes that for the last few days he has had jaundice as well as itching. His has noted that he is not been doing well for the last few days either. 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 H/O angiography Z92.89 visceral, 08/27/18 Liver lesion K76.9 Pancreatitis, chronic K86.1 Allergies No Known Allergies Allergy (Verified 12/07/19 08:14) Home Medications: Ambulatory Orders Medication Instructions Recorded Morphine Sulfate 15 mg PO TID 10/19/19 Ondansetron [Ondansetron Odt] 4 mg PO TID PRN PRN #30 tab.rapdis 10/19/19 Oxycodone [Oxyir] 5 mg PO Q8H PRN 10/19/19 Tizanidine HCl [Zanaflex] 4 mg PO BID 10/19/19 Surgical History: Surgical History (Last Reviewed 12/07/19 @ 08:12 by Priscilla Huerta) History of cholecystectomy Z90.49 2020 [facility] History of esophagogastroduodenoscopy (EGD) Z98.890 With US 09/29/18 With US 08/27/18 History of liver biopsy Z98.890 Surgical History: - - Port placement, attempted Whipple Psychiatric History: No pertinent psych hx Smoking Status: Current some day smoker - *Family History Maternal Family History: Family History (Last Reviewed 12/07/19 @ 08:12 by Priscilla Huerta) Uncle Lung cancer Sister CVA (cerebral vascular accident) Mother Hypertension Kidney disease Grandmother Diabetes Grandfather Diabetes Review of Systems Constitutional: Denies: Anorexia, Fever HEENT: Denies: Difficulty Hearing, Difficulty Swallowing Respiratory: Denies: Cough, Shortness of Breath Gastrointestinal: Denies: Abdominal Pain, Nausea, Vomiting Skin: Reports: Jaundice Neurological: Denies: Balance problems Hematologic/ Lymphatic: Denies: Anemia VTE Information - Inpt Only VTE Present on Admission: No VTE Mechan Device Prophylaxis: SCD's Patient Problems: Active and Suspected Problems (Last Reviewed 12/07/19 @ 08:12 by Priscilla Huerta) Obstructive jaundice (Acute) - Physical Exam Vitals/I&O's: Vital Signs Temp Pulse Resp BP Pulse Ox 97.9 F 78 18 106/68 99 12/07/19 13:32 12/07/19 13:32 12/07/19 13:32 12/07/19 13:32 12/07/19 13:32 Oxygen Delivery Method Room Air Weight: 155 lb Body Mass Index (BMI) 24.3 General: Alert, Oriented x3 Neck: No JVD Lungs: Normal air movement Cardiovascular: Regular rate, Regular Rhythm Abdomen: Soft, Non Tender, Non-Distended Skin: - - Jaundice Musculoskeletal: No Muscle Wasting Neurological: Cranial nerves II-XII grossly intact Laboratory Results 12/07/19 08:45: WBC 7.8, RBC 3.95 L, Hgb 11.0 L, Hct 33.3 L, MCV 84.3, MCH 27.8, MCHC 33.0, RDW Std Deviation 55.8 H, RDW Coeff of Rc 18.8 H, Plt Count 343, MPV 9.8, Immature Gran % (Auto) 1.800 H, Neut % (Auto) 77.9 H, Lymph % (Auto) 7.4 L, [place] % (Auto) 11.1 H, Eos % (Auto) 1.3, Baso % (Auto) 0.5, Absolute Neuts (auto) 6.1, Absolute Lymphs (auto) 0.58 L, Nucleated RBC % 0 12/07/19 08:45: Sodium 135 L, Potassium 3.9, Chloride 104, Carbon Dioxide 28.0, Anion Gap 3 L, BUN 7, Creatinine 0.63 L, Est GFR (MDRD) Af Amer 170, Est GFR (MDRD) Non-Af 140, BUN/Creatinine Ratio 11.0, Glucose 118 H, Calcium 8.7, Total Bilirubin 8.10 H, Direct Bilirubin 6.52 H, AST 294 H, ALT 339 H, Alkaline Phosphatase 1222 H, Total Protein 6.3 L, Albumin 2.3 L, Globulin 4.0 12/07/19 13:45: COVID-19 (CHANELLE) Pending Current Medications Acetaminophen (Tylenol) 650 mg PO Q4H PRN PRN PRN Reason: Pain 1-10/10 or Fever Heparin Sodium (Beef Lung) () 50 units IV UD PRN PRN Reason: PICC Line Heparin Flush Sodium Chloride () 1,000 mls @ 60 mls/hr IV .[id number] KULWANT Piperacillin Sod/Tazobactam (Sod 3.375 gm/ Sodium Chloride) 50 mls @ 12.5 mls/hr IV Q8 KULWANT Piperacillin Sod/Tazobactam (Sod 3.375 gm/ Sodium Chloride) 50 mls @ 12.5 mls/hr IV X1 ONE Stop: 12/07/19 18:24 Morphine Sulfate () 2 - 4 mg IV Q2H PRN PRN PRN Reason: Pain Score 4-10/10 Morphine Sulfate () 2 - 4 mg IV Q2H PRN PRN PRN Reason: Pain Score 4-10/10 Ondansetron HCl (Zofran) 4 mg IV Q6H PRN PRN PRN Reason: NAUSEA Sodium Chloride () 10 - 40 ml IV UD PRN PRN Reason: Open End PICC Flush Sodium Chloride (0.9% Nacl (Sterile) Posiflush) 10 - 40 ml IV UD PRN PRN Reason: Port access or dressing change Assessment/Plan All Active Problems (Last Reviewed 12/07/19 @ 08:12 by Priscilla Huerta) Encounter for education (Acute) Encounter for adjustment or management of vascular access device (Acute) Chemotherapy management, encounter for (Acute) Toothache (Acute) Pulmonary embolism (Acute) Radiation gastritis (Acute) Abdominal pain (Acute) Obstructive jaundice (Acute) 54-year-old male with obstructive jaundice and scleral icterus 1. The patient has scleral icterus and upon reviewing his labs he appears to have obstructive jaundice. I have admitted the patient I will start him on IV fluids as well as IV antibiotics to prevent cholangitis. I will order an MRCP this evening to evaluate for causes of obstruction but I believe it is most likely due to his cancer. 2. I discussed ERCP in the morning with him and I will order COVID test tonight. I discussed ERCP with EGD and biopsies of this area as well as possible stent placement in the biliary duct. I discussed the risks of ERCP and EGD including but not limited to bleeding, infection, perforation of the bile duct or bowel, pancreatitis. The patient understands and is well to proceed. Kurtis Anderson MD Pager: [facility] [address] [place] [address] [address] [place] [address] Office:
[2019-12-07] MEDS: 0.9% Normal Saline 1,000 ML 60 ML IV (15:45)
[2019-12-07] MEDS: 0.9% Saline Lock 10 ML Syringe IV (15:46)
[2019-12-07] MEDS: Morphine 2 MG/ML Syringe IV (18:02)
[2019-12-07 19:47] VITALS: BP 101/65; PULSE 68; RESP 18; TEMP 36.9; O2SAT 98
[2019-12-08] VITALS (8 sets, daily range): BP systolic 96–110; BP diastolic 61–73; PULSE 58–66; RESP 16–18; TEMP 36.5–36.9; O2SAT 94–100
[2019-12-08] MEDS: Morphine 2 MG/ML Syringe IV ×2 (02:10→05:34)
[2019-12-08] MEDS: 0.9% Saline Lock 10 ML Syringe IV ×2 (02:11→05:34)
--- NOTE | 2019-12-08 05:00 | EKG12_ITS ---
Test Reason : AM EKG Blood Pressure : / mmHG Vent. Rate : 069 BPM Atrial Rate : 069 BPM P-R Int : 144 ms QRS Dur : 088 ms QT Int : 394 ms P-R-T Axes : 064 042 047 degrees QTc Int : 422 ms Normal sinus rhythm Normal ECG When compared with ECG of 01-APR-2019 05:37, No significant change was found Confirmed by LEO BOLTON, LEONARDO ([id number]), web editor MURPHY MCCLENDON ([id number]) on 12/11/2019 2:06:33 PM Referred By: Kurtis Anderson Confirmed By:DA BAILEY MD
[2019-12-08 07:15] LABS: Absolute Lymphocyte Count 0.57 X10^3/uL (0.83-4.51); Absolute Neutrophil Count 4.4 X10^3/uL (2.0-7.7); Basophil# 0.04 X10^3/uL; Basophil% 0.7 % (0-1); Eosinophil# 0.11 X10^3/uL; Eosinophils% 1.9 % (0-5); Hematocrit 29.6 % (40-54); Hemoglobin 10.1 g/dL (13.0-16.5); Lymphocyte # 0.57 X10^3/ul (4.0); Lymphocyte % 9.7 % (19-41); Mean Corp Hgb Conc 34.1 g/dL (32-36); Mean Corpuscular Hgb 27.9 pg (27.0-32.0); Mean Corpuscular Volume 81.8 fL (80-94); Mean Platelet Vol. 9.7 fl (6.2-12.0); Monocyte# 0.62 X10^3/uL; Monocyte% 10.6 % (0-10); NRBC Flagged by Analyzer 0 % (0-5); Neutrophil # 4.41 X10^3/uL (2.7-7.7); Neutrophil % 75.4 % (47-70); POSITIVE DIFFERENTIAL YES; Platelet Count 287 K/mm3 (150-450); RBC Distribution Width CV 18.7 % (11.6-14.6); RBC Distribution Width SD 53.6 fl (35.1-43.9); Red Blood Count 3.62 M/mm3 (4.6-6.2); White Blood Count 5.9 K/mm3 (4.4-11.0)
[2019-12-08 07:36] LABS: Phosphorus 2.9 mg/dL (2.5-4.9)
[2019-12-08 07:38] LABS: Differential Indicated SCAN CRITERIA MET
--- NOTE | 2019-12-08 07:43 | PCM.PN.SRG ---
Patient Problems: Active and Suspected Problems (Last Reviewed 12/07/19 @ 08:12 by Priscilla Huerta) Obstructive jaundice (Acute) Subjective: Patient had no changes overnight - Physical Exam Vitals/I&O's: Vital Signs Temp Pulse Resp BP Pulse Ox 98 F 66 18 99/63 94 12/08/19 02:07 12/08/19 02:07 12/08/19 02:07 12/08/19 02:07 12/08/19 02:07 Oxygen Delivery Method Room Air Weight: 155 lb Body Mass Index (BMI) 24.3 Intake and Output for Last 24 Hours 12/06/19 12/07/19 12/08/19 23:59 23:59 23:59 Intake Total 1031.75 / 1491.75 567.75 / 567.75 Output Total 1850 / 1850 Balance 1031.75 / 1241.75 -1282.25 / -1282.25 General: Alert, Oriented x3 Lungs: Normal air movement Abdomen: Soft, Non Tender, Non-Distended Laboratory Results 12/07/19 08:45: WBC 7.8, RBC 3.95 L, Hgb 11.0 L, Hct 33.3 L, MCV 84.3, MCH 27.8, MCHC 33.0, RDW Std Deviation 55.8 H, RDW Coeff of Rc 18.8 H, Plt Count 343, MPV 9.8, Immature Gran % (Auto) 1.800 H, Neut % (Auto) 77.9 H, Lymph % (Auto) 7.4 L, [place] % (Auto) 11.1 H, Eos % (Auto) 1.3, Baso % (Auto) 0.5, Absolute Neuts (auto) 6.1, Absolute Lymphs (auto) 0.58 L, Nucleated RBC % 0 12/07/19 08:45: Sodium 135 L, Potassium 3.9, Chloride 104, Carbon Dioxide 28.0, Anion Gap 3 L, BUN 7, Creatinine 0.63 L, Est GFR (MDRD) Af Amer 170, Est GFR (MDRD) Non-Af 140, BUN/Creatinine Ratio 11.0, Glucose 118 H, Calcium 8.7, Total Bilirubin 8.10 H, Direct Bilirubin 6.52 H, AST 294 H, ALT 339 H, Alkaline Phosphatase 1222 H, Total Protein 6.3 L, Albumin 2.3 L, Globulin 4.0 12/07/19 13:45: COVID-19 (CHANELLE) Not Detected 12/08/19 06:41: WBC 5.9, RBC 3.62 L, Hgb 10.1 L, Hct 29.6 L, MCV 81.8, MCH 27.9, MCHC 34.1, RDW Std Deviation 53.6 H, RDW Coeff of Rc 18.7 H, Plt Count 287, MPV 9.7, Immature Gran % (Auto) 1.700 H, Neut % (Auto) 75.4 H, Lymph % (Auto) 9.7 L, [place] % (Auto) 10.6 H, Eos % (Auto) 1.9, Baso % (Auto) 0.7, Absolute Neuts (auto) 4.4, Absolute Lymphs (auto) 0.57 L, Nucleated RBC % 0 12/08/19 06:41: Sodium Pending, Potassium Pending, Chloride Pending, Carbon Dioxide Pending, Anion Gap Pending, BUN Pending, Creatinine Pending, Est GFR (MDRD) Af Amer Pending, Est GFR (MDRD) Non-Af Pending, BUN/Creatinine Ratio Pending, Glucose Pending, Calcium Pending, Magnesium Pending, Total Bilirubin Pending, AST Pending, ALT Pending, Alkaline Phosphatase Pending, Total Protein Pending, Albumin Pending 12/08/19 06:41: PT Pending, INR Pending, APTT Pending 12/08/19 06:41: Phosphorus 2.9 Current Medications Acetaminophen (Tylenol) 650 mg PO Q4H PRN PRN PRN Reason: Pain 1-10/10 or Fever Heparin Sodium (Beef Lung) () 50 units IV UD PRN PRN Reason: PICC Line Heparin Flush Sodium Chloride () 1,000 mls @ 60 mls/hr IV .[id number] [facility] Last Infusion: 12/07/19 21:39 Dose: 60 mls/hr Documented by: Piperacillin Sod/Tazobactam (Sod 3.375 gm/ Sodium Chloride) 50 mls @ 12.5 mls/hr IV Q8 KULWANT Last Admin: 12/08/19 05:30 Dose: 12.5 mls/hr Documented by: Sodium Chloride () 250 mls @ 15 mls/hr IV .[id number] PRN PRN Reason: Saline Flush Last Infusion: 12/08/19 05:30 Dose: 0 mls/hr Documented by: Sodium Chloride () 250 mls @ 15 mls/hr IV .[id number] PRN PRN Reason: Additional IVPB Infusion Morphine Sulfate () 2 - 4 mg IV Q2H PRN PRN PRN Reason: Pain Score 4-10/10 Last Admin: 12/08/19 05:34 Dose: 2 mg Documented by: Morphine Sulfate () 2 - 4 mg IV Q2H PRN PRN PRN Reason: Pain Score 4-10/10 Ondansetron HCl (Zofran) 4 mg IV Q6H PRN PRN PRN Reason: NAUSEA Sodium Chloride () 10 - 40 ml IV UD PRN PRN Reason: Open End PICC Flush Last Admin: 12/08/19 05:34 Dose: 10 ml Documented by: Sodium Chloride (0.9% Nacl (Sterile) Posiflush) 10 - 40 ml IV UD PRN PRN Reason: Port access or dressing change Medical Necessity - Tobacco Use Smoking Status: Current some day smoker Assessment/Plan All Active Problems (Last Reviewed 12/07/19 @ 08:12 by Priscilla Huerta) Encounter for education (Acute) Encounter for adjustment or management of vascular access device (Acute) Chemotherapy management, encounter for (Acute) Toothache (Acute) Pulmonary embolism (Acute) Radiation gastritis (Acute) Abdominal pain (Acute) Obstructive jaundice (Acute) 54-year-old male with obstructive jaundice 1. MRCP revealed that he does indeed still have a mass at the duodenum adjacent to the pancreas. Patient has obstructive jaundice and I recommend ERCP to place stent. I will also biopsy the duodenum and ensure that there is continued malignancy. Kurtis Anderson MD Pager: [facility] [address] [place] [address], [address] [place] [address] Office:
[2019-12-08 07:47] LABS: ALB/GLOB Ratio 0.5 RATIO (0.9-2.4); AST(SGOT) 283 U/L (15-37); Alanine Aminotransfer ALT/SGPT 294 U/L (16-61); Albumin, Serum 1.9 g/dL (3.2-5.0); Alkaline Phosphatase 1101 U/L (45-117); Anion Gap 3 (5-15); BUN 5 mg/dL (7-18); BUN/Creat Ratio 10.9 RATIO (10-20); Calcium,Total 8.2 mg/dL (8.5-10.1); Chloride 104 mmol/L (98-107); Creatinine, Serum 0.46 mg/dL (0.70-1.30); EST Glomerular Filtration Rate 205 mL/min (>60); Est Glom Filt Rate - Afr Amer 248 mL/min (>60); Estimated Creatinine Clearance 173.63 ml/min; Globulin 3.7 g/dL (2.2-4.2); Glucose 89 mg/dL (74-106); Magnesium 2.1 mg/dL (1.6-2.6); Potassium 3.6 mmol/L (3.5-5.1); Protein, Total 5.6 g/dL (6.4-8.2); Sodium Level 135 mmol/L (136-145)
[2019-12-08 07:49] LABS: International Normalized Ratio 1.1; Partial Thromboplast Time 32.6 Seconds (24.1-36.2); Prothrombin Time (Protime)PT. 13.3 SECONDS (11.7-14.9)
[2019-12-08] MEDS: 0.9% Normal Saline 1,000 ML 60 ML IV ×2 (08:17→11:53)
--- NOTE | 2019-12-08 09:06 | PCA ---
pt off floor
--- NOTE | 2019-12-08 10:50 | OP.CCLET_ITS ---
12/08/2019 oDe Mcrae Re : ERCP procedure for Tj Tobin Dear Thor This procedure was performed on Sunday, December 08, 2019. My impressions and recommendations are as follows: Impressions : - Gastritis with hemorrhage. - Malignant duodenal mass. Recommendations : - Transfer patient to another hospital. My findings are described in the full procedure note, which is enclosed. If I can be of further assistance, please feel free to contact me at Doctor phone number(s): , Work: . Sincerely, Kurtis Anderson MD 12/08/2019 10:49:31 AM This report has been signed electronically.
--- NOTE | 2019-12-08 10:50 | OP.ERCP_ITS ---
Patient Name: Tj Tobin Procedure Date: 12/08/2019 10:06 AM Date of : 1965 Age: 54 Procedure: ERCP Indications: Jaundice, Elevated liver enzymes Providers: Kurtis Anderson MD Referring MD: Kurtis Anderson MD Medicines: General Anesthesia Patient Profile: Patient has history of duodenal adenocarcinoma Complications: No immediate complications. Procedure: Pre-Anesthesia Assessment: - Prior to the procedure, a History and Physical was performed, and patient medications and allergies were reviewed. The patient's tolerance of previous anesthesia was also reviewed. The risks and benefits of the procedure and the sedation options and risks were discussed with the patient. All questions were answered, and informed consent was obtained. Prior Anticoagulants: The patient has taken no previous anticoagulant or antiplatelet agents. After reviewing the risks and benefits, the patient was deemed in satisfactory condition to undergo the procedure. After obtaining informed consent, the scope was passed under direct vision. Throughout the procedure, the patient's blood pressure, pulse, and oxygen saturations were monitored continuously. The duodenoscope was introduced through the mouth, with the intention of advancing to the bile ducts. The scope was advanced to the duodenum before the procedure was aborted. Medications were not given. Scope In: 10:25:36 AM Scope Out: 10:40:17 AM Total Procedure Duration Time 0 hours 14 minutes 41 seconds Findings: A standard esophagogastroduodenoscopy scope was used for the examination of the upper gastrointestinal tract. The scope was passed under direct vision through the upper GI tract. Diffuse severe inflammation with hemorrhage characterized by adherent blood was found in the stomach. The scope was passed under direct vision through the upper GI tract. A large mass with bleeding was found in the second portion of the duodenum. The ampulla was unable to be identified. There was a small amount of bile in the duodenum but its source was unable to be located. The distal duodenum was very friable due to radiation. Procedure was aborted and pt will be transferred to tertiary care center for percutaneous drainage and possible rendezvous stent placement. Impression: - Gastritis with hemorrhage. - Malignant duodenal mass. Recommendation: - Transfer patient to another hospital. Procedure Code(s): --- Professional --- 69698, Esophagogastroduodenoscopy, flexible, transoral; diagnostic, including collection of specimen(s) by brushing or washing, when performed (separate procedure) Diagnosis Code(s): --- Professional --- K29.71, Gastritis, unspecified, with bleeding C17.0, Malignant neoplasm of duodenum R17, Unspecified jaundice R74.8, Abnormal levels of other serum enzymes CPT copyright 2017 [employer]. All rights reserved. The codes documented in this report are preliminary and upon natural developer review may be revised to meet current compliance requirements. Kurtis Anderson MD 12/08/2019 10:49:31 AM This report has been signed electronically. Number of Addenda: 0 Note Initiated On: 12/08/2019 10:06 AM
[2019-12-08] MEDS: Calcium Carbonate 500 MG Tablet PO (18:55)
[2019-12-08] MEDS: Pantoprazole Sodium 40 MG Tablet PO (18:55)
== END 2019-12-08 20:50 | disposition short-term general hospital (02) ==
PROVIDERS: Anesthesiology; Admitting Provider Surgery; PCP Nurse Practitioner Family; Referring Provider Surgery; Visit Provider Surgery
PROC: (CPT 43260; principal; 2019-12-08 09:10)
DX: K83.1 Obstruction of bile duct (principal); R74.8 Abnormal levels of other serum enzymes; C17.0 Malignant neoplasm of duodenum; Z79.899 Other long term (current) drug therapy; F17.200 Nicotine dependence, unspecified, uncomplicated; K29.71 Gastritis, unspecified, with bleeding; K44.9 Diaphragmatic hernia without obstruction or gangrene
CPT/HCPCS: 43260; 36415; 74181; 80048; 80053; 80076; 83735; 84100; 85025; 85610; 85730; 87635; 93005; 94799; 96365; 96366; 96375; 96376; 99218; J7030; J7050; A4216; G0378; G0379; J2405; U0003

== ENCOUNTER 2020-01-29 15:03 | Inpatient (IN) | payer OTHER, SELFPAY ==
[2019-07-11 14:16] VITALS: BMI 29.7
[2020-01-18 09:01] VITALS: BMI 21.9
[2020-01-29 15:04] VITALS: BP 88/60; PULSE 127; RESP 18; TEMP 36.1; O2SAT 100; BMI 21.9
--- NOTE | 2020-01-29 15:23 | EKG12_ITS ---
Test Reason : LOWER EXTREMITY Blood Pressure : / mmHG Vent. Rate : 110 BPM Atrial Rate : 110 BPM P-R Int : 124 ms QRS Dur : 076 ms QT Int : 350 ms P-R-T Axes : 053 049 041 degrees QTc Int : 473 ms Sinus tachycardia Otherwise normal ECG Confirmed by APRIL CARRERA MD ([id number]), department editor MURPHY MCCLENDON ([id number]) on 01/30/2020 1:29:09 PM Referred By: ESTRELLITA Confirmed By:APRIL CARRERA MD
--- NOTE | 2020-01-29 15:24 | VDLE_ITS ---
Reason For Study: Pain LLE RIGHT LEFT CFV is compressible, spontaneous, phasic, GSV is normal. competent and demonstrates normal Lt CFV, Lt FV, Lt PopV, Lt T/P Trunk, Lt augmentation. GastrocV, Lt PTV, Lt PeroV, and Lt SoleusV Procedure are dilated and non compressible consistent Exam performed portable in ED. with acute DVT. A preliminary report was called and/or faxed to Dr. Linda. Interpretation Summary Acute deep venous thrombosis left common femoral, femoral, popliteal, tibioperoeal trunk, gastrocnemius, posterior tibial, peroneal, and soleus veins Patent, compressible left great saphenous vein Normal flow patterns right common femoral vein Ordering Physician: Watson Linda Referring Physician: Doe Mcrae Performed By: Briseyda Rhodes, PACO, RVT
--- NOTE | 2020-01-29 15:25 | ED.DCSUM_ITS ---
- ER Visit Summary Date of Service: 01/29/20 Chief Complaint: Left calf pain History of Present Illness: The patient is a [address] Alvarado and Kurt Isbell. He has a history of duodenal cancer with metastases. He is currently on oral chemotherapy and took a dose today. He is unsure what this is. He does have a history of DVT/PE. He is not anticoagulated at this time. Patient reports that he has left calf pain that began today. It is 10 out of 10 at worst and 7 out of 10 currently. He describes it as sharp. Is worsened by walking. Is relieved by rest. He is taken his morphine and oxycodone without relief. States this is similar to when he had a DVT in the past. He denies any chest pain or shortness of breath. He denies any palpitations. No fever or chills. He reports he has chronic abdominal pain that is unchanged. Physical Examination: Vitals: 97.0, 88/60, 127, 18, 100% on room air which is not hypoxic. General: Well-nourished and well-developed. Head: Normocephalic atraumatic. Neck: Supple, no lymphadenopathy. No JVD. Nontender. Cardiovascular: Tachycardic regular rhythm. No murmurs. Respiratory: No respiratory distress. Clear to auscultation bilaterally. Abdominal: Soft, nontender, nondistended, normal bowel sounds. No guarding, rebound, or peritoneal signs. His external biliary drain in the right upper quadrant is clean, dry, intact. There is no erythema. There is no tenderness to palpation. Back: Nontender. Extremities: 1+ pitting edema of his left foot. Moderate tenderness palpation to his left calf. He does have 2+ dorsalis pedis pulse on the left. Skin: Normal color, no rash. Neurologic: Alert and oriented ?3. Cranial nerves II through XII are intact. Normal strength and sensation. Psych: Normal affect. Test Results: EKG is sinus tach at [address] changes. Left lower extremity Doppler shows a DVT that extends from his foot all the way up to his groin. Chem-7 shows a sodium of 134, calcium of 8.1, glucose 136, creatinine 0.56. LFTs show an albumin of 3.3 and globulin of 4.3, ALT of 15 and AST of 12. Lactic acid is 1.5. CBC shows a white count of 11.6 with 83 segmented neutrophils, 5 lymphocytes, and 11 monocytes. H&H is 10.1 and 30.5. INR is 1.4. PTT is 38.0. Clinical Impression(s) from Imaging Studies Chest CTA 01/29/20 15:50 IMPRESSION: Positive for pulmonary embolism of the distal main right pulmonary artery extending into the descending and ascending pulmonary arteries. Electronically Signed: Doe Barragan MD at 17:35 EDT Tel , Service support , Emergency Department Course and Treatment: Patient had an IV placed. He was given a liter normal saline. He was given Dilaudid and Zofran IV. He is resting more comfortably. Patient was discussed with Dr. Alvarado and was started on heparin with a bolus. Treatment Plan: The patient's PE severity index is 143. He will be admitted to the hospital for further evaluation and treatment. Disposition: Admitted in improved condition. Impression: 1. Pulmonary embolus. 2. Left lower extremity DVT. 3. Duodenal cancer with metastases. This note was generated with [employer] dictation software. It may contain incorrect words, spelling, and punctuation that were not noted in review of the chart prior to signing ED Disposition - Plan for ED Patient: Referrals: Doe Mcrae CONTINUOUS IMPROVEMENT LEAD, CONTINUOUS IMPROVEMENT LEAD-C [Primary Care Provider] -
--- NOTE | 2020-01-29 15:50 | CT_ITS ---
STUDY: CTA CHEST REASON FOR EXAM: Male, 54 years old. LEFT LEG SWELLING. H/O BLOOD CLOTS. DUODENAL CANCER WITH CHEMO AND RADIATION/STENT RADIATION DOSAGE (If Supplied By Facility): CTDIvol = ( 4.44 ) mGy, DLP = ( 180.55 ) mGycm TECHNIQUE: The examination was performed with the intravenous administration of IV 75mL Isovue-370. Post-processing of the angiographic images was performed, with multiplanar reformation and 3D reconstruction. Individualized dose optimization techniques were used for this CT. COMPARISON: None. FINDINGS: Right internal jugular chest port. Normal enhancement of the main pulmonary artery and right and left pulmonary arteries. Normal enhancement of the bilateral peripheral pulmonary arteries. Tubular branching defect within the distal main right pulmonary artery extending into the descending and ascending pulmonary arteries consistent with pulmonary embolism. Normal thoracic aorta and visualized great vessels. There is no demonstrated aortic dissection. Normal heart and pericardium. Normal mediastinum. Normal hilar regions. Normal visualized trachea and bronchi. The lungs are well expanded. Normal pulmonary parenchyma. Normal pleura. Normal chest wall structures. Normal osseous structures. Pneumobilia likely related to prior sphincterotomy. Small amount of ascites. CT/CTA Chest W/WO Contrast IMPRESSION: Positive for pulmonary embolism of the distal main right pulmonary artery extending into the descending and ascending pulmonary arteries. Electronically Signed: Doe Barragan MD at 17:35 EDT Tel , Service support ,
[2020-01-29] MEDS: HYDROmorphone 1 MG/ML Syringe IV (16:05)
[2020-01-29] MEDS: 0.9% Normal Saline 1,000 ML 999 ML IV (16:05)
[2020-01-29] MEDS: Ondansetron 4 MG/2 ML Vial IV (16:05)
[2020-01-29 16:47] LABS: ALB/GLOB Ratio 0.5 RATIO (0.9-2.4); AST(SGOT) 12 U/L (15-37); Alanine Aminotransfer ALT/SGPT 15 U/L (16-61); Albumin, Serum 2.3 g/dL (3.2-5.0); Alkaline Phosphatase 98 U/L (45-117); Anion Gap 7 (5-15); BUN 9 mg/dL (7-18); BUN/Creat Ratio 15.9 RATIO (10-20); Calcium,Total 8.1 mg/dL (8.5-10.1); Chloride 101 mmol/L (98-107); Creatinine, Serum 0.56 mg/dL (0.70-1.30); EST Glomerular Filtration Rate 160 mL/min (>60); Est Glom Filt Rate - Afr Amer 194 mL/min (>60); Estimated Creatinine Clearance 137.02 ml/min; Globulin 4.3 g/dL (2.2-4.2); Glucose 136 mg/dL (74-106); Magnesium 1.9 mg/dL (1.6-2.6); Phosphorus 2.7 mg/dL (2.5-4.9); Potassium 3.9 mmol/L (3.5-5.1); Protein, Total 6.6 g/dL (6.4-8.2); Sodium Level 134 mmol/L (136-145)
[2020-01-29 16:52] LABS: Absolute Lymphocyte Count 0.63 X10^3/uL (0.83-4.51); Absolute Neutrophil Count 9.6 X10^3/uL (2.0-7.7); Basophil# 0.03 X10^3/uL; Basophil% 0.3 % (0-1); Eosinophil# 0.05 X10^3/uL; Eosinophils% 0.4 % (0-5); Hematocrit 30.5 % (40-54); Hemoglobin 10.1 g/dL (13.0-16.5); Lymphocyte # 0.63 X10^3/ul (4.0); Lymphocyte % 5.4 % (19-41); Mean Corp Hgb Conc 33.1 g/dL (32-36); Mean Corpuscular Hgb 27.5 pg (27.0-32.0); Mean Corpuscular Volume 83.1 fL (80-94); Monocyte# 1.24 X10^3/uL; Monocyte% 10.7 % (0-10); NRBC Flagged by Analyzer 0 % (0-5); Neutrophil # 9.56 X10^3/uL (2.7-7.7); Neutrophil % 82.6 % (47-70); Platelet Count 185 K/mm3 (150-450); RBC Distribution Width CV 15.3 % (11.6-14.6); RBC Distribution Width SD 46.5 fl (35.1-43.9); Red Blood Count 3.67 M/mm3 (4.6-6.2); White Blood Count 11.6 K/mm3 (4.4-11.0)
[2020-01-29 16:55] LABS: Lactic Acid 1.5 mmol/L (0.4-1.9)
[2020-01-29 16:56] LABS: International Normalized Ratio 1.4
[2020-01-29 17:35] VITALS: BP 103/67; PULSE 95; RESP 16; O2SAT 99
--- NOTE | 2020-01-29 17:48 | HP.PCM_ITS ---
History of Present Illness Date of Admission: 01/29/20 Chief Complaint: left calf pain The patient is a 54 year old M with a past medical history as outlined which includes duodenal cancer with metastasis currently on chemotherapy. He was admitted through the ED on 01/29/2020 with a complaint of left calf pain which started on the day of admission and rated at 10 out of 10. He described it as sharp and aggravated by walking and relieved by rest. His oral pain medication did not help with his pain. He stated was similar to how he felt when he had a DVT in the past. He had no associated chest pain or shortness of breath, denied any palpitation, dizziness, nausea vomiting or diarrhea. Review of consult otherwise negative. In the ED, vitals showed temperature of 97 Fahrenheit with blood pressure of 103/67, pulse rate of 95 respiratory of 16. Pulse ox was 99% on room air. Chemistry essentially unremarkable. CBC showed hemoglobin of 10.1 with WBC of 11.6 and platelets of 185. Initial troponin was not done. CTA of the chest was positive for PE in the distal main right pulmonary arteries ext ending into the descending and ascending pulmonary arteries. EKG showed sinus tachycardia with heart rate of [address] changes. Duplex of the lower extremity showed DVT that extended from his foot all the way to the groin. He has been admitted and managed for DVT of the left lower extremity as well as PE. [] Past Medical History Past Medical History (Chronic Problems): Chronic Problems Duodenal adenocarcinoma (Chronic) Intractable hiccups (Chronic) Neutropenia, drug-induced (Chronic) Tinea versicolor (Chronic) Tobacco use (Chronic) Medical History: Medical History (Last Reviewed 01/18/20 @ 08:31 by Raissa Mariee) Adenocarcinoma of duodenum C17.0 H/O angiography Z92.89 visceral, 08/27/18 Liver lesion K76.9 Pancreatitis, chronic K86.1 Allergies No Known Allergies Allergy (Verified 01/29/20 15:04) Home Medications: Ambulatory Orders Medication Instructions Recorded Morphine Sulfate 15 mg PO TID 10/19/19 Oxycodone [Oxyir] 5 mg PO Q8H PRN 10/19/19 Dexamethasone [Decadron] 2 mg PO DAILY@0800 30 Days #30 tab 12/25/19 Ondansetron [Ondansetron Odt] 4 mg PO TID PRN PRN 10 Days #30 12/25/19 tab.rapdis Calcium Carbonate [Tums] 1,000 mg PO Q4H PRN PRN 01/29/20 Surgical History: Surgical History (Last Reviewed 01/18/20 @ 08:31 by Raissa Mariee) History of cholecystectomy Z90.49 2019 [facility] History of esophagogastroduodenoscopy (EGD) Z98.890 With US 09/29/18 With US 08/27/18 History of liver biopsy Z98.890 Surgical History: - - Port placement, attempted [facility] Psychiatric History: No pertinent psych hx Smoking Status: Current every day smoker Drugs: None - *Family History Maternal Family History: Family History (Last Reviewed 01/18/20 @ 08:31 by Raissa Mariee) Uncle Lung cancer Sister CVA (cerebral vascular accident) Mother Hypertension Kidney disease Grandmother Diabetes Grandfather Diabetes Review of Systems Constitutional: Denies: Chills, Fever, Weight Change HEENT: Denies: Head Aches, Sinus Congestion, Sinus Drainage Cardiovascular: Denies: Chest Pain, Chest Tightness, Edema, Heaviness, Light Headedness, Orthopnea, Palpitations, Paroxysmal Noc. Dyspnea, Syncope Respiratory: Denies: Cough, Shortness of Breath, Shortness of breath at rest, Shortness of breath upon exertion, Sputum production Gastrointestinal: Denies: Abdominal Pain, Nausea, Vomiting Genitourinary: Denies: Dysuria Musculoskeletal: Reports: Leg Pain, Muscle pain. Denies: Joint Pain, Joint Tenderness Skin: Denies: Rash, Wounds Neurological: Denies: Numbness, Tingling, Focal weakness Psychiatric: Denies: Anxiety, Depression, Homicidal Ideations, Suicidal Ideations Hematologic/ Lymphatic: Denies: Easy Bruising, Easy Bleeding VTE Information - Inpt Only VTE Present on Admission: Yes - Physical Exam Vitals/I&O's: Vital Signs Temp Pulse Resp BP Pulse Ox 97 F L 95 16 103/67 99 01/29/20 15:04 01/29/20 17:35 01/29/20 17:35 01/29/20 17:35 01/29/20 17:35 Oxygen Delivery Method Room Air Weight: 140 lb Body Mass Index (BMI) 21.9 General: Alert, Oriented x3, Cooperative, No apparent distress HEENT: Atraumatic, PERRLA, EOMI, Normocephalic Oral: Moist Mucosa Neck: Supple, No JVD, Negative Carotid Bruits Lungs: Clear to auscultation, Normal air movement, No rhonchi, No wheeze, No rales Cardiovascular: Regular rate, Regular Rhythm, Normal S1, Normal S2, No murmurs Abdomen: Bowel Sounds Present, Soft, Non Tender, Non-Distended, No Hepato- splenomegaly Extremities: No clubbing, No cyanosis, No edema, Capillary Refill Less than 3 Seconds Skin: No rashes, No breakdown, - - left chest port Musculoskeletal: No Tenderness to Palpation of Joints or Extremities Lymphatic: No Cervical, Supraclavicular, or Inguinal Adenopathy Neurological: Cranial nerves II-XII grossly intact, Neuro grossly intact, Motor Exam 5/5 strength throughout Psych/Mental Status: Normal Affect, Appropriate, Alert and oriented to time, place, person, mood and affect Laboratory Results 01/29/20 16:10: PT 17.0 H, INR 1.4, APTT 38.0 H 01/29/20 16:13: WBC 11.6 H, RBC 3.67 L, Hgb 10.1 L, Hct 30.5 L, MCV 83.1, MCH 27.5, MCHC 33.1, RDW Std Deviation 46.5 H, RDW Coeff of Rc 15.3 H, Plt Count 185, MPV 9.0, Immature Gran % (Auto) 0.600, Neut % (Auto) 82.6 H, Lymph % (Auto) 5.4 L, Dickey % (Auto) 10.7 H, Eos % (Auto) 0.4, Baso % (Auto) 0.3, Absolute Neuts (auto) 9.6 H, Absolute Lymphs (auto) 0.63 L, Nucleated RBC % 0 01/29/20 16:13: Sodium 134 L, Potassium 3.9, Chloride 101, Carbon Dioxide 26.0, Anion Gap 7, BUN 9, Creatinine 0.56 L, Estim Creat Clear Calc 137.02, Est GFR (MDRD) Af Amer 194, Est GFR (MDRD) Non-Af 160, BUN/Creatinine Ratio 15.9, Glucose 136 H, Calcium 8.1 L, Phosphorus 2.7, Magnesium 1.9, Total Bilirubin 0.90, AST 12 L, ALT 15 L, Alkaline Phosphatase 98, Total Protein 6.6, Albumin 2.3 L, Globulin 4.3 H, Albumin/Globulin Ratio 0.5 L 01/29/20 16:13: Lactic Acid 1.5 01/29/20 16:13: APTT Cancelled Diagnostic Data Chest CTA 01/29/20 15:50 IMPRESSION: Positive for pulmonary embolism of the distal main right pulmonary artery extending into the descending and ascending pulmonary arteries. Electronically Signed: Doe Barragan MD at 17:35 EDT Tel , Service support , Current Medications Heparin Sodium (Porcine) (Heparin Na) 0 unit IV UD PRN; Protocol PRN Reason: DOSAGE ADJUSTMENT NOMOGRAM Heparin Sodium/Sodium Chloride () 25,000 unit in 250 mls @ 10 mls/hr IV .Q25H KULWANT; Protocol Assessment/Plan All Active Problems (Last Reviewed 01/18/20 @ 08:31 by Raissa Mariee) Encounter for education (Acute) Encounter for adjustment or management of vascular access device (Acute) Chemotherapy management, encounter for (Acute) Toothache (Acute) Pulmonary embolism (Acute) Radiation gastritis (Acute) Abdominal pain (Acute) Obstructive jaundice (Acute) 54-year-old admitted with a complaint of left calf pain. #DVT and PE * likely due to duodenal cancer with metastasis. * Mid to PCU with telemetry * Check troponins. * Started on heparin drip after ED doctor spoke to his oncologist Dr. Reid. Will continue heparin drip. Plan per ED doctor who discussed with his oncologist this is switched to subcu Lovenox. * Get 2D echo. * Titrate oxygen as needed to maintain saturation above 90%. * #History of duodenal cancer with metastasis * On chemotherapy via his port. To follow-up with oncologist on outpatient basis. * Also on dexamethasone and morphine as well as oxycodone. * Prophylaxis: Not needed as patient is being treated for acute DVT and PE CODE STATUS: DNRCCA * Patient counseled extensively about different types of CODE STATUS including full code, DNR CCA and DNR CCA. * Patient elects to be DNRCCA. * Total [id number] time 16 minutes. # Inpatient E&M: 58297 Init Hosp L3 Procedures: 30171 Advncd Care Plan 30 Min
[2020-01-29] MEDS: Heparin Injection (Vial) 5,000 UNIT/ML VIAL 4500 UNIT IV (17:51)
--- NOTE | 2020-01-29 18:02 | ED.RN ---
HEPARIN BOLUS AND INFUSION VERIFIED BY JOVANA SERRATO.
[2020-01-29 18:11] LABS: Bacteria 0 SEEN /hpf (None Seen); Mucous, Urine 0 SEEN /hpf (<or=2+); Red Blood Cells-Urine 0 SEEN /hpf (0-5); Squamous Epithelial Cells - UA 0 SEEN /hpf (0-5)
[2020-01-29 18:19] LABS: Color, Urine Yellow (Yellow); Glucose, Dipstick Normal (Normal); Ketone-Dipstick Negative (Negative); Leukocyte Esterase-Dipstick 25 /ul (Negative); Nitrite-Dipstick Negative (Negative); Occult Blood-Urine Negative /ul (Negative); Protein-Dipstick 30 mg/dl (Negative); Specific Gravity, Urine 1.005 (1.002-1.030); Urine Bilirubin Dipstick Negative (Negative); Urine Clarity Clear (Clear); Urine Urobilinogen Normal (Normal)
[2020-01-29 18:23] VITALS: BMI 22.0
[2020-01-29 18:24] VITALS: BMI 21.9
[2020-01-29 18:50] VITALS: BP 92/59; PULSE 97; RESP 16; TEMP 36.8; O2SAT 100
[2020-01-29 18:55] VITALS: PULSE 97
[2020-01-29 19:13] LABS: White Blood Cells 0-5 SEEN /hpf (0-5)
[2020-01-29 19:18] LABS: BNP,B-Type NATRIURETIC PEPTIDE 17.2 pg/mL (0-100)
[2020-01-29 19:44] VITALS: PULSE 100
[2020-01-29] MEDS: morphine SR 15 MG Tablet PO (22:38)
[2020-01-29 22:40] VITALS: BP 92/50; PULSE 97; RESP 16; TEMP 36.6; O2SAT 97
[2020-01-29] MEDS: Calcium Carbonate 500 MG Tablet 1000 MG PO (22:45)
[2020-01-29 22:55] LABS: Partial Thromboplast Time 90.4 Seconds (24.1-36.2)
[2020-01-30] VITALS (11 sets, daily range): BP systolic 88–98; BP diastolic 54–64; PULSE 69–99; RESP 16–18; TEMP 36.4–37.2; O2SAT 97–100
[2020-01-30 05:24] LABS: Absolute Lymphocyte Count 0.85 X10^3/uL (0.83-4.51); Absolute Neutrophil Count 6.6 X10^3/uL (2.0-7.7); Basophil# 0.03 X10^3/uL; Basophil% 0.3 % (0-1); Eosinophil# 0.14 X10^3/uL; Eosinophils% 1.6 % (0-5); Hemoglobin 9.2 g/dL (13.0-16.5); Lymphocyte # 0.85 X10^3/ul (4.0); Lymphocyte % 9.8 % (19-41); Mean Corp Hgb Conc 32.9 g/dL (32-36); Mean Corpuscular Hgb 27.2 pg (27.0-32.0); Mean Corpuscular Volume 82.8 fL (80-94); Mean Platelet Vol. 8.9 fl (6.2-12.0); Monocyte# 1.01 X10^3/uL; Monocyte% 11.7 % (0-10); NRBC Flagged by Analyzer 0 % (0-5); Neutrophil # 6.56 X10^3/uL (2.7-7.7); Neutrophil % 75.9 % (47-70); Platelet Count 154 K/mm3 (150-450); RBC Distribution Width CV 15.3 % (11.6-14.6); RBC Distribution Width SD 46.5 fl (35.1-43.9); Red Blood Count 3.38 M/mm3 (4.6-6.2); White Blood Count 8.7 K/mm3 (4.4-11.0)
[2020-01-30 05:34] LABS: Partial Thromboplast Time 69.5 Seconds (24.1-36.2)
[2020-01-30 05:47] LABS: Anion Gap 7 (5-15); BUN 9 mg/dL (7-18); BUN/Creat Ratio 16.6 RATIO (10-20); Calcium,Total 7.7 mg/dL (8.5-10.1); Chloride 101 mmol/L (98-107); Creatinine, Serum 0.54 mg/dL (0.70-1.30); EST Glomerular Filtration Rate 168 mL/min (>60); Est Glom Filt Rate - Afr Amer 203 mL/min (>60); Estimated Creatinine Clearance 142.31 ml/min; Glucose 116 mg/dL (74-106); Potassium 3.6 mmol/L (3.5-5.1); Sodium Level 132 mmol/L (136-145)
--- NOTE | 2020-01-30 05:55 | ECHOD_ITS ---
Reason For Study: PE Procedure This was a 2D Doppler, Color Flow transthoracic echocardiogram. The study was technically difficult. Exam performed portable in patient room. Left Ventricle Normal LV size. Segmental dysfunction with preserved ejection fraction (see wall motion). The estimated ejection fraction is 55 %. Transmitral doppler flow suggestive of impaired relaxation of left ventricle. Mid-inferoseptal : Hypokinetic. Mid-anteroseptal : Hypokinetic. Right Ventricle Normal RV size. Normal systolic function. Atria Normal left atrium. Normal right atrium. No doppler evidence for ASD. Bubble contrast study negative for right to left interatrial shunt. Mitral Valve There is no mitral annular calcification. Normal mitral valve. Trivial mitral valve insufficiency. Tricuspid Valve Normal tricuspid valve. Trivial tricuspid valve insufficiency. Unable to estimate RV systolic pressure/pulmonary artery pressure due to technically difficult study. Aortic Valve Trisinus/trileaflet aortic valve. Mild focal aortic valve calcification. Pulmonic Valve The pulmonic valve is not well visualized. Great Vessels Normal sized aortic root. Pericardium/Pleural No pericardial effusion. Medication Performed a rapid injection of agitated mix of 9 cc saline and 1cc air to assess for atrial septal defect. MMode/2D Measurements & Calculations LVIDd: 4.4 cm IVSd: 0.75 cm Ao root diam: 3.5 cm LVIDs: 3.1 cm LVPWd: 0.92 cm RVDd: 3.6 cm FS: 29.9 % LAV(MOD-bp): 32.8 ml LVAd ap4: 29.6 cm2 SV(MOD-sp4): 45.0 ml LAV(MOD-bp) Indexed: 18.8 ml/m2 EDV(MOD-sp4): 87.7 ml LAV(MOD-sp2): 32.2 ml EDV(sp4-el): 89.5 ml LAV(MOD-sp4): 30.2 ml LVAs ap4: 18.8 cm2 ESV(MOD-sp4): 42.8 ml ESV(sp4-el): 42.5 ml EF(MOD-sp4): 51.2 % EF(sp4-el): 52.5 % SV(sp4-el): 47.0 ml LA A4 area: 14.1 cm2 LA dimension(2D): 2.9 cm RA A4 area: 15.5 cm2 Doppler Measurements & Calculations MV E max patrice: 44.6 cm/sec Lat Peak E' Patrice: 14.7 cm/sec Med Peak E' Patrice: 7.6 cm/sec MV A max patrice: 59.3 cm/sec E/E' lat: 3.0 E/E' med: 5.8 MV E/A: 0.75 Ao V2 max: 145.5 cm/sec LV V1 max: 112.5 cm/sec Ao max P.5 mmHg LV V1 max P.1 mmHg Interpretation Summary The study was technically difficult. Segmental dysfunction with preserved ejection fraction (see wall motion). The estimated ejection fraction is 55 %. Trivial mitral valve insufficiency. Trivial tricuspid valve insufficiency. Mild focal aortic valve calcification. Unable to estimate RV systolic pressure/pulmonary artery pressure due to technically difficult study. Transmitral doppler flow suggestive of impaired relaxation of left ventricle Bubble contrast study negative for right to left interatrial shunt. Ordering Physician: Viv Rich Referring Physician: Doe Mcrae Performed By: Calli Ness RDCS
[2020-01-30] MEDS: morphine SR 15 MG Tablet PO ×3 (05:59→21:22)
[2020-01-30] MEDS: dexAMETHasone 4 MG Tablet 2 MG PO (07:59)
[2020-01-30] MEDS: 0.9% Saline Lock 10 ML Syringe IV (07:59)
[2020-01-30] MEDS: oxyCODONE 5 MG Tablet PO ×2 (08:01→17:53)
[2020-01-30] MEDS: Enoxaparin 60 MG/0.6 ML Syringe SC ×2 (10:04→21:23)
--- NOTE | 2020-01-30 11:15 | CASEMGMT ---
JOVANA VALENCIA assessment: Face to Face with patient for initial transition planning/care coordination assessment. JOVANA VALENCIA introduced self and role at [facility], pt voices understanding and consents to assessment at this time. Pt is sitting up in bed in no distress at this time. Pt is A/Ox4 at this time and answers all questions appropriately at this time. Care providers, pharmacy, and demographics verified at this time. Presentation: Left leg swelling/pain that started this am, hx of blood clots Admitting dx: PE, DVT PCP: Doe Mcrae [employer] INSTRUMENT MECH[employer] Specialists: Prah, onc Preferred [facility]acy[facility]pt to be sent home on Lovenox at discharge. Pt states has been on this in the past while on his [employer] insurance and states no concerns with cost at this time. Pt also states no concerns with giving injections at this time. Insurance: [employer] Prescription Benefit: [employer] Living Will/HPOA: Pt states has a LW/HPOA and is aware that they are not on file at [facility] at this time. Pt states his HPOA is his , Chrystal Tobin. LNOK: Chrystal Tobni, ; Kierra Christianson, daughter Living Arrangements: Pt states lives with on main level of home and states no concerns at home at this time. Pt states is independent with ADL's. Transportation: Pt states drives and states no transportation concerns at this time. DME/HHC: Pt states has a cane and states no need for any further DME at this time. Pt states no hx of HHC or SNF in the past. Pt states no concerns with going home at time of discharge. Pt states is currently on NING from job d/t cancer treatment. Pt states smokes 1/2pk/day of cigarettes and does not drink ETOH. Pt states no further concerns/needs at this time. CM to follow for home oxygen testing and any further discharge planning/needs. Advised pt to ask for CM if any further questions/concerns/needs arise, voices understanding. Pt Goal: Home Plan: [place] JOVANA VALENCIA
--- NOTE | 2020-01-30 11:34 | PN_ITS ---
<Darius Goel - Last Filed: 01/30/20 11:34> Reason for Visit: PE DVT Subjective: Pt with previous hx of lovenox use for blood clots at home and he feels he will be able to continue doing this at home. No SOB at rest. Pt has not ambulated yet. He c/o fatigue and weakness. No CP. No LH / dizziness. No fever/chills, na usea, vomiting, or diarrhea. Vitals/I&O's: Vital Signs Temp Pulse Resp BP Pulse Ox 98.1 F 92 18 93/58 L 97 01/30/20 09:24 01/30/20 09:24 01/30/20 09:24 01/30/20 09:24 01/30/20 09:24 Oxygen Delivery Method Room Air Weight: 140 lb 3.424 oz Body Mass Index (BMI) 21.9 Intake and Output for Last 24 Hours 01/28/20 01/29/20 01/30/20 23:59 23:59 23:59 Intake Total 1281 / 1281 319.9 / 319.9 Output Total 250 / 250 125 / 125 Balance 1031 / 1031 194.9 / 194.9 General: Alert, Oriented x3, Cooperative, - - frail HEENT: Atraumatic, PERRLA, EOMI, Normocephalic Neck: Supple, No JVD, Negative Carotid Bruits Lungs: Clear to auscultation, Normal air movement Cardiovascular: Regular rate, No murmurs Abdomen: Bowel Sounds Present, Soft, Non Tender Extremities: No edema, Capillary Refill Less than 3 Seconds Skin: No rashes, No breakdown Musculoskeletal: No Tenderness to Palpation of Joints or Extremities Neurological: Cranial nerves II-XII grossly intact Psych/Mental Status: Normal Affect, Appropriate, Alert and oriented to time, place, person, mood and affect Laboratory Results 01/29/20 16:10: PT 17.0 H, INR 1.4, APTT 38.0 H 01/29/20 16:13: WBC 11.6 H, RBC 3.67 L, Hgb 10.1 L, Hct 30.5 L, MCV 83.1, MCH 27.5, MCHC 33.1, RDW Std Deviation 46.5 H, RDW Coeff of Rc 15.3 H, Plt Count 185, MPV 9.0, Immature Gran % (Auto) 0.600, Neut % (Auto) 82.6 H, Lymph % (Auto) 5.4 L, [place] % (Auto) 10.7 H, Eos % (Auto) 0.4, Baso % (Auto) 0.3, Absolute Neuts (auto) 9.6 H, Absolute Lymphs (auto) 0.63 L, Nucleated RBC % 0 01/29/20 16:13: Sodium 134 L, Potassium 3.9, Chloride 101, Carbon Dioxide 26.0, Anion Gap 7, BUN 9, Creatinine 0.56 L, Estim Creat Clear Calc 137.02, Est GFR (MDRD) Af Amer 194, Est GFR (MDRD) Non-Af 160, BUN/Creatinine Ratio 15.9, Glucose 136 H, Calcium 8.1 L, Phosphorus 2.7, Magnesium 1.9, Total Bilirubin 0.90, AST 12 L, ALT 15 L, Alkaline Phosphatase 98, Total Protein 6.6, Albumin 2.3 L, Globulin 4.3 H, Albumin/Globulin Ratio 0.5 L 01/29/20 16:13: Lactic Acid 1.5 01/29/20 16:13: APTT Cancelled 01/29/20 16:13: B-Natriuretic Peptide 17.2 01/29/20 16:13: Troponin I < 0.015 01/29/20 17:55: Urine Color Yellow, Urine Clarity Clear, Urine pH 7.0, Ur Specific [place] 1.005, Urine Protein 30 H, Urine Glucose (UA) Normal, Urine Ketones Negative, Urine Occult Blood Negative, Urine Nitrite Negative, Urine Bilirubin Negative, Urine Urobilinogen Normal, Ur Leukocyte Esterase 25 H, Urine RBC 0 SEEN, Urine WBC 0-5 SEEN, Ur Squamous Epith Cells 0 SEEN, Urine Bacteria 0 SEEN, Urine Mucus 0 SEEN 01/29/20 19:27: Troponin I < 0.015 01/29/20 22:29: Troponin I < 0.015 01/29/20 22:29: APTT 90.4 H* 01/30/20 05:00: WBC 8.7, RBC 3.38 L, Hgb 9.2 L, Hct 28.0 L, MCV 82.8, MCH 27.2, MCHC 32.9, RDW Std Deviation 46.5 H, RDW Coeff of Rc 15.3 H, Plt Count 154, MPV 8.9, Immature Gran % (Auto) 0.700, Neut % (Auto) 75.9 H, Lymph % (Auto) 9.8 L, [place] % (Auto) 11.7 H, Eos % (Auto) 1.6, Baso % (Auto) 0.3, Absolute Neuts (auto) 6.6, Absolute Lymphs (auto) 0.85, Nucleated RBC % 0 01/30/20 05:00: Sodium 132 L, Potassium 3.6, Chloride 101, Carbon Dioxide 24.0, Anion Gap 7, BUN 9, Creatinine 0.54 L, Estim Creat Clear Calc 142.31, Est GFR (MDRD) Af Amer 203, Est GFR (MDRD) Non-Af 168, BUN/Creatinine Ratio 16.6, Glucose 116 H, Calcium 7.7 L 01/30/20 05:00: APTT 69.5 H 01/30/20 10:40: APTT 47.0 H Current Medications Calcium Carbonate (Tums) 1,000 mg PO Q4H PRN PRN PRN Reason: stomach Last Admin: 01/29/20 22:45 Dose: 1,000 mg Documented by: Dexamethasone (Decadron) 2 mg PO DAILY@0800 [facility] Last Admin: 01/30/20 07:59 Dose: 2 mg Documented by: Enoxaparin Sodium (Lovenox) 60 mg SC Q12 [facility] Last Admin: 01/30/20 10:04 Dose: 60 mg Documented by: Morphine Sulfate (Ms Contin) 15 mg PO TID [facility] Last Admin: 01/30/20 05:59 Dose: 15 mg Documented by: Ondansetron HCl (Zofran Odt) 4 mg PO TID PRN PRN PRN Reason: NAUSEA/VOMITING Ondansetron HCl (Zofran) 4 mg IV Q8H PRN PRN PRN Reason: NAUSEA/VOMITING Oxycodone HCl (Oxyir) 5 mg PO Q8H PRN PRN PRN Reason: Pain Score 1-10/10 Last Admin: 01/30/20 08:01 Dose: 5 mg Documented by: Sodium Chloride () 10 - 40 ml IV UD PRN PRN Reason: Port-a-Cath (VAD) Flush Last Admin: 01/30/20 07:59 Dose: 10 ml Documented by: Sodium Chloride (0.9% Nacl (Sterile) Posiflush) 10 - 40 ml IV UD PRN PRN Reason: Port access or dressing change STROKE Vital Signs/Narrative: Vital Signs Temp Pulse Resp BP Pulse Ox 01/30/20 09:24 98.1 F 92 18 93/58 L 97 01/30/20 07:35 98 Medical Necessity - Tobacco Use Smoking Status: Current every day smoker Tobacco Use: Cigarettes Assessment/Plan All Active Problems (Last Reviewed 01/18/20 @ 08:31 by Raissa Mariee) Encounter for education (Acute) Encounter for adjustment or management of vascular access device (Acute) Chemotherapy management, encounter for (Acute) Toothache (Acute) Pulmonary embolism (Acute) Radiation gastritis (Acute) Abdominal pain (Acute) Obstructive jaundice (Acute) 1. PE/DVT - probably due to malignancy - heparin to lovenox, f/u with oncology. Trop neg. Echo pending. BP borderline but pt states he runs low normally. Will need walking pulse ox. 2. 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 3. Hyponatremia - probably due to malignancy, will trend. DC planning: lovenox at home on discharge This patient was seen by Darius Goel PA-C under the supervision of Dr. Reed. <Abhi eRed - Last Filed: 01/30/20 15:46> Reason for Visit: Patient is being followed for right-sided pulmonary embolism and DVT Objective: Patient has history of pancreatitis and was found to have duodenal ulcer on EGD on 09/29/2018. It was 4 cm nonobstructing, nonbleeding duodenal ulcer which on biopsy came is poorly differentiated carcinoma with ulceration. Patient was also found to have 2 metastatic disease in the liver 1.5 x 1.[address] scan in October 2018 and had chemotherapy, FOLFOX and radiation. He has a right MediPort. Repeat EGD on March 14, 2019 showed dysplastic duodenum with edematous fold and biopsy showed no cancer cells. Patient developed obstructive jaundice and has percutaneous external biliary drainage at [facility] on 12/14/2019. He saw Dr. Cruz at [facility] and was started on ox [place] based chemotherapy. Currently patient is on radiation and Xeloda. He also follows Dr. Matthews for chronic abdominal and back pain Here, patient is admitted for pulmonary embolism in distal main right pulmonary artery extending to descending and ascending pulmonary arteries and left lower extremity from groin to foot DVT. On IV heparin drip changed to Lovenox subcutaneous therapeutic dose Physical exam General: Alert, Oriented x3, Cooperative, weak, mild protein calorie malnutrition, BMI 22, body weight 140 pounds. HEENT: Atraumatic, PERRLA, EOMI, Normocephalic Oral: No Gingival or Mucosal Lesions/ Ulcerations Neck: Supple, No JVD, Negative Carotid Bruits Lungs: Air entry diminished in bilateral lung bases. No crepitation/rhonchi. Right upper chest MediPort. Cardiovascular: Regular rate, Regular Rhythm, Normal S1, Normal S2, No murmurs Abdomen: Bowel Sounds Present, Soft, Non Tender, Non-Distended. Right upper quadrant external biliary drainage draining bile. : No renal angle tenderness. No suprapubic tenderness. Extremities: No edema, Capillary Refill Less than 3 Seconds. Mild muscle atrophy of upper and lower extremity. Left lower extremity is tender, swollen, and indurated due to DVT. Right lower extremity mild weakness with right foot drop. Skin: No rashes, No breakdown Musculoskeletal: No Tenderness to Palpation of Joints or Extremities Neurological: Cranial nerves II-XII grossly intact, Deep Tendon Reflexes 2+/4 and Symmetrical, Neuro grossly intact. No change in sensation. Mild right lower leg weakness. Left leg power was not evaluated due to pain Psych/Mental Status: Normal Affect, Appropriate. Vitals/I&O's: Vital Signs Temp Pulse Resp BP Pulse Ox 98.1 F 80 18 95/64 99 01/30/20 15:12 01/30/20 15:12 01/30/20 15:12 01/30/20 15:12 01/30/20 15:12 Oxygen Delivery Method Room Air Weight: 140 lb 3.424 oz Body Mass Index (BMI) 21.9 Intake and Output for Last 24 Hours 01/28/20 01/29/20 01/30/20 23:59 23:59 23:59 Intake Total 1281 / 1281 719.9 / 719.9 Output Total 250 / 250 125 / 125 Balance 1031 / 1031 594.9 / 594.9 Laboratory Results 01/29/20 16:10: PT 17.0 H, INR 1.4, APTT 38.0 H 01/29/20 16:13: WBC 11.6 H, RBC 3.67 L, Hgb 10.1 L, Hct 30.5 L, MCV 83.1, MCH 27.5, MCHC 33.1, RDW Std Deviation 46.5 H, RDW Coeff of Rc 15.3 H, Plt Count 185, MPV 9.0, Immature Gran % (Auto) 0.600, Neut % (Auto) 82.6 H, Lymph % (Auto) 5.4 L, [place] % (Auto) 10.7 H, Eos % (Auto) 0.4, Baso % (Auto) 0.3, Absolute Neuts (auto) 9.6 H, Absolute Lymphs (auto) 0.63 L, Nucleated RBC % 0 01/29/20 16:13: Sodium 134 L, Potassium 3.9, Chloride 101, Carbon Dioxide 26.0, Anion Gap 7, BUN 9, Creatinine 0.56 L, Estim Creat Clear Calc 137.02, Est GFR (MDRD) Af Amer 194, Est GFR (MDRD) Non-Af 160, BUN/Creatinine Ratio 15.9, Glucose 136 H, Calcium 8.1 L, Phosphorus 2.7, Magnesium 1.9, Total Bilirubin 0.90, AST 12 L, ALT 15 L, Alkaline Phosphatase 98, Total Protein 6.6, Albumin 2.3 L, Globulin 4.3 H, Albumin/Globulin Ratio 0.5 L 01/29/20 16:13: Lactic Acid 1.5 01/29/20 16:13: APTT Cancelled 01/29/20 16:13: B-Natriuretic Peptide 17.2 01/29/20 16:13: Troponin I < 0.015 01/29/20 17:55: Urine Color Yellow, Urine Clarity Clear, Urine pH 7.0, Ur Specific [place] 1.005, Urine Protein 30 H, Urine Glucose (UA) Normal, Urine Ketones Negative, Urine Occult Blood Negative, Urine Nitrite Negative, Urine Bilirubin Negative, Urine Urobilinogen Normal, Ur Leukocyte Esterase 25 H, Urine RBC 0 SEEN, Urine WBC 0-5 SEEN, Ur Squamous Epith Cells 0 SEEN, Urine Bacteria 0 SEEN, Urine Mucus 0 SEEN 01/29/20 19:27: Troponin I < 0.015 01/29/20 22:29: Troponin I < 0.015 01/29/20 22:29: APTT 90.4 H* 01/30/20 05:00: WBC 8.7, RBC 3.38 L, Hgb 9.2 L, Hct 28.0 L, MCV 82.8, MCH 27.2, MCHC 32.9, RDW Std Deviation 46.5 H, RDW Coeff of Rc 15.3 H, Plt Count 154, MPV 8.9, Immature Gran % (Auto) 0.700, Neut % (Auto) 75.9 H, Lymph % (Auto) 9.8 L, [place] % (Auto) 11.7 H, Eos % (Auto) 1.6, Baso % (Auto) 0.3, Absolute Neuts (auto) 6.6, Absolute Lymphs (auto) 0.85, Nucleated RBC % 0 01/30/20 05:00: Sodium 132 L, Potassium 3.6, Chloride 101, Carbon Dioxide 24.0, Anion Gap 7, BUN 9, Creatinine 0.54 L, Estim Creat Clear Calc 142.31, Est GFR (MDRD) Af Amer 203, Est GFR (MDRD) Non-Af 168, BUN/Creatinine Ratio 16.6, Glucose 116 H, Calcium 7.7 L 01/30/20 05:00: APTT 69.5 H 01/30/20 10:40: APTT 47.0 H Current Medications Calcium Carbonate (Tums) 1,000 mg PO Q4H PRN PRN PRN Reason: stomach Last Admin: 01/30/20 13:08 Dose: 1,000 mg Documented by: Dexamethasone (Decadron) 2 mg PO DAILY@0800 [facility] Last Admin: 01/30/20 07:59 Dose: 2 mg Documented by: Enoxaparin Sodium (Lovenox) 60 mg SC Q12 [facility] Last Admin: 01/30/20 10:04 Dose: 60 mg Documented by: Morphine Sulfate (Ms Contin) 15 mg PO TID [facility] Last Admin: 01/30/20 13:07 Dose: 15 mg Documented by: Ondansetron HCl (Zofran Odt) 4 mg PO TID PRN PRN PRN Reason: NAUSEA/VOMITING Ondansetron HCl (Zofran) 4 mg IV Q8H PRN PRN PRN Reason: NAUSEA/VOMITING Oxycodone HCl (Oxyir) 5 mg PO Q8H PRN PRN PRN Reason: Pain Score 1-10/10 Last Admin: 01/30/20 08:01 Dose: 5 mg Documented by: Sodium Chloride () 10 - 40 ml IV UD PRN PRN Reason: Port-a-Cath (VAD) Flush Last Admin: 01/30/20 07:59 Dose: 10 ml Documented by: Sodium Chloride (0.9% Nacl (Sterile) Posiflush) 10 - 40 ml IV UD PRN PRN Reason: Port access or dressing change STROKE Vital Signs/Narrative: Vital Signs Temp Pulse Resp BP Pulse Ox 01/30/20 15:12 98.1 F 80 18 95/64 99 Assessment/Plan This patient was seen in conjunction with Darius GOOD. I have independently interviewed and examined the patient and reviewed pertinent history, examination findings, laboratory and plan of management. I have reviewed the note and agree with the documented findings with the few additional points. In brief, patient is 53-year-old question intermittent with history of pancreatitis and duodenal poorly differentiated carcinoma with ulceration, currently on Xeloda and radiation, being managed by Dr. Alvarado. He is admitted for left lower extremity extensive DVT and right pulmonary main pulmonary artery and major primary division pulmonary embolism. Discussed with oncologist, Dr Alvarado. We agreed to continue Lovenox after discharge. Advised to hold Xeloda while patient is in the hospital. 2D echo was done and reported EF 55% with mild diastolic dysfunction. Normal RV systolic function and size. Troponin and BNP normal. As patient had mild right lower extremity about 1 to 2 weeks ago and right foot drop therefore MRI brain was done. Unenhanced MRI brain reported normal. 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 Patient is on radiation and Xeloda. I have discussed my assessment with Darius GOOD and orders have been reviewed. Total time of the visit including total time spent in counseling or coordination of care, (more than 50% of the total time, spent in obtaining medical informati on from nurses and other ancillary care providers), discussion with the oncologist, Dr. Alvarado, review of labs and imaging is 30 minutes. Clinical Impression(s) from Imaging Studies Chest CTA 01/29/20 15:50 IMPRESSION: Positive for pulmonary embolism of the distal main right pulmonary artery extending into the descending and ascending pulmonary arteries. Brain MRI 09/22/20 11:35 IMPRESSION: Normal unenhanced MRI of the brain. Electronically Signed: Doe Barragan MD at 13:41 EDT Tel , Service support , Inpatient E&M: [id number] Subs Hosp L3
--- NOTE | 2020-01-30 11:35 | MRI_ITS ---
STUDY: MRI BRAIN WITHOUT CONTRAST REASON FOR EXAM: Male, 54 years old. bilateral leg weakness TECHNIQUE: Standardized multiplanar fat and water weighted pulse sequences were obtained. COMPARISON: None. FINDINGS: Normal size of the ventricles and extra-axial spaces for the patient''s age. Normal white matter tracts of the supratentorial brain. There is no evidence for recent intracranial ischemia or other cause of cytotoxic edema on diffusion weighted imaging (DWI). Normal T2* images of the brain without demonstrated susceptibility artifact. There is no demonstrated hemosiderin stain. Normal bilateral basal ganglia. Normal thalami. There is no extra-axial fluid accumulation. Normal flow voids within the major intracranial circulation suggesting patency by spin echo criteria. Normal sella turcica, pituitary gland, infundibular stalk, optic chiasm and hypothalamus. Normal tectal plate and pineal gland. Normal midbrain, zane and medulla. Normal cerebellum. Normal basal cisterns. Normal bilateral temporal bones. Normal bilateral internal auditory canals. No demonstrated orbital abnormality, within the constraints of a routine brain study. Normal visualized paranasal sinuses. Normal calvarium and skull base. Normal visualized soft tissue structures. Normal visualized upper cervical spine. MRI/Brain without Contrast IMPRESSION: Normal unenhanced MRI of the brain. Electronically Signed: Doe Barragan MD at 13:41 EDT Tel , Service support ,
[2020-01-30] MEDS: Calcium Carbonate 500 MG Tablet 1000 MG PO ×2 (13:08→18:40)
--- NOTE | 2020-01-30 14:28 | CHAPLAIN ---
Type of Pastoral Visit _x__ Initial Visit ___ Follow-up Visit ___ On-call Visit ___ General Patient Visit ___ Spiritual Assessment ___ Family Conference ___ Bereavement ___ Rapid Response ___ Code Blue ___ Other (describe below) Pastoral Care Referral From _x__ Patient ___ Family ___ Nurse ___ Physician ___ Rag Shredder ___ Associate Professor Physician ___ Other (describe below) Sacrament/Intervention _x__ Active listening ___ Anointing ___ Christian ___ Bereavement ___ Communion _x__ Keren exploration ___ _x__ Life review _x__ Prayer ___ Reconciliation ___ Sacrament of Sick _x__ Supportive presence ___ Wedding ___ Other (describe below) Pastoral Comments patient is quick to invite this boiler/chiller operator to sit and talk; pt expresses during visit his willingness to talk with someone; pt states I don't think I will be around very long and together this is explored for meaning, emotional and spiritual impact, preparedness for future, family, etc.; pt goal is to be out in nature/on front porch and enjoying the quiet and animals; pt disappointment is not seeing grandchild grow up; pt is open to support and invites this boiler/chiller operator for future visits; pt concern is for his spouse who says she is doing better than she really is
[2020-01-31 03:01] VITALS: PULSE 76
[2020-01-31] MEDS: Calcium Carbonate 500 MG Tablet 1000 MG PO ×3 (04:12→13:20)
[2020-01-31] MEDS: oxyCODONE 5 MG Tablet PO (04:14)
[2020-01-31 04:21] VITALS: BP 100/64; PULSE 73; RESP 17; TEMP 36.7; O2SAT 96
[2020-01-31] MEDS: morphine SR 15 MG Tablet PO ×2 (05:20→13:19)
[2020-01-31 06:25] LABS: Absolute Lymphocyte Count 0.72 X10^3/uL (0.83-4.51); Absolute Neutrophil Count 8.2 X10^3/uL (2.0-7.7); Basophil# 0.02 X10^3/uL; Basophil% 0.2 % (0-1); Eosinophil# 0.02 X10^3/uL; Eosinophils% 0.2 % (0-5); Hematocrit 27.7 % (40-54); Hemoglobin 8.9 g/dL (13.0-16.5); Lymphocyte # 0.72 X10^3/ul (4.0); Lymphocyte % 7.3 % (19-41); Mean Corp Hgb Conc 32.1 g/dL (32-36); Mean Corpuscular Hgb 26.6 pg (27.0-32.0); Mean Corpuscular Volume 82.7 fL (80-94); Mean Platelet Vol. 8.5 fl (6.2-12.0); Monocyte% 9.1 % (0-10); NRBC Flagged by Analyzer 0 % (0-5); Neutrophil # 8.18 X10^3/uL (2.7-7.7); Neutrophil % 82.5 % (47-70); Platelet Count 186 K/mm3 (150-450); RBC Distribution Width SD 45.6 fl (35.1-43.9); Red Blood Count 3.35 M/mm3 (4.6-6.2); White Blood Count 9.9 K/mm3 (4.4-11.0)
[2020-01-31 07:02] LABS: Anion Gap 5 (5-15); BUN 7 mg/dL (7-18); BUN/Creat Ratio 15.9 RATIO (10-20); Calcium,Total 8.2 mg/dL (8.5-10.1); Chloride 101 mmol/L (98-107); Creatinine, Serum 0.44 mg/dL (0.70-1.30); EST Glomerular Filtration Rate 214 mL/min (>60); Est Glom Filt Rate - Afr Amer 259 mL/min (>60); Estimated Creatinine Clearance 174.66 ml/min; Glucose 144 mg/dL (74-106); Potassium 3.9 mmol/L (3.5-5.1); Sodium Level 132 mmol/L (136-145)
[2020-01-31 07:35] VITALS: O2SAT 98
[2020-01-31 07:38] VITALS: PULSE 76
[2020-01-31 09:06] VITALS: BP 101/62; PULSE 83; RESP 16; TEMP 36.8; O2SAT 96
[2020-01-31] MEDS: Enoxaparin 60 MG/0.6 ML Syringe SC (09:09)
[2020-01-31] MEDS: dexAMETHasone 4 MG Tablet 2 MG PO (09:09)
[2020-01-31] MEDS: 0.9% Saline Lock 10 ML Syringe IV ×2 (09:10→13:44)
--- NOTE | 2020-01-31 10:48 | DCINST_ITS ---
You will use the following diet at home:: No restrictions Your food should be the consistency of: Regular Your liquids should be the consistency of: Regular/Thin Discharge Activity: Return to Normal Activity Call your doctor if you observe: Uncontrolled pain Allergies/Adverse Reactions: Allergies No Known Allergies Allergy (Verified 01/29/20 15:04) Medications to take at Discharge Morphine Sulfate 15 mg PO TID 10/19/19 Oxycodone [Oxyir] 5 mg PO Q8H PRN 10/19/19 Dexamethasone [Decadron] 2 mg PO DAILY@0800 30 Days #30 tab 12/25/19 Ondansetron [Ondansetron Odt] 4 mg PO TID PRN PRN 10 Days #30 tab.rapdis 12/25/19 Calcium Carbonate [Tums] 1,000 mg PO Q4H PRN PRN 01/29/20 Enoxaparin Sodium [Lovenox] 100 mg SQ DAILY #30 syringe 01/31/20 The following prescriptions were given: Enoxaparin Sodium [Lovenox] 100 mg SQ DAILY #30 syringe Transmission Status: Pending to [id number] Primary Care Physician: Doe Mcrae [employer] ADMINISTRATOR, [employer] ADMINISTRATOR-C [Primary Care Provider] - Please follow up with your Primary Care Physician in: 1-2 weeks Test Results: Test results from this visit will be discussed in further detail at your follow- up appointment, if applicable. Please Follow Up With: Roberto Alvarado MD When: 1 week Proposed Discharge Date: 01/31/20
--- NOTE | 2020-01-31 11:30 | CASEMGMT ---
Therapy is recommending further therapy for pt at this time and per Rafaela ACEVES, pt is agreeable to OP therapy at [facility] at this time. This RN CM to room and pt states the same. Order obtained for OP PT/OT at [facility] and faxed to [facility] at this time and original to pt. Pt voices no further questions/concerns/needs at this time. SStaten JOVANA CM
--- NOTE | 2020-01-31 12:28 | PHA.DC.MC ---
Pharmacy Service has performed discharge medication reconciliation and counseling for this patient. 1. ENOXAPARIN 100MG SC DAILY The patient's discharge medication list was reviewed for discrepancies and discrepancies were resolved. Home Medications Morphine Sulfate 15 mg PO TID 10/19/19 Oxycodone [Oxyir] 5 mg PO Q8H PRN 10/19/19 Dexamethasone [Decadron] 2 mg PO DAILY@0800 30 Days #30 tab 12/25/19 Ondansetron [Ondansetron Odt] 4 mg PO TID PRN PRN 10 Days #30 tab.rapdis 12/25/19 Calcium Carbonate [Tums] 1,000 mg PO Q4H PRN PRN 01/29/20 Enoxaparin Sodium [Lovenox] 100 mg SQ DAILY #30 syringe 01/31/20 The patient was counseled on the following discharge medications and changes in medications for homegoing were reviewed. The Reason for Use, instructions for use, and potential side effects were reviewed for all new medications. The patient's questions regarding all of their medications were answered. The patient was able to verbally demonstrate an understanding of their discharge medications. Patient was counseled by hospital pharmacy director, Ina.
--- NOTE | 2020-01-31 14:22 | PCM.DC.SUM ---
<Darius Goel - Last Filed: 01/31/20 14:22> Discharge Date and Diagnosis Date of Admission: 01/29/20 Date of Discharge: 01/31/20 - Primary Discharge Diagnosis Acute Problems: DVT, PE right foot drop unclear etiology Stroke, brain mets ruled out Duodenal cancer hyponatremia - Secondary Discharge Diagnosis Chronic Problems: Chronic Problems Duodenal adenocarcinoma (Chronic) Intractable hiccups (Chronic) Neutropenia, drug-induced (Chronic) Tinea versicolor (Chronic) Tobacco use (Chronic) Hospital Course and Treatment Imaging Results: IMAGING: Venous US: Interpretation Summary Acute deep venous thrombosis left common femoral, femoral, popliteal, tibioperoeal trunk, gastrocnemius, posterior tibial, peroneal, and soleus veins Patent, compressible left great saphenous vein Normal flow patterns right common femoral vein CT/CTA Chest W/WO Contrast IMPRESSION: Positive for pulmonary embolism of the distal main right pulmonary artery extending into the descending and ascending pulmonary arteries. Echo: Interpretation Summary The study was technically difficult. Segmental dysfunction with preserved ejection fraction (see wall motion). The estimated ejection fraction is 55 %. Trivial mitral valve insufficiency. Trivial tricuspid valve insufficiency. Mild focal aortic valve calcification. Unable to estimate RV systolic pressure/pulmonary artery pressure due to technically difficult study. Transmitral doppler flow suggestive of impaired relaxation of left ventricle Bubble contrast study negative for right to left interatrial shunt. MRI/Brain without Contrast IMPRESSION: Normal unenhanced MRI of the brain. Operations: None Procedures: 2-D Echocardiogram Summary of Care Provided: Hospital course: The patient is a 54 year old M with pmhx of duodenal cancer prior DVT/PE who presents to the ER with c/o left calf pain. Venous US demonstrated extensive DVT. CTA showed PE. He was placed on heparin drip. He was admitted to the PCU. He had no respiratory complaints but did continue to have left calf pain. This interfered with his walking, and was further complicated by right foot drop that started recently after a fall. With his cancer hx an MRI was obtained to look for mass or stroke. This was negative. PTOT was provided and recommended ongoing PTOT - this was arranged for him to have as an outpatient. He was transitioned to lovenox for treatment of DVT/PE. He was discharged home in stable condition and will need close follow up with his oncologist- keep prior appointment. He will also have routine follow up with his PCP in 1-2 weeks. This patient was seen by Darius Geol PA-C under the supervision of Doctor Derek. [] - Physical Exam Vitals/I&O's: Vital Signs Temp Pulse Resp BP Pulse Ox 98.2 F 83 16 101/62 96 01/31/20 09:06 01/31/20 09:06 01/31/20 09:06 01/31/20 09:06 01/31/20 09:06 Oxygen Delivery Method Room Air Weight: 140 lb 3.424 oz Body Mass Index (BMI) 21.9 Intake and Output for Last 24 Hours 01/29/20 01/30/20 01/31/20 23:59 23:59 23:59 Intake Total 1281 / 1281 1559.9 / 1559.9 240 / 240 Output Total 250 / 250 325 / 325 Balance 1031 / 1031 1234.9 / 1234.9 240 / 240 General: Alert, Oriented x3, Cooperative HEENT: Atraumatic, PERRLA, EOMI, Normocephalic Neck: Supple, No JVD, Negative Carotid Bruits Lungs: Clear to auscultation, Normal air movement Cardiovascular: Regular rate, No murmurs Abdomen: Bowel Sounds Present, Soft, Non Tender Extremities: No edema, Capillary Refill Less than 3 Seconds Skin: No rashes, No breakdown Musculoskeletal: No Tenderness to Palpation of Joints or Extremities, - - right foot drop, left calf + francisca sign Neurological: Cranial nerves II-XII grossly intact Psych/Mental Status: Normal Affect, Appropriate, Alert and oriented to time, place, person, mood and affect Laboratory Results 01/31/20 06:15: WBC 9.9, RBC 3.35 L, Hgb 8.9 L, Hct 27.7 L, MCV 82.7, MCH 26.6 L, MCHC 32.1, RDW Std Deviation 45.6 H, RDW Coeff of Rc 15.0 H, Plt Count 186, MPV 8.5, Immature Gran % (Auto) 0.700, Neut % (Auto) 82.5 H, Lymph % (Auto) 7.3 L, [place] % (Auto) 9.1, Eos % (Auto) 0.2, Baso % (Auto) 0.2, Absolute Neuts (auto) 8.2 H, Absolute Lymphs (auto) 0.72 L, Nucleated RBC % 0 01/31/20 06:15: Sodium 132 L, Potassium 3.9, Chloride 101, Carbon Dioxide 26.0, Anion Gap 5, BUN 7, Creatinine 0.44 L, Estim Creat Clear Calc 174.66, Est GFR (MDRD) Af Amer 259, Est GFR (MDRD) Non-Af 214, BUN/Creatinine Ratio 15.9, Glucose 144 H, Calcium 8.2 L Discharge Diet: Low fat/ Low Cholesterol, 2000 mg Sodium Diet Discharge Activity: Return to Normal Activity Call your doctor if you observe: Uncontrolled pain Home Medications: Medications to take at Discharge Morphine Sulfate 15 mg PO TID 10/19/19 Oxycodone [Oxyir] 5 mg PO Q8H PRN 10/19/19 Dexamethasone [Decadron] 2 mg PO DAILY@0800 30 Days #30 tab 12/25/19 Ondansetron [Ondansetron Odt] 4 mg PO TID PRN PRN 10 Days #30 tab.rapdis 12/25/19 Calcium Carbonate [Tums] 1,000 mg PO Q4H PRN PRN 01/29/20 Enoxaparin Sodium [Lovenox] 100 mg SQ DAILY #30 syringe 01/31/20 Following Prescriptions Were Given to Patient: Enoxaparin Sodium [Lovenox] 100 mg SQ DAILY #30 syringe Transmission Status: Received by [facility][id number] Primary Care Physician: Doe Mcrae [employer]INKLING SYSTEM INSTALLER, SPRINKLING SYSTEM INSTALLER-C [Primary Care Provider] - Please follow up with your Primary Care Physician in: 1-2 weeks Please Follow Up With: Roberto Alvarado MD When: 1 week Disposition: Home Minutes spent on discharge:: 35 Patient Condition:: Stable Medical Necessity - Tobacco Use Smoking Status: Current every day smoker Tobacco Use: Cigarettes Meaningful Use Info Meaningful Use Diagnoses (Choose all that apply): VTE - VTE Anticoag overlap given w/in hospital stay or rx'd at ca?: No Pt receive overlap for 5 days?: No Reason overlap not ordered, prescribed, or given for 5 days: Procedure Not Indicated <Abhi Reed - Last Filed: 01/31/20 16:33> Discharge Date and Diagnosis - Secondary Discharge Diagnosis Chronic Problems: Chronic Problems Duodenal adenocarcinoma (Chronic) Intractable hiccups (Chronic) Neutropenia, drug-induced (Chronic) Tinea versicolor (Chronic) Tobacco use (Chronic) Hospital Course and Treatment Summary of Care Provided: This patient was seen in conjunction with Darius GOOD. I have independently interviewed and examined the patient and reviewed pertinent history, examination findings, laboratory and plan of management. I have reviewed the note and agree with the documented findings with the few additional points. In brief, patient is 53-year-old question intermittent with history of pancreatitis and duodenal poorly differentiated carcinoma with ulceration, currently on Xeloda and radiation, being managed by Dr. Alvarado. He is admitted for left lower extremity extensive DVT and right pulmonary main pulmonary artery and major primary division pulmonary embolism. Discussed with oncologist, Dr Alvarado. We agreed to continue Lovenox after discharge. Patient is discharged on Lovenox 100 mg subcu daily. The doses of Lovenox discussed with oncologist. Xeloda was hold while patient is in the hospital and advised to complete the course of the medication at home. 2D echo was done and reported EF 55% with mild diastolic dysfunction. Normal RV systolic function and size. Troponin and BNP normal. As patient had mild right lower extremity about 1 to 2 weeks ago and right foot drop therefore MRI brain was done. Unenhanced MRI brain reported normal. 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 Patient is on radiation and Xeloda. I have discussed my assessment with Darius GOOD and orders have been reviewed. Home with outpatient physical therapy for right foot drop Discharge medication reconciliation done. Discharge follow-up instructions completed. Discharge process discussed with the patient and all questions were answered to patient's satisfaction. Total time spent, exact 35 minutes on discharge meds reconciliation, examination, coordination of care with nurses and ancillary staff, review of imaging and blood test and discussion with the patient on follow-up instructions Clinical Impression(s) from Imaging Studies Chest CTA 01/29/20 15:50 IMPRESSION: Positive for pulmonary embolism of the distal main right pulmonary artery extending into the descending and ascending pulmonary arteries. Brain MRI 01/30/20 11:35 IMPRESSION: Normal unenhanced MRI of the brain. [] Objective: Seen and examined. No new complaint. Patient has left foot drop probably secondary to neuropathy or side/adverse effect of chemotherapy. Vitals are stable. Patient pulse ox 96% on room air. Physical exam General: Alert, Oriented x3, Cooperative, weak, mild protein calorie malnutrition, BMI 22, body weight 140 pounds. HEENT: Atraumatic, PERRLA, EOMI, Normocephalic Oral: No Gingival or Mucosal Lesions/ Ulcerations Neck: Supple, No JVD, Negative Carotid Bruits Lungs: Air entry diminished in bilateral lung bases. No crepitation/rhonchi. Right upper chest MediPort. Cardiovascular: Regular rate, Regular Rhythm, Normal S1, Normal S2, No murmurs Abdomen: Bowel Sounds Present, Soft, Non Tender, Non-Distended. Right upper quadrant external biliary drainage draining bile. : No renal angle tenderness. No suprapubic tenderness. Extremities: No edema, Capillary Refill Less than 3 Seconds. Mild muscle atrophy of upper and lower extremity. Left lower extremity is tender, swollen, and indurated due to DVT. Right lower extremity mild weakness with right foot drop. Skin: No rashes, No breakdown Musculoskeletal: No Tenderness to Palpation of Joints or Extremities Neurological: Cranial nerves II-XII grossly intact, Deep Tendon Reflexes 2+/4 and Symmetrical, Neuro grossly intact. No change in sensation. Mild right lower leg weakness. Left leg power was not evaluated due to pain Psych/Mental Status: Normal Affect, Appropriate. - Physical Exam Vitals/I&O's: Vital Signs Temp Pulse Resp BP Pulse Ox 98.2 F 83 16 101/62 96 01/31/20 09:06 01/31/20 09:06 01/31/20 09:06 01/31/20 09:06 01/31/20 09:06 Oxygen Delivery Method Room Air Weight: 140 lb 3.424 oz Body Mass Index (BMI) 21.9 Intake and Output for Last 24 Hours 01/29/20 01/30/20 01/31/20 23:59 23:59 23:59 Intake Total 1281 / 1281 1559.9 / 1559.9 240 / 240 Output Total 250 / 250 325 / 325 Balance 1031 / 1031 1234.9 / 1234.9 240 / 240 Laboratory Results 01/31/20 06:15: WBC 9.9, RBC 3.35 L, Hgb 8.9 L, Hct 27.7 L, MCV 82.7, MCH 26.6 L, MCHC 32.1, RDW Std Deviation 45.6 H, RDW Coeff of Rc 15.0 H, Plt Count 186, MPV 8.5, Immature Gran % (Auto) 0.700, Neut % (Auto) 82.5 H, Lymph % (Auto) 7.3 L, [place] % (Auto) 9.1, Eos % (Auto) 0.2, Baso % (Auto) 0.2, Absolute Neuts (auto) 8.2 H, Absolute Lymphs (auto) 0.72 L, Nucleated RBC % 0 01/31/20 06:15: Sodium 132 L, Potassium 3.9, Chloride 101, Carbon Dioxide 26.0, Anion Gap 5, BUN 7, Creatinine 0.44 L, Estim Creat Clear Calc 174.66, Est GFR (MDRD) Af Amer 259, Est GFR (MDRD) Non-Af 214, BUN/Creatinine Ratio 15.9, Glucose 144 H, Calcium 8.2 L Inpatient E&M: [id number] Disch Hosp
--- NOTE | 2020-02-01 15:52 | CASEMGMT ---
JOVANA VALENCIA Discharge F/U Phone Call LACE: 12 Strata: 3 Discharge date: 01/31/2020 Call date: 02/01/2020 Call time: [id number] Admission dx: PE/DVT Pt states has been doing 'pretty good' since discharge and states no questions regarding discharge instructions/medications at this time. Pt states has f/u appt's all scheduled and plans to keep. Pt states no suggestions for [facility] at this time. Pt voices no further questions/concerns/needs at this time. [place] JOVANA VALENCIA
== END 2020-01-31 13:55 | disposition home or self-care (01) | DRG 299 ==
LOC: ED 16:15 → PCU 17:53
PROVIDERS: Physician Assistant; Admitting Provider Student in an Organized Health Care Education/Training Program; Emergency Provider Emergency Medicine; PCP Nurse Practitioner Family; Visit Provider Internal Medicine
DX: I82.412 Acute embolism and thrombosis of left femoral vein (principal); I26.99 Other pulmonary embolism without acute cor pulmonale; C17.0 Malignant neoplasm of duodenum; C78.7 Secondary malignant neoplasm of liver and intrahepatic bile duct; E87.1 Hypo-osmolality and hyponatremia; K86.1 Other chronic pancreatitis; E44.1 Mild protein-calorie malnutrition; I82.432 Acute embolism and thrombosis of left popliteal vein; I82.442 Acute embolism and thrombosis of left tibial vein; I82.452 Acute embolism and thrombosis of left peroneal vein; I82.492 Acute embolism and thrombosis of other specified deep vein of left lower extremity; I82.462 Acute embolism and thrombosis of left calf muscular vein; Z86.711 Personal history of pulmonary embolism; Z86.718 Personal history of other venous thrombosis and embolism; F17.210 Nicotine dependence, cigarettes, uncomplicated; Z79.899 Other long term (current) drug therapy; B36.0 Pityriasis versicolor; M21.371 Foot drop, right foot; Z90.49 Acquired absence of other specified parts of digestive tract; Z68.22 Body mass index [BMI] 22.0-22.9, adult; G89.29 Other chronic pain
CPT/HCPCS: 36415; 36591; 70551; 71275; 80048; 80053; 81001; 83605; 83735; 83880; 84100; 84484; 85025; 85610; 85730; 87040; 93005; 93306; 93971; 97162; 99284; 99406; J7030; Q9967; A4216; J2405

== ENCOUNTER 2020-02-14 08:47 | Outpatient (RCR) | payer OTHER, SELFPAY ==
[2019-07-11 14:16] VITALS: BMI 29.7
[2020-02-08 08:54] VITALS: BMI 22.4
--- NOTE | 2020-02-14 10:28 | HP.PTEVAL_ITS ---
Patient's Visit Information RIZWANA CARTER is a 54 year old M referred to Physical Therapy by FLORENTINO Guerra with a diagnosis of Weakness-Cancer. Date of Evaluation: 02/14/20 Physical Therapist: Patsy Thompson DPT - Visit Plan Frequency: 2x /Week Duration: 4 Weeks Plan: Focus on LE functional mobility and balance- Caution right foot drop. Gait Belt - Subjective Patient reports that about 2 months ago he has been on chemo/radiation for cancer he got up to and he fell down and busted his head open- then he got blood clots in the left leg and then the right leg stopped working. Reports he has fallen a couple of times- last time was a couple of weeks ago. Uses a quad cane at all times which he started using about a month and a half ago. Fully I prior to cancer diagnosis (about 2 years ago). Lives with his in a single story living arrangment- 3 steps to enter with hand on both sides. No problems getting in/out. Still I with all dressing and bathing but does not drive- due to his LE weakness. No pain in the lower extremeties- he does have low back pain and stomach pains. He feels the low back pain is due to the cancer- has been to chiro which was not helpful. Back pain comes and goes- does not radiate. Worst: 10/10 Agg: nothing Eases: pain medication Best: 0/10. Does have numbness in the right and left- Right is worse than the left- does not radiate up the leg. Feels like he is losing strength. Is still doing chemo- every 3 weeks and he takes pills for 2 weeks. Sleep: not disturbed- but does have a hard time sleeping due to pain in his back and belly. Falls: normally he goes facefirst- catches his toes a lot and gets wrapped up in his blankets. Work: does not work due to cancer- knows he will never work again. Goals: try to get more independent and maintain so he does not become wheelchair dependant. Has a rollerator at home but does not use it. He really does not go anywhere other than doctor apts. - Objective Posture: FH, RS- can correct but is unable to maintain. Gait: angtalgic- decreased heel/toe pattern with the right LE- foot drop on right with increased hip flexion for compensation- slow jason- Quad cane. HR/TR: HR able unable to TR on the right in standing, Sitting able to demo TR contraction but unable to perform full movement. SLS: weight shift but unable to balance. Balance: Tandem Stance: Left foot forwards:10 seconds Right foot forwards: 30 seconds- both with increased sway, walking backwards: slow, walking forwards eyes closed significant sway. Eyes open balance narrow KELSEY: 30 sec moderate sway Eyes closed balance narrow KELSEY: 5 sec then LOB significant sway. Sensation: diminished on the right LE to gross touch. Reflex: Patellar: absent bilaterally. ROM: WFL in all planes. Strength: Core: poor, Hip: 4/5 throughout Knee: 5/5, Ankle: Right: DF: 2+/5, PF: 4-/5, Left: 4+/5. Flex: HS: mild, Gastroc: moderate - Goals Goal 1:: Patient will be I with HEP and progression Goal Time Frame: 4-6 Weeks Goal 2:: Patient will ambualte >300 feet with a normalized gait pattern with normal jason and LRD Goal Time Frame: 4-6 Weeks Goal 3:: Patient will asc/desc 8 stairs recip with 1 HR and good control Goal Time Frame: 4-6 Weeks Goal 4:: Patient will demo 4+/5 strength in all deficit areas Goal Time Frame: 4-6 Weeks - Rehabilitation Potential Physical Therapy Diagnosis: Patient presents with hypomobility- he has decreased strength and muscular endurance leading to poor balance and abnormal gait pattern Rehabilitation Potential: Fair - Anticipated Interventions Patient/Client Instruction: Educate patient on: Benefits of Fitness Program Therapeutic Exercise to Include: Strength training, Endurance training, Balance training, Coordination, Agility training, Body mechanics, Postural training, Flexibilty training, Gait and locomotor training, Neuromotor development, Winifred sherron Lumbar Stabilization, Scapular Strength/Stabilization For the Purpose of:: To improve muscle performance and motor function Thank you for the opportunity to evaluate your patient. For Medicare and Medicare HMO plans, please review the plan of care and approve it. It will need to be FAXED BACK to us at [phone] for Medicare purposes. For Medicare only, by signing this I certify the plan of care. Please let me know if there are questions or concerns regarding this plan of care. Physician Signature: Date:
--- NOTE | 2020-02-15 08:58 | HP.OTEVAL_ITS ---
Patient's Visit Information RIZWANA CARTER is a 54 year old M, referred to Occupational Therapy by FLORENTINO Guerra, with a diagnosis of Cancer/weakness. Date of Evaluation: 02/14/20 Occupational Therapist: Eliz Palmer, OTR/Chrissy, CHT - Subjective This 54 year old male was seen for OT eval with dx of Cancer/ weakness. Pt st ates he has been going through cancer tx for 2 years. pt states untill he had is fall he has been off work for about one year but remained active remodeling his home. Patient reports that about 2 months ago he has been on chemo/radiation for cancer he got up to and he fell down and busted his head open- then he got blood clots in the left leg and then the right leg stopped working. Reports he has fallen a couple of times- last time was a couple of weeks ago. Uses a quad cane at all times which he started using about a month and a half ago. Pt lives with his in a two story home with first floor set-up.- 3 steps to enter with hand on both sides. No problems getting in/out. Still I with all dressing and bathing but does not drive- due to his LE weakness right foot drop and numbness. [ End ] - Pain stomach and back 6 Pain Intensity Range: 7, 9 - ROM ROM Comments: pt demo BUE ROM WNL - Strength Shoulder: right/left 4/5 Elbow: right/left 4/5 Forearm: right/left 4/5 Medical Assisting Program Director: right 60# left 55# Lateral Pinch: right 16# left 18# Tripod Pinch: right 15# left 15# - Quick DASH-Disab of Arm,Shoulder& Hand Quick DASH Score: 13.6350 - Rehabilitation General Assessment: Pt demo with weakness in BUE limiting pts ind. with ADls and ADLs. Pt currently has more concerns with ambulation and balance. Pt agree to HEP for UB and will cont to see physical therapy for his balance. While pt is in clinic with PT therapist will check with pt to ensure he has no questions or concerns with his BUE PRE HEP. Today therapist instructed pt in t-band BUE HEP. biceps/tricpes/shoulder flex/scap. pt was given handout and demo understanding of ex well. Pt d/c with HEP - Anticipated Interventions Strengthening, Home Program - Visit Plan TEXT: Thank you for the opportunity to evaluate your patient. For Medicare and Medicare HMO plans, please review the plan of care and approve it. It will need to be FAXED BACK to us at [phone] for Medicare purposes. Please let me know if there are questions or concerns regarding this plan of care. Physician Signature: Date:
--- NOTE | 2020-02-15 08:58 | HP.OTDCSUM_ITS ---
It has been my pleasure to treat RIZWANA CARTER under orders from FLORENTINO Guerra, for the diagnosis of Cancer/weakness for a total of 1 visit(s). Please see the following information for a summary of their discharge status. PT was seen for OT eval and after discussion with pt agree to HEP for BUE strengthening and PT for balance and leg weakness. Pt was given handout on HEP a nd demo understanding of exercises. This therapist will check on him while he is going through PT to ensure not new concerns arise. pt agree to POC. Patient Goals: Regain Strength If there are questions or concerns regarding this patient's occupational therapy, please fell free to call me at [phone]. Thank you for the referral of this patient. Sincerely, Eliz Palmer, OTR/L, CHT
--- NOTE | 2020-03-27 10:16 | HP.PT.NRP ---
RIZWANA CARTER was seen in my office for initial evaluation on 02/14/20. The following Plan of Care was established for this patient: Initial Frequency: 2x /Week Initial Duration: 4 Weeks Patient/Client Instruction: Educate patient on: Benefits of Fitness Program Therapeutic Exercise to Include: Strength training, Endurance training, Balance training, Coordination, Agility training, Body mechanics, Postural training, Flexibilty training, Gait and locomotor training, Neuromotor development, Dynamic Lumbar Stabilization, Scapular Strength/Stabilization For the Purpose of:: To improve muscle performance and motor function This patient was last seen in our office . Pertinent comments regarding their Physical therapy will appear below: Patient has not attended PT since IE- appropricate for d/c at this time- return to MD for further evaluation as needed. At this point I will be discontinuing this patient from physical therapy. I would be happy to see this patient again in the future if found appropriate by the physician. Thank you! Patsy Thompson DPT
== END 2020-02-14 19:00 | disposition home or self-care (01) ==
LOC: PT 08:47
PROVIDERS: PCP Nurse Practitioner Family; Referring Provider Nurse Practitioner Family; Visit Provider Nurse Practitioner Family
DX: C17.0 Malignant neoplasm of duodenum (principal); Z86.718 Personal history of other venous thrombosis and embolism; Z86.711 Personal history of pulmonary embolism
CPT/HCPCS: 97110; 97162; 97166

== ENCOUNTER → 2020-02-22 14:59 | Outpatient (CLI) | payer OTHER, SELFPAY ==
[2019-07-11 14:16] VITALS: BMI 29.7
[2020-02-22 10:26] VITALS: BMI 22.4
--- NOTE | 2020-02-22 15:10 | RAD_ITS ---
STUDY: X-RAY - ABDOMEN/PELVIS REASON FOR EXAM: Male, 54 years old. SMALL BOWEL CANCER. ABDOMINAL PAIN. BILE DRAINAGE BAG ATTACHED AROUND PELVIS. TECHNIQUE: 4 AP views of the abdomen/pelvis. COMPARISON: X-ray dated 08/25/2018. FINDINGS: Right-sided drainage catheter with tip near midline. Right upper quadrant surgical clips. Nonobstructed bowel gas pattern. No intra-abdominal free air. Minimal costophrenic angle blunting/trace effusions. Osseous structures intact. RAD/Abd Inc Decub and/or Erect IMPRESSION: Nonobstructive bowel gas pattern Right upper quadrant drainage catheter with post surgical change Minimal costophrenic angle blunting/trace effusions Electronically Signed: Jeremías Ruggiero DO at 9:21 EDT Tel , Service support ,
== END ==
PROVIDERS: PCP Nurse Practitioner Family; Referring Provider Internal Medicine Medical Oncology; Visit Provider Internal Medicine Medical Oncology
DX: C17.0 Malignant neoplasm of duodenum (principal)
CPT/HCPCS: 74019